=== PATIENT | female | born 1950 | race Caucasian/White ===

== ENCOUNTER 2023-05-22 23:22 | Emergency (ER) | payer MEDICARE, MEDICAID, SELFPAY ==
[2023-05-22 23:28] VITALS: BP 133/91; PULSE 76; RESP 16; TEMP 36.9; O2SAT 99
--- NOTE | 2023-05-22 23:36 | PC.NURSE ---
patient sent from [facility] per EMS for low blood sugar , no report received from [facility]. EMS staff states they were told by [facility] nurse that the patient had a blood sugar in the 60s around 10pm. at that time patient was given glucagon. EMS arrived at [facility] around approx 1115pm and obtained FSBS 113. patient has no complaints at this time aside from chronic back pain, states they discontinued her pain medications at the general acute hospital. states she does not know why the staff sent her to the ER, states she told the [facility] nurse that she did not want to go to the ER and also told EMS staff that she did not want to be taken to the ER.
--- NOTE | 2023-05-22 23:43 | ED.GENADUL1 ---
HPI - General Adult General Chief complaint: Recheck/Abnormal Lab/Rx Stated complaint: HYPOGLYCEMIA Time Seen by Provider: 05/22/23 23:43 Source: patient Mode of arrival: ambulance History of Present Illness HPI narrative: patient resides at half-way. Found to have BS in the 60s. She responded to glucagon. When Squad arrived her BS was 113. she now presents asymptomatic. does have chills. Denies cough. Dialysis patient and does not pass urine. No cough, abdominal pain. She is wearing a cam boot on the left foot due to recent ankle fracture managed by ortho. Onset (ago): hour(s) Related Data Home Medications Medication Instructions Recorded Confirmed acetaminophen 500 mg capsule 500 mg PO Q6H PRN pain 05/22/23 05/22/23 albuterol sulfate 90 mcg/actuation inhalation 05/22/23 aerosol inhaler allopurinol 100 mg tablet 100 mg PO DAILY 05/22/23 05/22/23 apixaban 5 mg tablet (Eliquis) 5 mg PO BID 05/22/23 05/22/23 biotin 5 mg capsule 5 mg PO DAILY 05/22/23 05/22/23 cholecalciferol (vitamin D3) 25 1,000 unit PO DAILY 05/22/23 05/22/23 mcg (1,000 unit) capsule docusate sodium 100 mg capsule 200 mg PO DAILY 05/22/23 05/22/23 (Colace) dulaglutide 0.75 mg/0.5 mL mg subcut 05/22/23 subcutaneous pen injector (Trulicity) fluticasone furoate 100 1 inh inhalation DAILY 05/22/23 05/22/23 mcg-vilanterol 25 mcg/dose inhalation powder (Breo Ellipta) folic acid 1 mg tablet 1 mg PO DAILY 05/22/23 05/22/23 hyoscyamine sulfate 0.125 mg 0.125 mg sublingual Q4H PRN 05/22/23 05/22/23 sublingual tablet dyspepsia insulin regular hum U-500 conc 500 20 unit subcut .COMPLEX 05/22/23 05/22/23 unit/mL(3 mL) subcut pen (Humulin R U-500 (Conc) Insulin Kwikpen) levothyroxine 125 mcg tablet 225 mcg PO DAILY 05/22/23 05/22/23 midodrine 10 mg tablet 10 mg PO .COMPLEX 05/22/23 05/22/23 nutrition tx glu ea PO 05/22/23 intol,lac-free,soy-fiber 0.06 gram-1.1 kcal/mL liquid (Boost Glucose Control) pregabalin 50 mg capsule 50 mg PO DAILY 05/22/23 05/22/23 famotidine 20 mg tablet (Pepcid) 20 mg PO DAILY 05/23/23 05/23/23 hydrocodone 5 mg-acetaminophen 325 2 tab PO Q12H PRN pain 05/23/23 05/23/23 mg tablet midodrine 10 mg tablet 10 mg PO TID 05/23/23 05/23/23 montelukast 10 mg tablet 10 mg PO DAILY 05/23/23 05/23/23 omeprazole 20 mg capsule,delayed 20 mg PO DAILY 05/23/23 05/23/23 release polyethylene glycol ea miscellaneous 05/23/23 sennosides 15 mg tablet (Laxative 8.6 mg PO DAILY 05/23/23 05/23/23 (sennosides)) sevelamer carbonate 800 mg tablet 2,400 mg PO DAILY 05/23/23 05/23/23 sevelamer carbonate 800 mg tablet 800 mg PO .COMPLEX 05/23/23 05/23/23 sodium polystyrene sulfonate 15 120 ml PO .COMPLEX 05/23/23 05/23/23 gram-sorbitol 20 gram/60 mL oral susp (SPS (with sorbitol)) Allergies Allergy/AdvReac Type Severity Reaction Status Date / Time aspirin Allergy Verified 05/22/23 23:34 gentamicin Allergy Verified 05/22/23 23:34 NSAIDS (Non-Steroidal Allergy Verified 05/22/23 23:34 Anti-Inflamma oxycodone Allergy Verified 05/22/23 23:34 Penicillins Allergy Verified 05/22/23 23:34 shrimp Allergy Verified 05/22/23 23:34 tetanus Allergy Uncoded 05/22/23 23:34 Review of Systems ROS Status of ROS 10 or more systems reviewed and unremarkable except as noted in history and below Constitutional Reports: chills Exam Constitutional Vital Signs - 24 hr 05/22/23 23:28 Temperature 98.5 F Pulse Rate [Monitor] 76 Respiratory Rate 16 Blood Pressure [Right Arm] 133/91 H Pulse Oximetry 99 Common normals: no apparent distress and oriented x3 HENMT Common normals: normocephalic and head/scalp atraumatic Eye Common normals: PERRL, EOMs intact bilaterally and conjunctivae normal Respiratory Common normals: normal respiratory effort, no use of accessory muscles and clear to auscultation bilaterally Cardio Common normals: regular rate, regular rhythm, S1 normal heart sound and S2 normal heart sound GI Common normals: non-tender Extremity Other: cam boot LLE Neuro Common normals: oriented x3 and moves all extremities Psych Appearance: grossly normal Course Vital Signs Vital signs: Vital Signs Temperature 98.5 F 05/22/23 23:28 Pulse Rate 76 05/22/23 23:28 Respiratory Rate 16 05/22/23 23:28 Blood Pressure 133/91 H 05/22/23 23:28 Pulse Oximetry 99 05/22/23 23:28 Temperature 98.5 F 05/22/23 23:28 Pulse Rate 76 05/22/23 23:28 Respiratory Rate 16 05/22/23 23:28 Blood Pressure 133/91 H 05/22/23 23:28 Pulse Oximetry 99 05/22/23 23:28 Medical Decision Making MDM Narrative Medical decision making narrative: patient presents from half-way with hypoglycemia. labs demonstrate her BS did decline while she was here. treated by feeding her and monitoring her BS. it improved and was increasing at the time of discharge. She remains stable and is discharged back to the half-way to monitor and treat her diabetes. lab did demonstrate elevated WBC which is not unexpected in someone who becomes hypoglycemic as a reactive leukocytosis Lab Data Labs: Lab Results 05/22/23 05/23/23 05/23/23 Range/Units 00:18 02:06 03:10 WBC 14.8 H (4.0-11.0) 10^3/uL RBC 3.34 L (4.20-5.40) 10^6/uL Hgb 11.3 L (12.0-16.0) g/dL Hct 36.5 (36.0-48.0) % MCV 109.3 H (81.0-99.0) fL MCH 33.8 (26.7-34.0) pg MCHC 31.0 (29.9-35.2) g/dL RDW 13.3 (11.0-15.0) % Plt Count 188 (150-450) 10^3/uL MPV 10.5 (9.5-13.5) fL Neut % (Auto) 80.9 H (43.0-75.0) % Lymph % (Auto) 12.9 L (20.5-60.0) % Latimer % (Auto) 3.9 (1.7-12.0) % Eos % (Auto) 1.1 (0.9-7.0) % Baso % (Auto) 0.5 (0.2-2.0) % Neut # (Auto) 11.9 H (1.4-6.5) 10^3/uL Lymph # (Auto) 1.9 (1.2-3.8) 10^3/uL Latimer # (Auto) 0.6 (0.3-0.8) 10^3/uL Eos # (Auto) 0.2 (0.0-0.7) 10^3/uL Baso # (Auto) 0.1 (0.0-0.1) 10^3/uL Abs Immat Gran (auto) 0.10 H (0.00-0.03) 10^3/uL Imm/Tot Granulo (auto) 0.7 H (0.0-0.5) % Sodium 139 (136-145) mmol/L Potassium 4.4 (3.5-5.1) mmol/L Chloride 99 (98-107) mmol/L Carbon Dioxide 29.5 (21.0-32.0) mmol/L Anion Gap 14.9 BUN 33.0 H (7.0-18.0) mg/dL Creatinine 5.06 H* (0.55-1.02) mg/dL Est GFR ( Amer) 10 L (>=60) Est GFR (Non-Af Amer) 8 L (>=60) BUN/Creatinine Ratio 6.5 Glucose 108 H (74-106) mg/dL Calcium 9.3 (8.5-10.1) mg/dL POC Glucose 86 124 H (74-106) mg/dL 05/23/23 Range/Units 04:04 WBC (4.0-11.0) 10^3/uL RBC (4.20-5.40) 10^6/uL Hgb (12.0-16.0) g/dL Hct (36.0-48.0) % MCV (81.0-99.0) fL MCH (26.7-34.0) pg MCHC (29.9-35.2) g/dL RDW (11.0-15.0) % Plt Count (150-450) 10^3/uL MPV (9.5-13.5) fL Neut % (Auto) (43.0-75.0) % Lymph % (Auto) (20.5-60.0) % Latimer % (Auto) (1.7-12.0) % Eos % (Auto) (0.9-7.0) % Baso % (Auto) (0.2-2.0) % Neut # (Auto) (1.4-6.5) 10^3/uL Lymph # (Auto) (1.2-3.8) 10^3/uL Latimer # (Auto) (0.3-0.8) 10^3/uL Eos # (Auto) (0.0-0.7) 10^3/uL Baso # (Auto) (0.0-0.1) 10^3/uL Abs Immat Gran (auto) (0.00-0.03) 10^3/uL Imm/Tot Granulo (auto) (0.0-0.5) % Sodium (136-145) mmol/L Potassium (3.5-5.1) mmol/L Chloride (98-107) mmol/L Carbon Dioxide (21.0-32.0) mmol/L Anion Gap BUN (7.0-18.0) mg/dL Creatinine (0.55-1.02) mg/dL Est GFR ( Amer) (>=60) Est GFR (Non-Af Amer) (>=60) BUN/Creatinine Ratio Glucose (74-106) mg/dL Calcium (8.5-10.1) mg/dL POC Glucose 173 H (74-106) mg/dL Discharge Plan Discharge Chief Complaint: Recheck/Abnormal Lab/Rx Clinical Impression: Hypoglycemia Patient Disposition: Home, Self-Care Prescriptions / Home Meds: No Action acetaminophen 500 mg capsule 500 mg PO Q6H PRN (Reason: pain) allopurinol 100 mg tablet 100 mg PO DAILY albuterol sulfate 90 mcg/actuation HFA aerosol inhaler INHALATION biotin 5 mg capsule 5 mg PO DAILY Boost Glucose Control 0.06-1.1 gram-kcal/mL liquid PO fluticasone furoate-vilanterol [Breo Ellipta] 100-25 mcg/dose blister with device 1 inh INHALATION DAILY cholecalciferol (vitamin D3) 25 mcg (1,000 unit) capsule 1,000 unit PO DAILY docusate sodium [Colace] 100 mg capsule 200 mg PO DAILY Eliquis 5 mg tablet 5 mg PO BID Trulicity 0.75 mg/0.5 mL pen injector SUBCUT folic acid 1 mg tablet 1 mg PO DAILY Humulin R U-500 (Conc) Kwikpen 500 unit/mL (3 mL) insulin pen 20 unit SUBCUT .COMPLEX Rx Instructions: 20 units subcutaneously at bedtime; hyoscyamine sulfate 0.125 mg tablet, sublingual 0.125 mg sublingual Q4H PRN (Reason: dyspepsia) levothyroxine 125 mcg tablet 225 mcg PO DAILY pregabalin 50 mg capsule 50 mg PO DAILY midodrine 10 mg tablet 10 mg PO .COMPLEX Rx Instructions: 10 mg orally Mon, Wed, Fri, for hypotension at dialysis; midodrine 10 mg tablet 10 mg PO TID Rx Instructions: do not give last dose of day after 6PM or within 4 hrs of bedtime montelukast 10 mg tablet 10 mg PO DAILY hydrocodone-acetaminophen 5-325 mg tablet 2 tab PO Q12H PRN (Reason: pain) omeprazole 20 mg capsule,delayed release(DR/EC) 20 mg PO DAILY famotidine [Pepcid] 20 mg tablet 20 mg PO DAILY polyethylene glycol Powder miscellaneous Laxative (sennosides) 15 mg tablet 8.6 mg PO DAILY sevelamer carbonate 800 mg tablet 800 mg PO .COMPLEX Rx Instructions: 800 mg orally bedtime; sevelamer carbonate 800 mg tablet 2,400 mg PO DAILY SPS (with sorbitol) 15-20 gram/60 mL suspension 120 ml PO .COMPLEX Rx Instructions: 120 mL orally every 24hrs as needed for missed dialysis; Instructions: Hypoglycemia in a Person with Diabetes (ED) Additional Instructions: continue to have blood sugar monitor at the half-way Stand Alone Forms: Portal Instructions Referrals: KELLI CARLSON [Primary Care Provider] - 1 week
[2023-05-23 00:31] LABS: Basophils Absolute Auto 0.1 10^3/uL (0.0-0.1); Basophils Percent Auto 0.5 % (0.2-2.0); Eosinophils Absolute Auto 0.2 10^3/uL (0.0-0.7); Eosinophils Percent Auto 1.1 % (0.9-7.0); Hematocrit 36.5 % (36.0-48.0); Hemoglobin 11.3 g/dL (12.0-16.0); Immature Granulocytes Pct Auto 0.7 % (0.0-0.5); Lymphocytes Absolute Auto 1.9 10^3/uL (1.2-3.8); Lymphocytes Percent Auto 12.9 % (20.5-60.0); Mean Corpuscular Hemoglobin 33.8 pg (26.7-34.0); Mean Corpuscular Volume 109.3 fL (81.0-99.0); Mean Platelet Volume 10.5 fL (9.5-13.5); Monocytes Absolute Auto 0.6 10^3/uL (0.3-0.8); Monocytes Percent Auto 3.9 % (1.7-12.0); Neutrophils Absolute Auto 11.9 10^3/uL (1.4-6.5); Neutrophils Percent Auto 80.9 % (43.0-75.0); Platelet Count 188 10^3/uL (150-450); Red Blood Count 3.34 10^6/uL (4.20-5.40); Red Cell Distribution Width 13.3 % (11.0-15.0); White Blood Count 14.8 10^3/uL (4.0-11.0)
[2023-05-23 00:46] LABS: Anion Gap 14.9; BUN Creatinine Ratio 6.5; Calcium 9.3 mg/dL (8.5-10.1); Carbon Dioxide 29.5 mmol/L (21.0-32.0); Chloride 99 mmol/L (98-107); Estimated GFR (African America 10 (>=60); Estimated GFR (Non-African Ame 8 (>=60); Glucose 108 mg/dL (74-106); Potassium 4.4 mmol/L (3.5-5.1); Sodium 139 mmol/L (136-145)
[2023-05-23 02:08] LABS: Glucometer 86 mg/dL (74-106)
[2023-05-23 03:12] LABS: Glucometer 124 mg/dL (74-106)
[2023-05-23 04:05] LABS: Glucometer 173 mg/dL (74-106)
[2023-05-23 05:30] VITALS: BP 122/53; PULSE 87; RESP 16; O2SAT 98
== END 2023-05-23 05:33 | disposition home or self-care (01) ==
PROVIDERS: Emergency Provider Internal Medicine; PCP Family Medicine
DX: E11.649 Type 2 diabetes mellitus with hypoglycemia without coma (principal); Z79.899 Other long term (current) drug therapy; Z79.01 Long term (current) use of anticoagulants; Z79.4 Long term (current) use of insulin
CPT/HCPCS: 36415; 80048; 82948; 85025; 99283

== ENCOUNTER 2023-05-26 13:42 | Outpatient (OUT) | payer MEDICARE, MEDICAID, SELFPAY ==
--- NOTE | 2023-05-26 14:29 | CT_ITS ---
[address] [address] Patient Name: ANNA DOHERTY MRN: [facility]:[id number] date: 1950 Sex: F Assigned Patient Location: CT Current Patient Location: CT Accession/Order Number: [id number] Exam Date: 05/26/2023 14:10 Report Date: 05/26/2023 15:38 At the request of: NON-STAFF PHYSICIAN Procedure: CT abdomen pelvis wo con EXAM: CT abdomen pelvis wo con HISTORY: Kidney Stone COMPARISON: 04/19/2019 TECHNIQUE: Axial CT images were obtained of the abdomen and pelvis without intravenous contrast. Multiplanar reconstructions were performed. ABDOMEN/PELVIS FINDINGS: Lower Chest: Atelectasis or scarring is present in the left lung base. There is a trace left pleural effusion. Liver: Normal nonenhanced appearance and contour. Biliary/Gallbladder: High density material present homogenously throughout the distended gallbladder lumen. A tiny gallstone is noted in the gallbladder neck. Pancreas: Unremarkable. Spleen: Unremarkable. Adrenal Glands: Unremarkable. Kidneys: The kidneys are atrophied bilaterally. Tiny hypodense lesions are present in the kidneys bilaterally which most likely represent cysts.. Multiple small nonobstructing renal calculi are present bilaterally. Gastrointestinal/Peritoneum: No acute abnormality. The appendix is unremarkable. No free air or free fluid. Vascular: Moderate scattered atherosclerotic calcifications are present. Lymph Nodes: No enlarged lymph nodes by CT size criteria. Pelvic Organs: Prior hysterectomy. Bladder: The urinary bladder is nondistended Bones: No acute osseous abnormality. The bones are osteopenic. Multiple chronic vertebral compression fractures are present throughout the visualized spine at T11, T12, L2, L3 Soft tissues: Unremarkable. IMPRESSION: 1. No acute abnormality of the abdomen and pelvis. 2. Nephrolithiasis. 3. Bilateral renal atrophy. 4. Excretion of high density material in the gallbladder lumen which is distended, correlate with possible recent contrast administration. 5. Tiny gallstone in the gallbladder neck region. 6. Osteopenia with multilevel chronic vertebral compression fractures. 7. Prior hysterectomy. Electronically authenticated by: DELIO WESLEY Date: 05/26/2023 15:38
== END 2023-05-26 13:43 | disposition home or self-care (01) ==
LOC: CT 13:43
PROVIDERS: PCP Family Medicine
DX: N20.0 Calculus of kidney (principal); K80.20 Calculus of gallbladder without cholecystitis without obstruction; N26.1 Atrophy of kidney (terminal); K82.9 Disease of gallbladder, unspecified; Z90.710 Acquired absence of both cervix and uterus
CPT/HCPCS: 74176

== ENCOUNTER 2023-06-30 08:15 | Outpatient (REF) | payer MEDICARE, MEDICAID, SELFPAY ==
[2023-06-30 08:33] LABS: Potassium 3.9 mmol/L (3.5-5.1)
== END 2023-06-30 08:16 | disposition home or self-care (01) ==
LOC: LAB 08:15
PROVIDERS: PCP Family Medicine; Visit Provider Internal Medicine
DX: E87.5 Hyperkalemia (principal)
CPT/HCPCS: 36415; 84132

== ENCOUNTER 2023-07-21 12:28 | Emergency (ER) | payer MEDICARE, MEDICAID, SELFPAY ==
[2023-07-21] VITALS (23 sets, daily range): BP systolic 97–153; BP diastolic 0–94; PULSE 71–87; RESP 5–24; TEMP 37; O2SAT 62–99; BMI 39.2
--- NOTE | 2023-07-21 12:40 | CT_ITS ---
The [address] [address] Patient Name: ANNA DOHERTY MRN: [facility]:[id number] date: 1950 Sex: F Assigned Patient Location: ER Current Patient Location: ED.MAIN Accession/Order Number: [id number] Exam Date: 07/21/2023 12:30 Report Date: 07/21/2023 12:58 At the request of: KENDELL JOHNSON Procedure: CT stroke head/brain wo con HEAD CT WITHOUT CONTRAST: 07/21/2023 12:30 PM EDT Clinical Data: Altered Mental Status while on dialysis Comparison: No previous Unenhanced axial data from base to vertex. INTRA-AXIAL: No acute hemorrhage. No acute infarction is evident. EXTRA-AXIAL: No acute hemorrhage. No focal fluid collection BRAIN VOLUME: Mild cerebral atrophy. VENTRICLES: No hydrocephalus PARANASAL SINUSES: No air-fluid levels in the included aspects. Confluent total opacification left maxillary antrum, left anterior ethmoids, and near total opacification left frontal sinus. The left OMC is completely occluded at the level of the middle meatus. MASTOIDS: Clear. CALVARIUM: No acute finding. EXTRACALVARIAL: No acute findings CT/CT stroke head/brain wo con IMPRESSION: 1. No evidence of acute intracranial process on this unenhanced study as described. 2. Significant opacification anterior group of paranasal sinus on the left. Occlusion of drainage pathways at the middle meatus. This may be on the basis of sinonasal inflammatory disease but underlying obstructing lesions with associated inspissated secretions not excluded. All CT scans at this facility use dose modulation, iterative reconstruction, and/or weight based dosing when appropriate to reduce radiation dose to as low as reasonably achievable. Electronically authenticated by: SAMMY GRAJEDA Date: 07/21/2023 12:58
--- NOTE | 2023-07-21 12:55 | ED_ITS ---
HPI - Altered Mental Status General Chief Complaint: Altered Mental Status Stated Complaint: ALTERED MENTAL STATUS Time Seen by Provider: 07/21/23 12:55 Source: patient and other Source comment: EMS PROVIDES HX Mode of arrival: ambulance Limitations: altered mental status History of Present Illness HPI narrative: Presents to emergency department via EMS with a complaint of mental status oswaldo smith. Patient is an end-stage renal disease on hemodialysis Wednesdays and Fridays. She went to her hemodialysis this morning was slightly confused they finish the entire dialysis treatment and she continued to have mentation changes so she was brought into the emergency department. Patient's glucose was 211. Patient complains of left Leg pain. She is awake, alert and oriented to self, place, and situation. She was not able to provide the date. Patient is a resident at the [facility]. She has not been sick with any fever, chills, or cough. She denies any nausea, vomiting, or diarrhea. She denies any abdominal pain. She states she does not make any urine. She states her ankle was injured [place]. She was given Tylenol this morning for the pain. Related Data Home Medications Medication Instructions Recorded Confirmed acetaminophen 500 mg capsule 500 mg PO Q6H PRN pain 05/22/23 05/22/23 albuterol sulfate 90 mcg/actuation 2 puff inhalation Q4H PRN 05/22/23 07/21/23 aerosol inhaler shortness of breath or wheezing allopurinol 100 mg tablet 100 mg PO DAILY 05/22/23 05/22/23 apixaban 5 mg tablet (Eliquis) 5 mg PO BID 05/22/23 05/22/23 biotin 5 mg capsule 5 mg PO DAILY 05/22/23 05/22/23 cholecalciferol (vitamin D3) 25 1,000 unit PO DAILY 05/22/23 05/22/23 mcg (1,000 unit) capsule docusate sodium 100 mg capsule 200 mg PO DAILY 05/22/23 05/22/23 (Colace) dulaglutide 0.75 mg/0.5 mL 0.75 mg subcut QWEEK 05/22/23 07/21/23 subcutaneous pen injector (Trulicity) fluticasone furoate 100 1 inh inhalation DAILY 05/22/23 05/22/23 mcg-vilanterol 25 mcg/dose inhalation powder (Breo Ellipta) folic acid 1 mg tablet 1 mg PO DAILY 05/22/23 05/22/23 hyoscyamine sulfate 0.125 mg 0.125 mg sublingual Q4H PRN 05/22/23 05/22/23 sublingual tablet dyspepsia insulin regular hum U-500 conc 500 20 unit subcut .COMPLEX 05/22/23 05/22/23 unit/mL(3 mL) subcut pen (Humulin R U-500 (Conc) Insulin Kwikpen) levothyroxine 125 mcg tablet 225 mcg PO DAILY 05/22/23 05/22/23 midodrine 10 mg tablet 10 mg PO .COMPLEX 05/22/23 05/22/23 nutrition tx glu See Rx Instructions PO .QHS 05/22/23 07/21/23 intol,lac-free,soy-fiber 0.06 gram-1.1 kcal/mL liquid (Boost Glucose Control) pregabalin 50 mg capsule 100 mg PO DAILY 05/22/23 07/21/23 famotidine 20 mg tablet (Pepcid) 20 mg PO DAILY 05/23/23 05/23/23 hydrocodone 5 mg-acetaminophen 325 2 tab PO Q12H PRN pain 05/23/23 05/23/23 mg tablet montelukast 10 mg tablet 10 mg PO DAILY 05/23/23 05/23/23 omeprazole 20 mg capsule,delayed 20 mg PO DAILY 05/23/23 05/23/23 release polyethylene glycol See Rx Instructions miscellaneous 05/23/23 07/21/23 .COMPLEX sennosides 15 mg tablet (Laxative 15 mg PO DAILY 05/23/23 07/21/23 (sennosides)) sevelamer carbonate 800 mg tablet 2,400 mg PO TID 05/23/23 07/21/23 sevelamer carbonate 800 mg tablet 800 mg PO .COMPLEX 05/23/23 05/23/23 sodium polystyrene sulfonate 15 120 ml PO .COMPLEX 05/23/23 05/23/23 gram-sorbitol 20 gram/60 mL oral susp (SPS (with sorbitol)) Allergies Allergy/AdvReac Type Severity Reaction Status Date / Time aspirin Allergy Verified 07/21/23 12:47 gentamicin Allergy Verified 07/21/23 12:47 NSAIDS (Non-Steroidal Allergy Verified 07/21/23 12:47 Anti-Inflamma oxycodone Allergy Verified 07/21/23 12:47 Penicillins Allergy Verified 07/21/23 12:47 shrimp Allergy Verified 07/21/23 12:47 tetanus Allergy Uncoded 07/21/23 12:47 Review of Systems ROS Status of ROS 10 or more systems reviewed and unremarkable except as noted in history and below [facility] Medical History (Updated 07/21/23 @ 14:31 by Rachael Reveles MD) Exam Narrative Exam Narrative: Nurses notes and vital signs reviewed and patient is not hypoxic. General:Elderly, frail, chronically ill, and in no apparent distress. Skin: Warm, dry, no pallor noted. No Rash Head: Normocephalic, atraumatic. Neck: Supple, non-tender. Eye: Pupils are equal, 1mm. round and EOMI. No scleral icterus. Ears, Nose, Mouth, and Throat: no hemotympany, no posterior oropharynx erythema or nasal mucosal hypertrophy, uvula is mid-line Oral mucosa is dry Cardiovascular: Regular Rate and Rhythm without murmur, gallop or rub. Respiratory: No accessory muscle use or respiratory distress. Lungs are clear to auscultation, no wheezing, rales or rhonchi Chest Wall: no tenderness Back: No midline thoracic or lumbar vertebral tenderness. No CVA tenderness Musculoskeletal: normal ROM, no calf or popliteal tenderness, no lower extremity edema/swelling GI: Obese,Abdomen is soft, non-distended. Normal bowel sounds. No tenderness to palpation. No rebound, guarding, or rigidity noted. Neurological: A&O x2. No cranial nerve dysfunction observed.moves all extremities. Psychiatric: Cooperative Constitutional Vital Signs, click to edit/add: Last Vital Signs Temp 98.6 F 07/21/23 12:41 Pulse 71 07/21/23 16:00 Resp 11 L 07/21/23 16:00 BP 129/55 07/21/23 16:00 Pulse Ox 90 L 07/21/23 16:00 O2 Del Method Room Air 07/21/23 12:41 Course Vital Signs Vital signs: Vital Signs Temperature 98.6 F 07/21/23 12:41 Pulse Rate 86 07/21/23 12:41 Respiratory Rate 20 07/21/23 12:41 Pulse Oximetry 97 07/21/23 12:41 Oxygen Delivery Method Room Air 07/21/23 12:41 Temperature 98.6 F 07/21/23 12:41 Pulse Rate 71 07/21/23 16:00 Respiratory Rate 11 L 07/21/23 16:00 Blood Pressure 129/55 07/21/23 16:00 Pulse Oximetry 90 L 07/21/23 16:00 Oxygen Delivery Method Room Air 07/21/23 12:41 MDM - Altered Mental Status MDM Narrative Medical decision making narrative: CT scan of the brain was done does not show anything acute. Patient complained of left foot pain. She was given [place] for the pain. Patient has a palpable dp+2, tp+2. With discussed the patient with the caregiver at the [facility] who advises the patient has this kind of episodes and has [facility] with the same typee of complaint. And they don't find anything focal. At this time the patient is without objective evidence of an acute process requiring hospitalization or inpatient management. The patient has remained hemodynamically stable. No additional indication for emergent studies at this time. I answered all questions. Discussed discharge instructions including standard anticipatory guidance and what should prompt a return to the emergency department, including if they get worse are not getting better or develops any new or concerning symptoms. I've given them specific time frame in which to follow-up, and who to follow-up with. The patient demonstrates understanding. Patient is nontoxic and stable for discharge with outpatient follow-up. This note was created with the assistance of a speech recognition program. Although the intention is to generate documents that actually reflects the content of the visit, no guarantees can be provided that every mistake has been identified and corrected by editing. Differential Diagnosis Differential diagnosis: Likely altered mental status Medical Records Attestation: I reviewed the patient's medical records. Lab Data Attestation: I reviewed the patient's lab results. Labs: Lab Results 07/21/23 Range/Units 13:07 WBC 10.1 (4.0-11.0) 10^3/uL RBC 3.29 L (4.20-5.40) 10^6/uL Hgb 11.2 L (12.0-16.0) g/dL Hct 34.9 L (36.0-48.0) % MCV 106.1 H (81.0-99.0) fL MCH 34.0 (26.7-34.0) pg MCHC 32.1 (29.9-35.2) g/dL RDW 13.4 (11.0-15.0) % Plt Count 168 (150-450) 10^3/uL MPV 10.8 (9.5-13.5) fL Neut % (Auto) 76.4 H (43.0-75.0) % Lymph % (Auto) 16.2 L (20.5-60.0) % [place] % (Auto) 6.0 (1.7-12.0) % Eos % (Auto) 0.5 L (0.9-7.0) % Baso % (Auto) 0.4 (0.2-2.0) % Neut # (Auto) 7.7 H (1.4-6.5) 10^3/uL Lymph # (Auto) 1.6 (1.2-3.8) 10^3/uL [place] # (Auto) 0.6 (0.3-0.8) 10^3/uL Eos # (Auto) 0.1 (0.0-0.7) 10^3/uL Baso # (Auto) 0.0 (0.0-0.1) 10^3/uL Abs Immat Gran (auto) 0.05 H (0.00-0.03) 10^3/uL Imm/Tot Granulo (auto) 0.5 (0.0-0.5) % PT 10.7 (9.0-11.6) sec INR 1.01 APTT 32.8 (22.3-36.2) sec Sodium 135 L (136-145) mmol/L Potassium 4.3 (3.5-5.1) mmol/L Chloride 93 L (98-107) mmol/L Carbon Dioxide 29.2 (21.0-32.0) mmol/L Anion Gap 17.1 BUN 29.0 H (7.0-18.0) mg/dL Creatinine 4.15 H (0.55-1.02) mg/dL Est GFR ( Amer) 13 L (>=60) Est GFR (Non-Af Amer) 11 L (>=60) BUN/Creatinine Ratio 7.0 Glucose 245 H (74-106) mg/dL Calcium 9.7 (8.5-10.1) mg/dL Total Bilirubin 0.8 (0.2-1.0) mg/dL AST 11 L (15-37) U/L ALT 22 (14-59) U/L Alkaline Phosphatase 259 H (46-116) U/L Troponin I High Sens 15.4 (4.0-51.3) pg/mL Total Protein 8.2 (6.4-8.2) g/dL Albumin 3.9 (3.4-5.0) g/dL Globulin 4.3 g/dL Albumin/Globulin Ratio 0.9 ECG Data Attestation: I personally reviewed and interpreted this ECG as follows: Discharge Plan Discharge Chief Complaint: Altered Mental Status Clinical Impression: ESRD (end stage renal disease) on dialysis, Altered mental status, Chronic pain in left foot Patient Disposition: Home, Self-Care Time of Disposition Decision: 14:30 Condition: Good Mode of Transportation: EMS Prescriptions / Home Meds: No Action acetaminophen 500 mg capsule 500 mg PO Q6H PRN (Reason: pain) allopurinol 100 mg tablet 100 mg PO DAILY albuterol sulfate 90 mcg/actuation HFA aerosol inhaler 2 puff INHALATION Q4H PRN (Reason: shortness of breath or wheezing) biotin 5 mg capsule 5 mg PO DAILY Boost Glucose Control 0.06-1.1 gram-kcal/mL liquid See Rx Instructions PO .QHS Rx Instructions: 237 ML orally QHS; fluticasone furoate-vilanterol [Breo Ellipta] 100-25 mcg/dose blister with device 1 inh INHALATION DAILY cholecalciferol (vitamin D3) 25 mcg (1,000 unit) capsule 1,000 unit PO DAILY docusate sodium [Colace] 100 mg capsule 200 mg PO DAILY Eliquis 5 mg tablet 5 mg PO BID Trulicity 0.75 mg/0.5 mL pen injector 0.75 mg SUBCUT QWEEK Rx Instructions: EVERY MONDAY folic acid 1 mg tablet 1 mg PO DAILY Humulin R U-500 (Conc) Kwikpen 500 unit/mL (3 mL) insulin pen 20 unit SUBCUT .COMPLEX Rx Instructions: 20 units subcutaneously at bedtime; hyoscyamine sulfate 0.125 mg tablet, sublingual 0.125 mg sublingual Q4H PRN (Reason: dyspepsia) levothyroxine 125 mcg tablet 225 mcg PO DAILY pregabalin 50 mg capsule 100 mg PO DAILY midodrine 10 mg tablet 10 mg PO .COMPLEX Rx Instructions: 10 mg orally Mon, Wed, Fri, for hypotension at dialysis; montelukast 10 mg tablet 10 mg PO DAILY hydrocodone-acetaminophen 5-325 mg tablet 2 tab PO Q12H PRN (Reason: pain) omeprazole 20 mg capsule,delayed release(DR/EC) 20 mg PO DAILY famotidine [Pepcid] 20 mg tablet 20 mg PO DAILY polyethylene glycol Powder See Rx Instructions miscellaneous .COMPLEX Rx Instructions: 17 GRAMS QD as directed; Laxative (sennosides) 15 mg tablet 15 mg PO DAILY sevelamer carbonate 800 mg tablet 800 mg PO .COMPLEX Rx Instructions: 800 mg orally bedtime; sevelamer carbonate 800 mg tablet 2,400 mg PO TID SPS (with sorbitol) 15-20 gram/60 mL suspension 120 ml PO .COMPLEX Rx Instructions: 120 mL orally every 24hrs as needed for missed dialysis; Instructions: Altered Mental Status (ED), End Stage Kidney Disease (ED) Stand Alone Forms: Portal Instructions Referrals: KELLI CARLSON [Primary Care Provider] - 1 week Discharge Date/Time: 07/21/23 16:00
--- NOTE | 2023-07-21 13:00 | XR_ITS ---
The [address] [address] Patient Name: ANNA DOHERTY MRN: [id number] date: 1950 Sex: F Assigned Patient Location: ER Current Patient Location: ER Accession/Order Number: [id number] Exam Date: 07/21/2023 13:20 Report Date: 07/21/2023 13:45 At the request of: KENDELL JOHNSON Procedure: XR chest 1V EXAM: XR chest 1V HISTORY: mentla status changes COMPARISON: None. TECHNIQUE: AP view of the chest. FINDINGS: The cardiomediastinal silhouette is normal. The lungs are clear. There is no pneumothorax. No pleural effusion is noted. The osseous structures are intact. XR/XR chest 1V IMPRESSION: No acute cardiopulmonary process. Electronically authenticated by: PALAK GUNN Date: 07/21/2023 13:45
--- NOTE | 2023-07-21 13:00 | ECG_ITS ---
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
[2023-07-21 13:19] LABS: Basophils Percent Auto 0.4 % (0.2-2.0); Eosinophils Absolute Auto 0.1 10^3/uL (0.0-0.7); Eosinophils Percent Auto 0.5 % (0.9-7.0); Hematocrit 34.9 % (36.0-48.0); Hemoglobin 11.2 g/dL (12.0-16.0); Immature Granulocytes Abs Auto 0.05 10^3/uL (0.00-0.03); Immature Granulocytes Pct Auto 0.5 % (0.0-0.5); Lymphocytes Absolute Auto 1.6 10^3/uL (1.2-3.8); Lymphocytes Percent Auto 16.2 % (20.5-60.0); Mean Corpuscular HGB Conc 32.1 g/dL (29.9-35.2); Mean Corpuscular Volume 106.1 fL (81.0-99.0); Mean Platelet Volume 10.8 fL (9.5-13.5); Monocytes Absolute Auto 0.6 10^3/uL (0.3-0.8); Neutrophils Absolute Auto 7.7 10^3/uL (1.4-6.5); Neutrophils Percent Auto 76.4 % (43.0-75.0); Platelet Count 168 10^3/uL (150-450); Red Blood Count 3.29 10^6/uL (4.20-5.40); Red Cell Distribution Width 13.4 % (11.0-15.0); White Blood Count 10.1 10^3/uL (4.0-11.0)
[2023-07-21 13:31] LABS: Alanine Aminotransferase 22 U/L (14-59); Albumin Globulin Ratio 0.9; Albumin Level 3.9 g/dL (3.4-5.0); Alkaline Phosphatase 259 U/L (46-116); Anion Gap 17.1; Aspartate Amino Transferase 11 U/L (15-37); Bilirubin Total 0.8 mg/dL (0.2-1.0); Calcium 9.7 mg/dL (8.5-10.1); Carbon Dioxide 29.2 mmol/L (21.0-32.0); Chloride 93 mmol/L (98-107); Estimated GFR (African America 13 (>=60); Estimated GFR (Non-African Ame 11 (>=60); Globulin 4.3 g/dL; Glucose 245 mg/dL (74-106); Potassium 4.3 mmol/L (3.5-5.1); Sodium 135 mmol/L (136-145); Total Protein 8.2 g/dL (6.4-8.2); Troponin I High Sensitivity 15.4 pg/mL (4.0-51.3)
[2023-07-21 13:33] LABS: INR 1.01; Partial Thromboplastin Time 32.8 sec (22.3-36.2); Prothrombin Time 10.7 sec (9.0-11.6)
== END 2023-07-21 16:00 | disposition home or self-care (01) ==
PROVIDERS: Emergency Provider Emergency Medicine; PCP Family Medicine
DX: R41.82 Altered mental status, unspecified (principal); N18.6 End stage renal disease; M79.672 Pain in left foot; G89.29 Other chronic pain; Z99.2 Dependence on renal dialysis; Z79.899 Other long term (current) drug therapy; Z79.01 Long term (current) use of anticoagulants; Z79.4 Long term (current) use of insulin; Z79.890 Hormone replacement therapy
CPT/HCPCS: 36415; 70450; 71045; 80053; 84484; 85610; 85730; 93005; 99285

== ENCOUNTER 2023-09-01 10:22 | Outpatient (REF) | payer MEDICARE, MEDICAID, SELFPAY ==
[2023-09-04 13:11] LABS: Occult Blood Positive
== END 2023-09-01 10:23 | disposition home or self-care (01) ==
LOC: LAB 10:22
PROVIDERS: PCP Family Medicine
DX: D64.9 Anemia, unspecified (principal)
CPT/HCPCS: G0328

== ENCOUNTER 2023-09-03 10:19 | Outpatient (REF) | payer MEDICARE, MEDICAID, SELFPAY ==
[2023-09-04 13:11] LABS: Occult Blood Positive
== END 2023-09-03 10:20 | disposition home or self-care (01) ==
LOC: LAB 10:19
PROVIDERS: PCP Family Medicine; Visit Provider Family Medicine
DX: D64.9 Anemia, unspecified (principal)
CPT/HCPCS: G0328

== ENCOUNTER 2023-09-05 00:32 | Outpatient (REF) | payer MEDICARE, MEDICAID, SELFPAY ==
[2023-09-06 16:04] LABS: Occult Blood Positive
== END 2023-09-05 00:33 | disposition home or self-care (01) ==
LOC: LAB 00:32
PROVIDERS: PCP Family Medicine; Visit Provider Family Medicine
DX: D64.9 Anemia, unspecified (principal)
CPT/HCPCS: G0328

== ENCOUNTER 2023-09-15 07:57 | Outpatient (REF) | payer MEDICARE, MEDICAID, SELFPAY ==
[2023-09-15 08:12] LABS: Potassium 5.3 mmol/L (3.5-5.1)
== END 2023-09-15 07:58 | disposition home or self-care (01) ==
LOC: LAB 07:57
PROVIDERS: PCP Family Medicine; Visit Provider Internal Medicine Nephrology
DX: E87.5 Hyperkalemia (principal)
CPT/HCPCS: 36415; 84132

== ENCOUNTER 2023-12-04 15:26 | Outpatient (OUT) | payer MEDICARE, MEDICAID, SELFPAY | END 2023-12-04 15:27 | disposition home or self-care (01) | LOC: SLEEP 15:26 | PROVIDERS: PCP Nurse Practitioner Adult Health; Visit Provider Nurse Practitioner Adult Health | DX: G47.33 Obstructive sleep apnea (adult) (pediatric) (principal) ==

== ENCOUNTER 2023-12-11 07:00 | Outpatient (OUT) | payer MEDICARE, MEDICAID, SELFPAY | END 2023-12-11 07:01 | disposition home or self-care (01) | LOC: SLEEP 12-12 15:27 | PROVIDERS: PCP Nurse Practitioner Adult Health; Visit Provider Nurse Practitioner Adult Health | DX: R40.4 Transient alteration of awareness (principal); G47.33 Obstructive sleep apnea (adult) (pediatric) | CPT/HCPCS: 95806 ==

== ENCOUNTER 2024-01-31 15:18 | Emergency (ER) | payer MEDICARE, MEDICAID, SELFPAY ==
[2024-01-31] VITALS (31 sets, daily range): BP systolic 118–129; BP diastolic 60–88; PULSE 75–93; RESP 12–24; TEMP 37.1; O2SAT 84–100; BMI 41.7
--- NOTE | 2024-01-31 15:00 | ECG_ITS ---
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
--- NOTE | 2024-01-31 15:30 | ED_ITS ---
HPI - General Adult General Chief complaint: Abdominal Pain Stated complaint: FLANK PAIN Time Seen by Provider: 01/31/24 15:26 Source: patient Mode of arrival: ambulance Limitations: no limitations History of Present Illness HPI narrative: Patient is a 73-year-old female who is presenting to the ER today with chief complaint of pain since 8:00 last night. Patient states that she has been having pain last night, throughout the morning until now. Patient states that the [facility]. Patient Has multiple comorbidities, patien is on dialysis Monday, Monday, Monday, she did finish her dialysis. Patient has a history of kidney stones, patient was told that she has multiple kidney stones in her kidney. Last time patient passed a kidney stone was over 10 years ago. Patient has had stents in the past by urologist. Patient states her pain feels like kidney stone. Patient states she has all her abdominal organs besides no uterus. Patient does not ambulate, she is wheelchair-bound only. Patient does have an electric wheelchair that she can use. Patient has a fistula to her left upper arm. Patient has a graft in her left forearm that they do not use anymore. Dr. Richar English. Patient states she been having right shoulder pain since 2014 when she broke her right shoulder. 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 Patient has history of major depression. Patient does not make urine. All systems are negative except as noted/marked. All systems reviewed and otherwise negative. Nurses note and vital signs reviewed and patient is not hypoxic. General: The patient appears mild to moderate distress secondary to pain. Patient is morbidly obese, patient is resting uncomfortably on cart. Patient is not toxic, lethargic, or listless Skin: Warm, dry, no pallor noted. There is no rash noted. No petechiae, purpura. Head: Normocephalic, atraumatic Eye: Normal conjunctiva, no drainage, EOMI. PERRL Ears, Nose, Mouth, and Throat: oral mucosa is moist. Nares patent. Mouth without vesicles. Cardiovascular: Regular Rate and Rhythm, no murmur, gallop, rub. Patient has no rash to her right lower anterior, lateral, posterior chest wall. Patient has no rash to the right lower abdominal, lateral, or posterior lower back. Patient has no right CVA tenderness, no right flank pain, patient does have right upper quadrant and right lower quadrant tenderness to palpation, no suprapubic tenderness palpation. Respiratory: Patient is in no distress, no accessory muscle use, lungs are clear to auscultation, no wheezing, rales or rhonchi Back: non-tender, no CVA tenderness bilaterally to percussion. No CT LS midline pain GI: no tenderness to palpation, no masses appreciated. No rebound, guarding, or rigidity noted. No distention Musculoskeletal: Patient has full range of motion of all of the extremities; patient has pain with range of motion of right shoulder secondary to previous fracture back in 2015. Patient has a fistula to her left upper arm, good thrills and bruits. Patient has a graft to her left forearm with no thrills or bruits. no motor, sensory, or focal neurological deficits Neurological: A&O x4, normal speech Psychiatric: Cooperative Related Data Home Medications Medication Instructions Recorded Confirmed acetaminophen 500 mg capsule 500 mg PO Q6H PRN pain 05/22/23 01/31/24 albuterol sulfate 90 mcg/actuation 2 puff inhalation Q4H PRN 05/22/23 01/31/24 aerosol inhaler shortness of breath or wheezing allopurinol 100 mg tablet 100 mg PO DAILY 05/22/23 01/31/24 apixaban 5 mg tablet (Eliquis) 5 mg PO BID 05/22/23 01/31/24 biotin 5 mg capsule 5 mg PO DAILY 05/22/23 01/31/24 cholecalciferol (vitamin D3) 25 1,000 unit PO DAILY 05/22/23 01/31/24 mcg (1,000 unit) capsule docusate sodium 100 mg capsule 200 mg PO DAILY 05/22/23 01/31/24 (Colace) dulaglutide 0.75 mg/0.5 mL 0.75 mg subcut QWEEK 05/22/23 07/21/23 subcutaneous pen injector (Trulicity) fluticasone furoate 100 1 inh inhalation DAILY 05/22/23 01/31/24 mcg-vilanterol 25 mcg/dose inhalation powder (Breo Ellipta) folic acid 1 mg tablet 1 mg PO DAILY 05/22/23 01/31/24 hyoscyamine sulfate 0.125 mg 0.125 mg sublingual Q4H PRN 05/22/23 01/31/24 sublingual tablet dyspepsia insulin regular hum U-500 conc 500 20 unit subcut .COMPLEX 05/22/23 01/31/24 unit/mL(3 mL) subcut pen (Humulin R U-500 (Conc) Insulin Kwikpen) levothyroxine 125 mcg tablet 225 mcg PO DAILY 05/22/23 01/31/24 midodrine 10 mg tablet 10 mg PO Q4H 05/22/23 01/31/24 nutrition tx glu See Rx Instructions PO .QHS 05/22/23 07/21/23 intol,lac-free,soy-fiber 0.06 gram-1.1 kcal/mL liquid (Boost Glucose Control) pregabalin 50 mg capsule 100 mg PO DAILY 05/22/23 01/31/24 famotidine 20 mg tablet (Pepcid) 20 mg PO DAILY 05/23/23 05/23/23 hydrocodone 5 mg-acetaminophen 325 2 tab PO Q12H PRN pain 05/23/23 01/31/24 mg tablet montelukast 10 mg tablet 10 mg PO DAILY 05/23/23 01/31/24 omeprazole 20 mg capsule,delayed 20 mg PO Q12H 05/23/23 01/31/24 release polyethylene glycol See Rx Instructions miscellaneous 05/23/23 01/31/24 .COMPLEX sennosides 15 mg tablet (Laxative 15 mg PO DAILY 05/23/23 07/21/23 (sennosides)) sevelamer carbonate 800 mg tablet 2,400 mg PO TID 05/23/23 01/31/24 sevelamer carbonate 800 mg tablet 800 mg PO .COMPLEX 05/23/23 01/31/24 sodium polystyrene sulfonate 15 120 ml PO .COMPLEX 05/23/23 05/23/23 gram-sorbitol 20 gram/60 mL oral susp (SPS (with sorbitol)) fluconazole 100 mg tablet mg 01/31/24 levothyroxine 100 mcg tablet 100 mcg PO DAILY 01/31/24 01/31/24 nortriptyline 10 mg capsule 25 mg PO DAILY 01/31/24 01/31/24 ondansetron HCl 4 mg tablet 4 mg PO Q6H 01/31/24 01/31/24 semaglutide 3 mg tablet (Rybelsus) mg PO DAILY 01/31/24 sennosides 8.6 mg capsule (senna) 8.6 mg PO DAILY 01/31/24 01/31/24 Allergies Allergy/AdvReac Type Severity Reaction Status Date / Time aspirin Allergy Verified 07/21/23 12:47 gentamicin Allergy Verified 07/21/23 12:47 NSAIDS (Non-Steroidal Allergy Verified 07/21/23 12:47 Anti-Inflamma oxycodone Allergy Verified 07/21/23 12:47 Penicillins Allergy Verified 07/21/23 12:47 shrimp Allergy Verified 07/21/23 12:47 tetanus Allergy Uncoded 07/21/23 12:47 [facility] Medical History (Updated 01/31/24 @ 19:51 by Richar Phan MD) 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 ?Z79.4 - 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 (ICD-10) Hyperlipidemia, unspecified ?E78.5 - Hyperlipidemia, unspecified (ICD-10) End stage renal disease ?N18.6 - End stage renal disease (ICD-10) Hypertensive chronic kidney disease with stage 5 chronic kidney disease or end stage renal disease ?I12.0 - Hypertensive chronic kidney disease with stage 5 chronic kidney disease or end stage renal disease (ICD-10) Hyperkalemia ?E87.5 - Hyperkalemia (ICD-10) Other specified complication of vascular prosthetic devices, implants and grafts, initial encounter ?T82.898A - Other specified complication of vascular prosthetic devices, implants and grafts, initial encounter (ICD-10) 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 ?N25.81 - Secondary hyperparathyroidism of renal origin (ICD-10) ?N18.6 - End stage renal disease (ICD-10) ?Z99.2 - Dependence on renal dialysis (ICD-10) Personal history of urinary calculi ?Z87.442 - Personal history of urinary calculi (ICD-10) Discitis, unspecified, site unspecified ?M46.40 - Discitis, unspecified, site unspecified (ICD-10) Osteomyelitis of vertebra, thoracic region ?M46.24 - Osteomyelitis of vertebra, thoracic region (ICD-10) Ankle fracture, left ?S82.892A - Other fracture of left lower leg, initial encounter for closed fracture (ICD-10) Dialysis patient ?Z99.2 - Dependence on renal dialysis (ICD-10) Social History Smoking status: Former smoker Exam Constitutional Vital Signs, click to edit/add: Last Vital Signs Temp 98.7 F 01/31/24 15:20 Pulse 85 01/31/24 19:20 Resp 16 01/31/24 19:20 BP 118/60 01/31/24 15:20 Pulse Ox 99 01/31/24 19:20 O2 Del Method Room Air 01/31/24 16:18 O2 Flow Rate 2 01/31/24 16:18 Course Vital Signs Vital signs: Vital Signs Blood Pressure 129/88 01/31/24 13:51 Temperature 98.7 F 01/31/24 15:20 Pulse Rate 85 01/31/24 19:20 Respiratory Rate 16 01/31/24 19:20 Blood Pressure 118/60 01/31/24 15:20 Pulse Oximetry 99 01/31/24 19:20 Oxygen Delivery Method Room Air 01/31/24 16:18 Oxygen Delivery Flow Rate 2 01/31/24 16:18 Medical Decision Making MDM Narrative Medical decision making narrative: Patient was given injection of Toradol for pain prior to arrival. Patient was given IV morphine and IV Zofran. Patient is not given fluids at this time, she has had no nausea or vomiting. Patient has been having intermittent right lower back, flank, abdominal pain since 8:00 last night. Patient believes she has another kidney stone. IV was established, labs, CT will be done as well. Patient had white blood cell count of 12, elevated alkaline phosphatase but no other elevation of AST, ALT, or bilirubin. CT scan shows cholelithiasis with sludge. Reassessment at discharge shows no pain to middepigastric area, right upper quadrant, no flank pain, no right lower quadrant tenderness to palpation. Patient has benign abdomen at transfer back to nursing facility. No pain, no nausea, no vomiting, patient's been sleeping the last several hours comfortably with no complaints. Patient will be sent back to [facility]. Patient will follow-up with surgeon if needed. No signs of kidney stones which patient was concerned with. A copy of patient's CAT scan report was given to her. No questions at discharge. Lab Data Lab results reviewed: Yes I reviewed the patient's lab results Labs: Lab Results 01/31/24 Range/Units 15:58 WBC 12.3 H (4.0-11.0) 10^3/uL RBC 3.44 L (4.20-5.40) 10^6/uL Hgb 11.1 L (12.0-16.0) g/dL Hct 36.8 (36.0-48.0) % MCV 107.0 H (81.0-99.0) fL MCH 32.3 (26.7-34.0) pg MCHC 30.2 (29.9-35.2) g/dL RDW 16.1 H (11.0-15.0) % Plt Count 178 (150-450) 10^3/uL MPV 11.9 (9.5-13.5) fL Neut % (Auto) 82.6 H (43.0-75.0) % Lymph % (Auto) 9.7 L (20.5-60.0) % Haakon % (Auto) 6.1 (1.7-12.0) % Eos % (Auto) 0.6 L (0.9-7.0) % Baso % (Auto) 0.5 (0.2-2.0) % Neut # (Auto) 10.1 H (1.4-6.5) 10^3/uL Lymph # (Auto) 1.2 (1.2-3.8) 10^3/uL Haakon # (Auto) 0.8 (0.3-0.8) 10^3/uL Eos # (Auto) 0.1 (0.0-0.7) 10^3/uL Baso # (Auto) 0.1 (0.0-0.1) 10^3/uL Abs Immat Gran (auto) 0.06 H (0.00-0.03) 10^3/uL Imm/Tot Granulo (auto) 0.5 (0.0-0.5) % Sodium 133 L (136-145) mmol/L Potassium 4.5 (3.5-5.1) mmol/L Chloride 95 L (98-107) mmol/L Carbon Dioxide 29.7 (21.0-32.0) mmol/L Anion Gap 12.8 BUN 28.0 H (7.0-18.0) mg/dL Creatinine 5.18 H* (0.55-1.02) mg/dL Est GFR ( Amer) 10 L (>=60) Est GFR (Non-Af Amer) 8 L (>=60) BUN/Creatinine Ratio 5.4 Glucose 298 H (74-106) mg/dL Calcium 9.2 (8.5-10.1) mg/dL Total Bilirubin 0.7 (0.2-1.0) mg/dL AST 10 L (15-37) U/L ALT 18 (14-59) U/L Alkaline Phosphatase 187 H (46-116) U/L Total Protein 8.1 (6.4-8.2) g/dL Albumin 3.2 L (3.4-5.0) g/dL Globulin 4.9 g/dL Albumin/Globulin Ratio 0.7 Lipase 16.0 (16.0-77.0) U/L No significant elevation in LFTs. White blood cell count 12. Imaging Data CT scan - abdomen: Radiologist's impression: ITS Impressions Abdomen/Pelvis CT 01/31/24 15:42 IMPRESSION: 1. Gallbladder distended with cholelithiasis and/or sludge. If clinical concern for acute cholecystitis consider further evaluation with ultrasound and/or nuclear medicine HIDA scan. 2. Otherwise, no other acute abnormalities in the abdomen or pelvis. 3. 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 4. Multilevel chronic compression fractures, severe height loss at the T12 compression fracture. Electronically authenticated by: TERESA TREJO Date: 01/31/2024 17:07 ECG Data Attestation: I personally reviewed and interpreted this ECG as follows: (EKG interpretation. Baseline normal sinus rhythm at 89 beats a minute. Normal axis deviation. Artifact noted. QTc of 415.) Discharge Plan Discharge Chief Complaint: Abdominal Pain Clinical Impression: Renal colic on right side, Cholelithiasis, Biliary colic Patient Disposition: Home, Self-Care Condition: Fair Prescriptions / Home Meds: No Action acetaminophen 500 mg capsule 500 mg PO Q6H PRN (Reason: pain) allopurinol 100 mg tablet 100 mg PO DAILY albuterol sulfate 90 mcg/actuation HFA aerosol inhaler 2 puff INHALATION Q4H PRN (Reason: shortness of breath or wheezing) biotin 5 mg capsule 5 mg PO DAILY Boost Glucose Control 0.06-1.1 gram-kcal/mL liquid See Rx Instructions PO .QHS Rx Instructions: 237 ML orally QHS; fluticasone furoate-vilanterol [Breo Ellipta] 100-25 mcg/dose blister with device 1 inh INHALATION DAILY cholecalciferol (vitamin D3) 25 mcg (1,000 unit) capsule 1,000 unit PO DAILY docusate sodium [Colace] 100 mg capsule 200 mg PO DAILY Eliquis 5 mg tablet 5 mg PO BID Trulicity 0.75 mg/0.5 mL pen injector 0.75 mg SUBCUT QWEEK Rx Instructions: EVERY MONDAY folic acid 1 mg tablet 1 mg PO DAILY Humulin R U-500 (Conc) Kwikpen 500 unit/mL (3 mL) insulin pen 20 unit SUBCUT .COMPLEX Rx Instructions: 20 units subcutaneously at bedtime; hyoscyamine sulfate 0.125 mg tablet, sublingual 0.125 mg sublingual Q4H PRN (Reason: dyspepsia) levothyroxine 125 mcg tablet 225 mcg PO DAILY pregabalin 50 mg capsule 100 mg PO DAILY midodrine 10 mg tablet 10 mg PO Q4H montelukast 10 mg tablet 10 mg PO DAILY hydrocodone-acetaminophen 5-325 mg tablet 2 tab PO Q12H PRN (Reason: pain) omeprazole 20 mg capsule,delayed release(DR/EC) 20 mg PO Q12H famotidine [Pepcid] 20 mg tablet 20 mg PO DAILY polyethylene glycol Powder See Rx Instructions miscellaneous .COMPLEX Rx Instructions: 17 GRAMS QD as directed; Laxative (sennosides) 15 mg tablet 15 mg PO DAILY sevelamer carbonate 800 mg tablet 800 mg PO .COMPLEX Rx Instructions: 800 mg orally bedtime; sevelamer carbonate 800 mg tablet 2,400 mg PO TID SPS (with sorbitol) 15-20 gram/60 mL suspension 120 ml PO .COMPLEX Rx Instructions: 120 mL orally every 24hrs as needed for missed dialysis; nortriptyline 10 mg capsule 25 mg PO DAILY ondansetron HCl 4 mg tablet 4 mg PO Q6H levothyroxine 100 mcg tablet 100 mcg PO DAILY Rybelsus 3 mg tablet PO DAILY senna 8.6 mg capsule 8.6 mg PO DAILY fluconazole 100 mg tablet Instructions: Biliary Colic (ED), Gallstones (ED), Renal Colic (ED) Additional Instructions: A copy of your CAT scan report was given to you. You have no signs of an acute gallbladder that would need surgery at this time. If you continue to have symptoms, follow-up with her PCP or surgeon. Referrals: CAREN ROBLES [Physician] - 1 week Clifton Araiza DO [Physician] - 1 week Stand Alone Forms: Portal Instructions
--- NOTE | 2024-01-31 15:42 | CT_ITS ---
The [address] [address] Patient Name: ANNA DOHERTY MRN: [id number] date: 1950 Sex: F Assigned Patient Location: ER Current Patient Location: Accession/Order Number: [id number] Exam Date: 01/31/2024 16:20 Report Date: 01/31/2024 17:07 At the request of: SHERYL MORRISON Procedure: CT abdomen pelvis wo con EXAM: CT scan of the abdomen and pelvis without contrast. Dose reduction technique used: Automated exposure control and/or adjustment of the mA and/or kV according to patient size and/or use of iterative reconstruction technique. REASON FOR EXAM: right sided pain COMPARISON: CT scan dated 05/26/2023 FINDINGS: Hypodensity material in the gallbladder could be from cholelithiasis and/or sludge. Distended gallbladder. Small left renal cyst. Small fat-containing ventral hernia. T11, T12, L2, L3 and L5 compression fractures are chronic. There is severe height loss at the T12 compression fracture level. Small pancreatic cystic lesions, largest measuring up to 12 mm, this is not significantly changed. Bilateral calyceal tip renal stones. Hysterectomy. Small amount of atelectasis in the lower lungs bilaterally. Trace bilateral pleural effusions. No ureteral or bladder calculi. No hydronephrosis. Normal appendix. No free fluid in the abdomen or pelvis. No free intraperitoneal air. No dilated or thickened loops of small bowel or colon. Liver, pancreas, spleen, bilateral kidneys, and bilateral adrenal glands are otherwise unremarkable within the limitations of noncontrast CT. No lymphadenopathy in the abdomen or pelvis. Remainder unremarkable. CT/CT abdomen pelvis wo con IMPRESSION: 1. Gallbladder distended with cholelithiasis and/or sludge. If clinical concern for acute cholecystitis consider further evaluation with ultrasound and/or nuclear medicine HIDA scan. 2. Otherwise, no other acute abnormalities in the abdomen or pelvis. 3. 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 4. Multilevel chronic compression fractures, severe height loss at the T12 compression fracture. Electronically authenticated by: TERESA TREJO Date: 01/31/2024 17:07
[2024-01-31] MEDS: ONDANSETRON PF 4 MG/2 ML VIAL IV (16:00)
[2024-01-31] MEDS: MORPHINE SULFATE 2 MG/ML SYRINGE 4 MG IV (16:00)
[2024-01-31 16:04] LABS: Basophils Absolute Auto 0.1 10^3/uL (0.0-0.1); Basophils Percent Auto 0.5 % (0.2-2.0); Eosinophils Absolute Auto 0.1 10^3/uL (0.0-0.7); Eosinophils Percent Auto 0.6 % (0.9-7.0); Hematocrit 36.8 % (36.0-48.0); Hemoglobin 11.1 g/dL (12.0-16.0); Immature Granulocytes Abs Auto 0.06 10^3/uL (0.00-0.03); Immature Granulocytes Pct Auto 0.5 % (0.0-0.5); Lymphocytes Absolute Auto 1.2 10^3/uL (1.2-3.8); Lymphocytes Percent Auto 9.7 % (20.5-60.0); Mean Corpuscular HGB Conc 30.2 g/dL (29.9-35.2); Mean Corpuscular Hemoglobin 32.3 pg (26.7-34.0); Mean Platelet Volume 11.9 fL (9.5-13.5); Monocytes Absolute Auto 0.8 10^3/uL (0.3-0.8); Monocytes Percent Auto 6.1 % (1.7-12.0); Neutrophils Absolute Auto 10.1 10^3/uL (1.4-6.5); Neutrophils Percent Auto 82.6 % (43.0-75.0); Platelet Count 178 10^3/uL (150-450); Red Cell Distribution Width 16.1 % (11.0-15.0); White Blood Count 12.3 10^3/uL (4.0-11.0)
[2024-01-31 16:18] LABS: Alanine Aminotransferase 18 U/L (14-59); Albumin Globulin Ratio 0.7; Albumin Level 3.2 g/dL (3.4-5.0); Alkaline Phosphatase 187 U/L (46-116); Anion Gap 12.8; Aspartate Amino Transferase 10 U/L (15-37); BUN Creatinine Ratio 5.4; Bilirubin Total 0.7 mg/dL (0.2-1.0); Calcium 9.2 mg/dL (8.5-10.1); Carbon Dioxide 29.7 mmol/L (21.0-32.0); Chloride 95 mmol/L (98-107); Estimated GFR (African America 10 (>=60); Estimated GFR (Non-African Ame 8 (>=60); Globulin 4.9 g/dL; Glucose 298 mg/dL (74-106); Potassium 4.5 mmol/L (3.5-5.1); Sodium 133 mmol/L (136-145); Total Protein 8.1 g/dL (6.4-8.2)
[2024-01-31 16:45] LABS: Red Blood Count 3.44 10^6/uL (4.20-5.40)
[2024-01-31] MEDS: HYDROCODONE/ACET 5-325 MG TABLET 2 TAB PO (22:29)
--- NOTE | 2024-01-31 23:21 | PC.NURSE ---
[facility] rosa isela to update her on poc for pt and discharge
== END 2024-02-01 00:07 | disposition home or self-care (01) ==
PROVIDERS: Emergency Provider Emergency Medicine; PCP Family Medicine
DX: K80.70 Calculus of gallbladder and bile duct without cholecystitis without obstruction (principal); N23 Unspecified renal colic; Z99.2 Dependence on renal dialysis; Z87.442 Personal history of urinary calculi; Z99.3 Dependence on wheelchair; Z90.710 Acquired absence of both cervix and uterus; Z86.718 Personal history of other venous thrombosis and embolism; Z79.01 Long term (current) use of anticoagulants; E66.01 Morbid (severe) obesity due to excess calories; Z68.41 Body mass index [BMI] 40.0-44.9, adult; Z79.4 Long term (current) use of insulin; Z79.899 Other long term (current) drug therapy; E78.5 Hyperlipidemia, unspecified; I12.0 Hypertensive chronic kidney disease with stage 5 chronic kidney disease or end stage renal disease; N25.81 Secondary hyperparathyroidism of renal origin; Z87.891 Personal history of nicotine dependence; M48.54XA Collapsed vertebra, not elsewhere classified, thoracic region, initial encounter for fracture; Z79.85 Long-term (current) use of injectable non-insulin antidiabetic drugs; N18.6 End stage renal disease
CPT/HCPCS: 36415; 74176; 80053; 83690; 85025; 93005; 96374; 96375; 99285

== ENCOUNTER 2024-04-02 12:10 | Outpatient (OUT) | payer MEDICARE, SELFPAY ==
[2024-04-02 13:14] LABS: Basophils Absolute Auto 0.1 10^3/uL (0.0-0.1); Basophils Percent Auto 0.6 % (0.2-2.0); Eosinophils Absolute Auto 0.2 10^3/uL (0.0-0.7); Eosinophils Percent Auto 1.1 % (0.9-7.0); Hematocrit 34.6 % (36.0-48.0); Immature Granulocytes Abs Auto 0.08 10^3/uL (0.00-0.03); Immature Granulocytes Pct Auto 0.6 % (0.0-0.5); Lymphocytes Absolute Auto 2.1 10^3/uL (1.2-3.8); Lymphocytes Percent Auto 14.9 % (20.5-60.0); Mean Corpuscular HGB Conc 28.9 g/dL (29.9-35.2); Mean Corpuscular Hemoglobin 31.3 pg (26.7-34.0); Mean Corpuscular Volume 108.1 fL (81.0-99.0); Mean Platelet Volume 11.3 fL (9.5-13.5); Monocytes Absolute Auto 0.6 10^3/uL (0.3-0.8); Monocytes Percent Auto 4.5 % (1.7-12.0); Neutrophils Percent Auto 78.3 % (43.0-75.0); Platelet Count 190 10^3/uL (150-450); Reticulocyte Pct Auto 4.38 % (0.60-3.10)
[2024-04-02 13:36] LABS: Lactate Dehydrogenase 127 U/L (81-234)
[2024-04-03 05:08] LABS: Haptoglobin 135 mg/dL (42-346)
== END 2024-04-02 12:11 | disposition home or self-care (01) ==
PROVIDERS: PCP Family Medicine; Visit Provider Family Medicine
DX: D50.9 Iron deficiency anemia, unspecified (principal)
CPT/HCPCS: 36415; 82607; 82728; 82746; 83010; 83540; 83550; 83615; 85025; 85045

== ENCOUNTER 2024-04-15 13:03 | Outpatient (OUT) | payer MEDICARE, MEDICAID, SELFPAY ==
--- NOTE | 2024-04-15 14:20 | PM.CN ---
Consult Note: HPI Data of Consult Patient: new to practice Consult date: 04/15/24 Requesting Physician: Derek Dennis MD Primary Care Provider: KELLI CARLSON Consult Narrative Reason for consult: left arm pain Narrative: 74yof who presents for evaluation. worsening left arm pain, worsened after surgery in january. pain radiates from left shoulder to left fingers. on norco and lyrica, but does not help. no advanced imaging for review. continues in >6 weeks of provider directed home exercise, without benefit. denies adverse med side effects. 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 ?Z79.4 - [facility] (current) use of insulin (ICD-10) Hyperlipidemia, unspecified ?E78.5 - Hyperlipidemia, unspecified (ICD-10) End stage renal disease ?N18.6 - End stage renal disease (ICD-10) Hypertensive chronic kidney disease with stage 5 chronic kidney disease or end stage renal disease ?I12.0 - Hypertensive chronic kidney disease with stage 5 chronic kidney disease or end stage renal disease (ICD-10) Hyperkalemia ?E87.5 - Hyperkalemia (ICD-10) Other specified complication of vascular prosthetic devices, implants and grafts, initial encounter ?T82.898A - Other specified complication of vascular prosthetic devices, implants and grafts, initial encounter (ICD-10) 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 ?N25.81 - Secondary hyperparathyroidism of renal origin (ICD-10) ?N18.6 - End stage renal disease (ICD-10) ?Z99.2 - Dependence on renal dialysis (ICD-10) Personal history of urinary calculi ?Z87.442 - Personal history of urinary calculi (ICD-10) Discitis, unspecified, site unspecified ?M46.40 - Discitis, unspecified, site unspecified (ICD-10) Osteomyelitis of vertebra, thoracic region ?M46.24 - Osteomyelitis of vertebra, thoracic region (ICD-10) Ankle fracture, left ?S82.892A - Other fracture of left lower leg, initial encounter for closed fracture (ICD-10) Dialysis patient ?Z99.2 - Dependence on renal dialysis (ICD-10) Social History Smoking status: Former smoker Meds Home Medications and Allergies Home Medications ?Medication ?Instructions ?Recorded ?Confirmed ?Type acetaminophen 500 mg capsule 500 mg PO Q6H PRN pain 05/22/23 01/31/24 History albuterol sulfate 90 mcg/actuation 2 puff inhalation Q4H PRN 05/22/23 01/31/24 History aerosol inhaler shortness of breath or wheezing allopurinol 100 mg tablet 100 mg PO DAILY 05/22/23 01/31/24 History apixaban 5 mg tablet (Eliquis) 5 mg PO BID 05/22/23 01/31/24 History biotin 5 mg capsule 5 mg PO DAILY 05/22/23 01/31/24 History cholecalciferol (vitamin D3) 25 1,000 unit PO DAILY 05/22/23 01/31/24 History mcg (1,000 unit) capsule docusate sodium 100 mg capsule 200 mg PO DAILY 05/22/23 01/31/24 History (Colace) dulaglutide 0.75 mg/0.5 mL 0.75 mg subcut QWEEK 05/22/23 07/21/23 History subcutaneous pen injector (Trulicity) fluticasone furoate 100 1 inh inhalation DAILY 05/22/23 01/31/24 History mcg-vilanterol 25 mcg/dose inhalation powder (Breo Ellipta) folic acid 1 mg tablet 1 mg PO DAILY 05/22/23 01/31/24 History hyoscyamine sulfate 0.125 mg 0.125 mg sublingual Q4H PRN 05/22/23 01/31/24 History sublingual tablet dyspepsia insulin regular hum U-500 conc 500 20 unit subcut .COMPLEX 05/22/23 01/31/24 History unit/mL(3 mL) subcut pen (Humulin R U-500 (Conc) Insulin Kwikpen) levothyroxine 125 mcg tablet 225 mcg PO DAILY 05/22/23 01/31/24 History midodrine 10 mg tablet 10 mg PO Q4H 05/22/23 01/31/24 History nutrition tx glu See Rx Instructions PO .QHS 05/22/23 07/21/23 History intol,lac-free,soy-fiber 0.06 gram-1.1 kcal/mL liquid (Boost Glucose Control) pregabalin 50 mg capsule 100 mg PO DAILY 05/22/23 01/31/24 History famotidine 20 mg tablet (Pepcid) 20 mg PO DAILY 05/23/23 05/23/23 History hydrocodone 5 mg-acetaminophen 325 2 tab PO Q12H PRN pain 05/23/23 01/31/24 History mg tablet montelukast 10 mg tablet 10 mg PO DAILY 05/23/23 01/31/24 History omeprazole 20 mg capsule,delayed 20 mg PO Q12H 05/23/23 01/31/24 History release polyethylene glycol See Rx Instructions miscellaneous 05/23/23 01/31/24 History .COMPLEX sennosides 15 mg tablet (Laxative 15 mg PO DAILY 05/23/23 07/21/23 History (sennosides)) sevelamer carbonate 800 mg tablet 2,400 mg PO TID 05/23/23 01/31/24 History sevelamer carbonate 800 mg tablet 800 mg PO .COMPLEX 05/23/23 01/31/24 History sodium polystyrene sulfonate 15 120 ml PO .COMPLEX 05/23/23 05/23/23 History gram-sorbitol 20 gram/60 mL oral susp (SPS (with sorbitol)) fluconazole 100 mg tablet mg 01/31/24 History levothyroxine 100 mcg tablet 100 mcg PO DAILY 01/31/24 01/31/24 History nortriptyline 10 mg capsule 25 mg PO DAILY 01/31/24 01/31/24 History ondansetron HCl 4 mg tablet 4 mg PO Q6H 01/31/24 01/31/24 History semaglutide 3 mg tablet (Rybelsus) mg PO DAILY 01/31/24 History sennosides 8.6 mg capsule (senna) 8.6 mg PO DAILY 01/31/24 01/31/24 History Allergies Allergy/AdvReac Type Severity Reaction Status Date / Time aspirin Allergy Verified 07/21/23 12:47 gentamicin Allergy Verified 07/21/23 12:47 NSAIDS (Non-Steroidal Allergy Verified 07/21/23 12:47 Anti-Inflamma oxycodone Allergy Verified 07/21/23 12:47 Penicillins Allergy Verified 07/21/23 12:47 shrimp Allergy Verified 07/21/23 12:47 tetanus Allergy Uncoded 07/21/23 12:47 Exam Narrative Exam Narrative: Psych-alert and oriented x 3.? Attentive and appropriate, constitutionally normal, displays normal mood and affect per situation.? There are no obvious deficits in memory, reasoning, or intellect.? Skin-no obvious rashes, bruising, or erythema noted to the patient's area of pain.? Extremities-upper extremities are warm with minimal edema and palpable pulses. Cervical- tenderness to palpation noted in the cervical spine and paraspinal musculature.? Pain is elicited with flexion, extension, and lateral rotation of the cervical spine.? Range of motion is diminished due to pain. Facet loading maneuvers are negative.? Strength-unremarkable and within normal limits with the exception to the left biceps, triceps. Sensory-no notable sensory deficits in the bilateral upper extremities to touch or pinprick with the exception to decreased sensation to the left C6, 7 dermatomal distribution.? Coordination remains intact.? Gait remains non-antalgic. Assessment and Plan Assessment and Plan (1) Cervical stenosis of spinal canal: Plan 74yof who presents for evaluation. failed conservative measures, as noted. given worsening symptoms, will obtain cervical mri without contrast. she is in agreement. meds reviewed. will trial cymbalta 30mg qhs. follow up after imaging.
== END 2024-04-15 13:04 | disposition home or self-care (01) ==
LOC: PM 13:04
PROVIDERS: PCP Family Medicine; Visit Provider Anesthesiology
DX: M48.02 Spinal stenosis, cervical region (principal)
CPT/HCPCS: G0463

== ENCOUNTER 2024-05-07 09:26 | Outpatient (OUT) | payer MEDICARE, MEDICAID, SELFPAY ==
--- NOTE | 2024-05-07 09:29 | MR_ITS ---
The [address] [address] Patient Name: ANNA DOHERTY MRN: [facility]:[id number] date: 1950 Sex: F Assigned Patient Location: MRI Current Patient Location: Accession/Order Number: [id number] Exam Date: 05/07/2024 11:03 Report Date: 05/08/2024 07:41 At the request of: AMRY WOOTEN Procedure: MR cervical spine wo con EXAMINATION: MR cervical spine wo con HISTORY: Cervical Stenosis COMPARISON: No relevant comparison available. TECHNIQUE: A variety of imaging planes and parameters were utilized for visualization of suspected pathology. FINDINGS: Limited evaluation with poor nyurzr-en-fxazu ratio axial images are CRANIOCERVICAL AREA: Normal foramen magnum with no Chiari malformation. PARASPINAL AREA: Normal with no visible mass. BONES: Normal alignment with no acute fracture, dislocation or bone edema. Mild to moderate degenerative spondylosis most significant C6-C7 CORD: Normal caliber, contour, and signal intensity. CERVICAL DISC LEVELS: C2-C3: Early degenerative disc disease is present without focal protrusion or neural impingement. C3-C4: Early degenerative disc disease is present without focal protrusion or neural impingement. C4-C5: Moderate disc space narrowing and disc desiccation. Mild diffuse disc/osteophyte complex with a left paracentral preforaminal disc herniation of the protrusion type extending posteriorly up to 3.2 mm best seen on sagittal image 5 , axial image 14. Facet osteoarthropathy likely resulting in left foraminal stenosis C5-C6: Early degenerative disc disease is present without focal protrusion or neural impingement. C6-C7: Space narrowing and desiccation. Mild diffuse disc/osteophyte complex. No central or foraminal stenosis C7-T1:. Early degenerative disc disease is present without focal protrusion or neural impingement. MR/MR cervical spine wo con IMPRESSION: Wmbc-cm-[id number] degenerative changes with suspected left C4-C5 foraminal stenosis Posterior C4-C5 disc herniation detailed above Electronically authenticated by: EMILY QUINTANILLA Date: 05/08/2024 07:41
== END 2024-05-07 09:27 | disposition home or self-care (01) ==
LOC: MRI 09:26
PROVIDERS: PCP Family Medicine; Visit Provider Anesthesiology
DX: M48.02 Spinal stenosis, cervical region (principal); M50.30 Other cervical disc degeneration, unspecified cervical region
CPT/HCPCS: 72141

== ENCOUNTER 2024-05-23 14:09 | Outpatient (OUT) | payer MEDICARE, MEDICAID, SELFPAY ==
--- NOTE | 2024-05-23 14:40 | PM.CN ---
Consult Note: HPI Data of Consult Patient: known to practice within the last 3 years Consult date: 04/15/24 Requesting Physician: Vikki Ferreira NP Primary Care Provider: KELLI CARLSON Consult Narrative Reason for consult: left arm pain Narrative: 74yof who presents for evaluation. worsening left arm pain, worsened after surgery in january. pain radiates from left shoulder to left fingers. on norco and lyrica, but does not help. continues in >6 weeks of provider directed home exercise, without benefit. denies adverse med side effects. Recent cervical MRI reveals aiyh-fy-lzuefljw degenerative changes with suspected left C4-C5 foraminal stenosis and posterior C4-C5 disc herniation as well as disc space narrowing and desiccation. 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-10) Hyperlipidemia, unspecified ?E78.5 - Hyperlipidemia, unspecified (ICD-10) End stage renal disease ?N18.6 - End stage renal disease (ICD-10) Hypertensive chronic kidney disease with stage 5 chronic kidney disease or end stage renal disease ?I12.0 - Hypertensive chronic kidney disease with stage 5 chronic kidney disease or end stage renal disease (ICD-10) Hyperkalemia ?E87.5 - Hyperkalemia (ICD-10) Other specified complication of vascular prosthetic devices, implants and grafts, initial encounter ?T82.898A - Other specified complication of vascular prosthetic devices, implants and grafts, initial encounter (ICD-10) 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 ?N25.81 - Secondary hyperparathyroidism of renal origin (ICD-10) ?N18.6 - End stage renal disease (ICD-10) ?Z99.2 - Dependence on renal dialysis (ICD-10) Personal history of urinary calculi ?Z87.442 - Personal history of urinary calculi (ICD-10) Discitis, unspecified, site unspecified ?M46.40 - Discitis, unspecified, site unspecified (ICD-10) Osteomyelitis of vertebra, thoracic region ?M46.24 - Osteomyelitis of vertebra, thoracic region (ICD-10) Ankle fracture, left ?S82.892A - Other fracture of left lower leg, initial encounter for closed fracture (ICD-10) Dialysis patient ?Z99.2 - Dependence on renal dialysis (ICD-10) Social History Smoking status: Former smoker Meds Home Medications and Allergies Home Medications ?Medication ?Instructions ?Recorded ?Confirmed ?Type acetaminophen 500 mg capsule 500 mg PO Q6H PRN pain 05/22/23 01/31/24 History albuterol sulfate 90 mcg/actuation 2 puff inhalation Q4H PRN 05/22/23 01/31/24 History aerosol inhaler shortness of breath or wheezing allopurinol 100 mg tablet 100 mg PO DAILY 05/22/23 01/31/24 History apixaban 5 mg tablet (Eliquis) 5 mg PO BID 05/22/23 01/31/24 History biotin 5 mg capsule 5 mg PO DAILY 05/22/23 01/31/24 History cholecalciferol (vitamin D3) 25 1,000 unit PO DAILY 05/22/23 01/31/24 History mcg (1,000 unit) capsule docusate sodium 100 mg capsule 200 mg PO DAILY 05/22/23 01/31/24 History (Colace) folic acid 1 mg tablet 1 mg PO DAILY 05/22/23 01/31/24 History hyoscyamine sulfate 0.125 mg 0.125 mg sublingual Q4H PRN 05/22/23 01/31/24 History sublingual tablet dyspepsia insulin regular hum U-500 conc 500 20 unit subcut .COMPLEX 05/22/23 01/31/24 History unit/mL(3 mL) subcut pen (Humulin R U-500 (Conc) Insulin Kwikpen) levothyroxine 125 mcg tablet 225 mcg PO DAILY 05/22/23 01/31/24 History midodrine 10 mg tablet 10 mg PO .QD 05/22/23 04/15/24 History nutrition tx glu See Rx Instructions PO .QHS 05/22/23 07/21/23 History intol,lac-free,soy-fiber 0.06 gram-1.1 kcal/mL liquid (Boost Glucose Control) pregabalin 50 mg capsule 100 mg PO DAILY 05/22/23 01/31/24 History hydrocodone 5 mg-acetaminophen 325 2 tab PO Q12H PRN pain 05/23/23 01/31/24 History mg tablet montelukast 10 mg tablet 10 mg PO DAILY 05/23/23 01/31/24 History omeprazole 20 mg capsule,delayed 20 mg PO Q12H 05/23/23 01/31/24 History release polyethylene glycol See Rx Instructions miscellaneous 05/23/23 01/31/24 History .COMPLEX sennosides 15 mg tablet (Laxative 15 mg PO DAILY 05/23/23 07/21/23 History (sennosides)) sevelamer carbonate 800 mg tablet 2,400 mg PO .HS 05/23/23 04/15/24 History sevelamer carbonate 800 mg tablet 800 mg PO .COMPLEX 05/23/23 01/31/24 History sodium polystyrene sulfonate 15 120 ml PO .COMPLEX 05/23/23 05/23/23 History gram-sorbitol 20 gram/60 mL oral susp (SPS (with sorbitol)) levothyroxine 100 mcg tablet 100 mcg PO DAILY 01/31/24 01/31/24 History nortriptyline 10 mg capsule 25 mg PO DAILY 01/31/24 01/31/24 History ondansetron HCl 4 mg tablet 4 mg PO Q6H 01/31/24 01/31/24 History semaglutide 3 mg tablet (Rybelsus) mg PO DAILY 01/31/24 History sennosides 8.6 mg capsule (senna) 8.6 mg PO DAILY 01/31/24 01/31/24 History Lactobacillus rhamnosus GG 10 cap PO 04/15/24 History billion cell-inulin 200 mg capsule ([facility]) ammonium lactate 12 %-12 % topical ea topical .QD 04/15/24 History kit carboxymethylcellulose sodium 1 % 2 drp ophthalmic (eye) DAILY PRN 04/15/24 04/15/24 History eye liquid gel drops (Refresh dry eye(s) Liquigel) dextromethorphan-guaifenesin 10 10 ml PO Q4H PRN cough 04/15/24 04/15/24 History mg-100 mg/5 mL oral syrup (Antitussive DM) diclofenac sodium 1 % topical gel topical 04/15/24 History diphenhydramine HCl 25 mg capsule 25 mg PO Q8H PRN itching 04/15/24 04/15/24 History (Banophen) duloxetine 30 mg capsule,delayed 30 mg PO .HS 04/15/24 04/15/24 History release (Cymbalta) fluticasone furoate 100 1 inh inhalation DAILY 04/15/24 04/15/24 History mcg-vilanterol 25 mcg/dose inhalation powder (Breo Ellipta) fluticasone propionate 50 intranasal 04/15/24 History mcg/actuation nasal spray,suspension glucagon HCl 1 mg solution for 1 mg IM Q20M PRN hypoglycemia 04/15/24 04/15/24 History injection (Glucagon (HCl) Emergency Kit) guaifenesin 600 mg tablet, 600 mg PO BID PRN congestion 04/15/24 04/15/24 History extended release 12 hr (Mucinex) hydrocortisone 2.5 % topical cream 1 applic CO Q6H PRN hemorrhoids 04/15/24 04/15/24 History with perineal applicator (Anusol-HC) insulin regular hum U-500 conc 500 25 unit subcut TID 04/15/24 04/15/24 History unit/mL(3 mL) subcut pen (Humulin R U-500 (Conc) Insulin Kwikpen) insulin regular hum U-500 conc 500 35 unit subcut QPM 04/15/24 04/15/24 History unit/mL(3 mL) subcut pen (Humulin R U-500 (Conc) Insulin Kwikpen) insulin regular hum U-500 conc 500 40 unit subcut QAM 04/15/24 04/15/24 History unit/mL(3 mL) subcut pen (Humulin R U-500 (Conc) Insulin Kwikpen) lidocaine HCl 4 % topical cream 1 applic topical Q8H PRN pain 04/15/24 04/15/24 History (Aspercreme (lidocaine HCl)) Allergies Allergy/AdvReac Type Severity Reaction Status Date / Time aspirin Allergy Verified 07/21/23 12:47 gentamicin Allergy Verified 07/21/23 12:47 NSAIDS (Non-Steroidal Allergy Verified 07/21/23 12:47 Anti-Inflamma oxycodone Allergy Verified 07/21/23 12:47 Penicillins Allergy Verified 07/21/23 12:47 shrimp Allergy Verified 07/21/23 12:47 tetanus Allergy Uncoded 07/21/23 12:47 Exam Narrative Exam Narrative: Psych-alert and oriented x 3.? Attentive and appropriate, constitutionally normal, displays normal mood and affect per situation.? There are no obvious deficits in memory, reasoning, or intellect.? Skin-no obvious rashes, bruising, or erythema noted to the patient's area of pain.? Extremities-upper extremities are warm with minimal edema and palpable pulses. Cervical- tenderness to palpation noted in the cervical spine and paraspinal musculature.? Pain is elicited with flexion, extension, and lateral rotation of the cervical spine.? Range of motion is diminished due to pain. Facet loading maneuvers are negative.? Strength-unremarkable and within normal limits with the exception to the left biceps, triceps. Sensory-no notable sensory deficits in the bilateral upper extremities to touch or pinprick with the exception to decreased sensation to the left C6, 7 dermatomal distribution.? Coordination remains intact.? Gait remains non-antalgic. Results Additional Findings Additional findings: If on a controlled substance or opioids, I have checked an [place] report on this patient and there are no aberrancies noted in the prescribing history.??If on a controlled substance or opioid a drug screen was completed and reviewed within the last year, and if there has not been a drug screen completed we ordered one today to monitor higher risk, state monitored pain medication use. As part of providing excellent, safe, comprehensive care, the following was completed at our patient's visit: 1. A medication reconciliation and review to ensure accurate knowledge of current/active medications, including asking our patients to inform us about any tfzv-whu-tmdfnna medications or herbal remedies/nutritional supplements/alternative remedies. 2. A review to specifically ensure our patients have had annual screening for screening for depression, screening for tobacco use, and screening for unhealthy alcohol use. For concerning screenings had a discussion with the patient, provided patient education, and recommended follow-up with primary care provider when appropriate. If patient noted with a risk of falling, they received education on strength, gait, and balance training to prevent future risk of falling. Assessment and Plan Assessment and Plan (1) Cervical stenosis of spinal canal: (2) Cervical radiculopathy: Plan Left C4-5 C6-7 TFESI under fluoroscopy, risks vs benefits reviewed continue HEP as tolerated continue current medications, tolerating well without side effects f/u 2 weeks after GOSIA
== END 2024-05-23 14:10 | disposition home or self-care (01) ==
LOC: PM 14:09
PROVIDERS: PCP Family Medicine; Visit Provider Nurse Practitioner
DX: M48.02 Spinal stenosis, cervical region (principal); M54.12 Radiculopathy, cervical region
CPT/HCPCS: G0463

== ENCOUNTER 2024-06-01 00:59 | Emergency (ER) | payer MEDICARE, MEDICAID, SELFPAY ==
[2024-06-01] VITALS (36 sets, daily range): BP systolic 86–160; BP diastolic 48–110; PULSE 73–135; TEMP 36.6–37.1; O2SAT 86–99; BMI 41.6
--- NOTE | 2024-06-01 01:13 | ECG_ITS ---
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
--- NOTE | 2024-06-01 01:14 | ED_ITS ---
HPI - Abdominal Pain General Chief Complaint: Abdominal Pain Stated Complaint: Abdominal Pain Time Seen by Provider: 06/01/24 01:11 Source: patient and EMR Mode of arrival: ambulance Limitations: no limitations History of Present Illness HPI narrative: 74-year-old female presents to the emergency department for abdominal pain. She states it has been like that for about the last 12 hours and its everywhere. She had dialysis earlier today. She has been having normal bowel movements and does not make urine. No trauma or fever. The pain is moderate and continuous. Related Data Home Medications ?Medication ?Instructions ?Recorded ?Confirmed acetaminophen 500 mg capsule 500 mg PO Q6H PRN pain 05/22/23 06/01/24 albuterol sulfate 90 mcg/actuation 2 puff inhalation Q4H PRN 05/22/23 06/01/24 aerosol inhaler shortness of breath or wheezing allopurinol 100 mg tablet 100 mg PO DAILY 05/22/23 06/01/24 apixaban 5 mg tablet (Eliquis) 5 mg PO BID 05/22/23 06/01/24 biotin 5 mg capsule 5 mg PO DAILY 05/22/23 06/01/24 cholecalciferol (vitamin D3) 25 1,000 unit PO DAILY 05/22/23 06/01/24 mcg (1,000 unit) capsule docusate sodium 100 mg capsule 200 mg PO DAILY 05/22/23 06/01/24 (Colace) folic acid 1 mg tablet 1 mg PO DAILY 05/22/23 06/01/24 hyoscyamine sulfate 0.125 mg 0.125 mg sublingual Q4H PRN 05/22/23 06/01/24 sublingual tablet dyspepsia insulin regular hum U-500 conc 500 20 unit subcut .COMPLEX 05/22/23 06/01/24 unit/mL(3 mL) subcut pen (Humulin R U-500 (Conc) Insulin Kwikpen) levothyroxine 125 mcg tablet 225 mcg PO DAILY 05/22/23 06/01/24 midodrine 10 mg tablet 10 mg PO .QD 05/22/23 06/01/24 nutrition tx glu See Rx Instructions PO .QHS 05/22/23 07/21/23 intol,lac-free,soy-fiber 0.06 gram-1.1 kcal/mL liquid (Boost Glucose Control) pregabalin 50 mg capsule 100 mg PO DAILY 05/22/23 01/31/24 hydrocodone 5 mg-acetaminophen 325 2 tab PO Q12H PRN pain 05/23/23 06/01/24 mg tablet montelukast 10 mg tablet 10 mg PO DAILY 05/23/23 06/01/24 omeprazole 20 mg capsule,delayed 20 mg PO Q12H 05/23/23 06/01/24 release polyethylene glycol See Rx Instructions miscellaneous 05/23/23 01/31/24 .COMPLEX sennosides 15 mg tablet (Laxative 15 mg PO DAILY 05/23/23 07/21/23 (sennosides)) sevelamer carbonate 800 mg tablet 2,400 mg PO .HS 05/23/23 04/15/24 sevelamer carbonate 800 mg tablet 800 mg PO .COMPLEX 05/23/23 01/31/24 sodium polystyrene sulfonate 15 120 ml PO .COMPLEX 05/23/23 05/23/23 gram-sorbitol 20 gram/60 mL oral susp (SPS (with sorbitol)) levothyroxine 100 mcg tablet 100 mcg PO DAILY 01/31/24 06/01/24 nortriptyline 10 mg capsule 25 mg PO DAILY 01/31/24 06/01/24 ondansetron HCl 4 mg tablet 4 mg PO Q6H 01/31/24 01/31/24 semaglutide 3 mg tablet (Rybelsus) mg PO DAILY 01/31/24 sennosides 8.6 mg capsule (senna) 8.6 mg PO DAILY 01/31/24 01/31/24 Lactobacillus rhamnosus GG 10 1 cap PO DAILY 04/15/24 06/01/24 billion cell-inulin 200 mg capsule ([facility] [employer] [facility]) ammonium lactate 12 %-12 % topical ea topical .QD 04/15/24 kit carboxymethylcellulose sodium 1 % 2 drp ophthalmic (eye) DAILY PRN 04/15/24 04/15/24 eye liquid gel drops (Refresh dry eye(s) Liquigel) dextromethorphan-guaifenesin 10 10 ml PO Q4H PRN cough 04/15/24 04/15/24 mg-100 mg/5 mL oral syrup (Antitussive DM) diclofenac sodium 1 % topical gel 4 g topical Q8H PRN pain 04/15/24 06/01/24 diphenhydramine HCl 25 mg capsule 25 mg PO Q8H PRN itching 04/15/24 06/01/24 (Banophen) duloxetine 30 mg capsule,delayed 30 mg PO .HS 04/15/24 04/15/24 release (Cymbalta) fluticasone furoate 100 1 inh inhalation DAILY 04/15/24 06/01/24 mcg-vilanterol 25 mcg/dose inhalation powder (Breo Ellipta) fluticasone propionate 50 2 spray intranasal .hs 04/15/24 06/01/24 mcg/actuation nasal spray,suspension glucagon HCl 1 mg solution for 1 mg IM Q20M PRN hypoglycemia 04/15/24 06/01/24 injection (Glucagon (HCl) Emergency Kit) guaifenesin 600 mg tablet, 600 mg PO BID PRN congestion 04/15/24 04/15/24 extended release 12 hr (Mucinex) hydrocortisone 2.5 % topical cream 1 applic [place] Q6H PRN hemorrhoids 04/15/24 06/01/24 with perineal applicator (Anusol-HC) insulin regular hum U-500 conc 500 25 unit subcut TID 04/15/24 06/01/24 unit/mL(3 mL) subcut pen (Humulin R U-500 (Conc) Insulin Kwikpen) insulin regular hum U-500 conc 500 35 unit subcut QPM 04/15/24 06/01/24 unit/mL(3 mL) subcut pen (Humulin R U-500 (Conc) Insulin Kwikpen) insulin regular hum U-500 conc 500 40 unit subcut QAM 04/15/24 06/01/24 unit/mL(3 mL) subcut pen (Humulin R U-500 (Conc) Insulin Kwikpen) lidocaine HCl 4 % topical cream 1 applic topical Q8H PRN pain 04/15/24 06/01/24 (Aspercreme (lidocaine HCl)) Allergies Allergy/AdvReac Type Severity Reaction Status Date / Time aspirin Allergy Unknown Verified 06/01/24 01:09 gentamicin Allergy cutaneous Verified 06/01/24 01:09 hypersensativity NSAIDS (Non-Steroidal Allergy Unknown Verified 06/01/24 01:09 Anti-Inflamma oxycodone Allergy Unknown Verified 06/01/24 01:09 Penicillins Allergy Unknown Verified 06/01/24 01:09 shrimp Allergy Anaphylaxis Verified 06/01/24 01:09 tetanus Allergy Unknown Uncoded 06/01/24 01:09 [facility] Medical History (Updated 06/01/24 @ 05:57 by Cornell Browning MD) prison (current) use of insulin ?Z79.4 - prison (current) use of insulin (ICD-10) Hyperlipidemia, unspecified ?E78.5 - Hyperlipidemia, unspecified (ICD-10) End stage renal disease ?N18.6 - End stage renal disease (ICD-10) Hypertensive chronic kidney disease with stage 5 chronic kidney disease or end stage renal disease ?I12.0 - Hypertensive chronic kidney disease with stage 5 chronic kidney disease or end stage renal disease (ICD-10) Hyperkalemia ?E87.5 - Hyperkalemia (ICD-10) Other specified complication of vascular prosthetic devices, implants and grafts, initial encounter ?T82.898A - Other specified complication of vascular prosthetic devices, implants and grafts, initial encounter (ICD-10) 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 ?N25.81 - Secondary hyperparathyroidism of renal origin (ICD-10) ?N18.6 - End stage renal disease (ICD-10) ?Z99.2 - Dependence on renal dialysis (ICD-10) Personal history of urinary calculi ?Z87.442 - Personal history of urinary calculi (ICD-10) Discitis, unspecified, site unspecified ?M46.40 - Discitis, unspecified, site unspecified (ICD-10) Osteomyelitis of vertebra, thoracic region ?M46.24 - Osteomyelitis of vertebra, thoracic region (ICD-10) Ankle fracture, left ?S82.892A - Other fracture of left lower leg, initial encounter for closed fracture (ICD-10) Dialysis patient ?Z99.2 - Dependence on renal dialysis (ICD-10) Social History Smoking status: Former smoker Exam Narrative Exam Narrative: Nurses note and vital signs reviewed and patient is not hypoxic. General: The patient appears in no apparent distress. Patient is resting comfortably on cart. Skin: Warm, dry, no pallor noted. There is no rash noted. Head: Normocephalic, atraumatic Eye: Normal conjunctiva, no drainage Ears, Nose, Mouth, and Throat: oral mucosa is moist. Nares patent. Cardiovascular: Regular Rate and Rhythm Respiratory: Patient is in no distress, no accessory muscle use, lungs are clear to auscultation, no wheezing, rales or rhonchi GI: Obese soft and mildly diffusely tender Musculoskeletal: The patient has no evidence of calf tenderness, symmetrical pulses noted bilaterally Neurological: A&O, normal speech Psychiatric: Cooperative Constitutional Vital Signs, click to edit/add: Last Vital Signs Temp 98.7 F 06/01/24 01:01 Pulse 92 H 06/01/24 05:15 Resp 17 06/01/24 05:15 BP 136/90 06/01/24 05:00 Pulse Ox 99 06/01/24 05:15 O2 Del Method Room Air 06/01/24 01:53 Course Vital Signs Vital signs: Vital Signs Temperature 98.7 F 06/01/24 01:01 Pulse Rate 91 H 06/01/24 01:01 Respiratory Rate 22 H 06/01/24 01:01 Blood Pressure 112/54 06/01/24 01:01 Pulse Oximetry 93 L 06/01/24 01:01 Oxygen Delivery Method Room Air 06/01/24 01:01 Temperature 98.7 F 06/01/24 01:01 Pulse Rate 92 H 06/01/24 05:15 Respiratory Rate 17 06/01/24 05:15 Blood Pressure 136/90 06/01/24 05:00 Pulse Oximetry 99 06/01/24 05:15 Oxygen Delivery Method Room Air 06/01/24 01:53 MDM - Abdominal Pain MDM Narrative Medical decision making narrative: Potassium was found to be 7.0 and 7.2 on the repeat. She was given D50 and insulin and Lokelma. WBC 20,000 and CAT scan suggest an enlarged gallbladder with a stone in the neck with possible obstruction but no stranding or other markers of inflammation noted on the CAT scan. She was given IV Levaquin because of her allergies and I have spoken to hospitalist at [facility] and he accepts her for transfer. She is agreeable and stable for transfer. Differential Diagnosis Differential diagnosis: Likely abdominal pain, acute appendicitis, constipation, diverticulitis, gastroenteritis, pancreatitis and small bowel obstruction Lab Data Attestation: I reviewed the patient's lab results. Labs: Lab Results 06/01/24 06/01/24 06/01/24 Range/Units 01:40 01:45 03:08 WBC 20.6 H (4.0-11.0) 10^3/uL RBC 3.90 L (4.20-5.40) 10^6/uL Hgb 12.1 (12.0-16.0) g/dL Hct 40.5 (36.0-48.0) % MCV 103.8 H (81.0-99.0) fL MCH 31.0 (26.7-34.0) pg MCHC 29.9 (29.9-35.2) g/dL RDW 16.1 H (11.0-15.0) % Plt Count 205 (150-450) 10^3/uL MPV 11.1 (9.5-13.5) fL Neut % (Auto) 87.6 H (43.0-75.0) % Lymph % (Auto) 6.7 L (20.5-60.0) % [place] % (Auto) 4.4 (1.7-12.0) % Eos % (Auto) 0.1 L (0.9-7.0) % Baso % (Auto) 0.4 (0.2-2.0) % Neut # (Auto) 18.0 H (1.4-6.5) 10^3/uL Lymph # (Auto) 1.4 (1.2-3.8) 10^3/uL [place] # (Auto) 0.9 H (0.3-0.8) 10^3/uL Eos # (Auto) 0.0 (0.0-0.7) 10^3/uL Baso # (Auto) 0.1 (0.0-0.1) 10^3/uL Abs Immat Gran (auto) 0.17 H (0.00-0.03) 10^3/uL Imm/Tot Granulo (auto) 0.8 H (0.0-0.5) % Sodium 131 L 130 L (136-145) mmol/L Potassium 7.0 H* 7.2 H* (3.5-5.1) mmol/L Chloride 92 L 94 L (98-107) mmol/L Carbon Dioxide 29.1 29.0 (21.0-32.0) mmol/L Anion Gap 16.9 14.2 BUN 27.0 H 29.0 H (7.0-18.0) mg/dL Creatinine 4.72 H 4.70 H (0.55-1.02) mg/dL Est GFR ( Amer) 11 L 11 L (>=60) Est GFR (Non-Af Amer) 9 L 9 L (>=60) BUN/Creatinine Ratio 5.7 6.2 Glucose 249 H 271 H (74-106) mg/dL Calcium 9.3 9.5 (8.5-10.1) mg/dL Total Bilirubin 0.7 (0.2-1.0) mg/dL Direct Bilirubin 0.1 (0.0-0.2) mg/dL AST 34 (15-37) U/L ALT 13 L (14-59) U/L Alkaline Phosphatase 145 H (46-116) U/L Total Protein 7.5 (6.4-8.2) g/dL Albumin 2.6 L (3.4-5.0) g/dL Globulin 4.9 g/dL Albumin/Globulin Ratio 0.5 Amylase 12 L (25-115) U/L Lipase 13.0 L (16.0-77.0) U/L Imaging Data CT scan - abdomen: Radiologist's impression: ITS Impressions Abdomen/Pelvis CT 06/01/24 03:53 IMPRESSION: 1. Well distended gallbladder with 7 mm stone within gallbladder neck which may be obstructing. No appreciable acute inflammatory changes. 2. New 1.3 cm rounded opacity within medial right lung base since 01/31/2024; focal infiltrates versus mass. Consider follow-up CT chest in 1 month to document clearing versus stability. The appearance is more suggestive of a mass than infiltrates. 3. Stable splenomegaly. 4. Stable bilateral renal atrophy. Nonobstructing nephrolithiasis. 5. Fat filled small umbilical hernia without strangulation. 6. Stable multilevel compression fractures. No acute bone abnormality. Electronically authenticated by: WILFRID PROTILLO Date: 06/01/2024 04:53 ECG Data Attestation: I personally reviewed and interpreted this ECG as follows: (EKG on my interpretation shows sinus rhythm without peaked T waves) Critical Care Time Critical Care Time Critical Care Time: Yes Total Critical Care Time: 35 Attestation: Due to the high probability of sudden and clinically significant deterioration in the patient's condition he/she required the highest level of my preparedness to intervene urgently I provided critical care time including documentation time, medication orders and management, reevaluation, vital sign assessment, ordering and reviewing of lab tests, ordering and reviewing of x-ray studies, and admission orders. Aggregate critical care time is 35 minutes including only time during which I was engaged in work directly related to his/her care and did not include time spent treating other patients simultaneously. Discharge Plan Discharge Chief Complaint: Abdominal Pain Clinical Impression: Hyperkalemia, Abdominal pain, Leukocytosis Patient Disposition: [facility] Time of Disposition Decision: 05:56 Discharge Location: [facility] Condition: Fair Mode of Transportation: EMS
[2024-06-01 01:46] LABS: Basophils Absolute Auto 0.1 10^3/uL (0.0-0.1); Basophils Percent Auto 0.4 % (0.2-2.0); Eosinophils Percent Auto 0.1 % (0.9-7.0); Hematocrit 40.5 % (36.0-48.0); Hemoglobin 12.1 g/dL (12.0-16.0); Immature Granulocytes Abs Auto 0.17 10^3/uL (0.00-0.03); Immature Granulocytes Pct Auto 0.8 % (0.0-0.5); Lymphocytes Absolute Auto 1.4 10^3/uL (1.2-3.8); Lymphocytes Percent Auto 6.7 % (20.5-60.0); Mean Corpuscular HGB Conc 29.9 g/dL (29.9-35.2); Mean Corpuscular Volume 103.8 fL (81.0-99.0); Mean Platelet Volume 11.1 fL (9.5-13.5); Monocytes Absolute Auto 0.9 10^3/uL (0.3-0.8); Monocytes Percent Auto 4.4 % (1.7-12.0); Neutrophils Percent Auto 87.6 % (43.0-75.0); Platelet Count 205 10^3/uL (150-450); Red Cell Distribution Width 16.1 % (11.0-15.0); White Blood Count 20.6 10^3/uL (4.0-11.0)
[2024-06-01] MEDS: ONDANSETRON PF 4 MG/2 ML VIAL IV (01:51)
[2024-06-01] MEDS: MORPHINE SULFATE 4 MG/ML VIAL IV ×2 (01:54→07:47)
--- NOTE | 2024-06-01 02:07 | PC.NURSE ---
Pulse ox. 86-88% on room air, oxygen applied at 2 LPM/NC and pulse Ox. up to 96%.
[2024-06-01 02:16] LABS: Alanine Aminotransferase 13 U/L (14-59); Albumin Globulin Ratio 0.5; Albumin Level 2.6 g/dL (3.4-5.0); Alkaline Phosphatase 145 U/L (46-116); Amylase 12 U/L (25-115); Aspartate Amino Transferase 34 U/L (15-37); Bilirubin Direct 0.1 mg/dL (0.0-0.2); Bilirubin Total 0.7 mg/dL (0.2-1.0); Globulin 4.9 g/dL; Total Protein 7.5 g/dL (6.4-8.2)
[2024-06-01 02:55] LABS: Anion Gap 16.9; BUN Creatinine Ratio 5.7; Calcium 9.3 mg/dL (8.5-10.1); Carbon Dioxide 29.1 mmol/L (21.0-32.0); Chloride 92 mmol/L (98-107); Estimated GFR (African America 11 (>=60); Estimated GFR (Non-African Ame 9 (>=60); Glucose 249 mg/dL (74-106); Sodium 131 mmol/L (136-145)
[2024-06-01 03:30] LABS: Anion Gap 14.2; BUN Creatinine Ratio 6.2; Calcium 9.5 mg/dL (8.5-10.1); Chloride 94 mmol/L (98-107); Estimated GFR (African America 11 (>=60); Estimated GFR (Non-African Ame 9 (>=60); Glucose 271 mg/dL (74-106); Sodium 130 mmol/L (136-145)
[2024-06-01 03:31] LABS: Potassium 7.2 mmol/L (3.5-5.1)
[2024-06-01] MEDS: DEXTROSE 50 %-WATER 25 GM/50 ML SYRINGE IV (03:45)
[2024-06-01] MEDS: INSULIN REGULAR 300 UNITS/3 ML 10 UNIT IV (03:50)
--- NOTE | 2024-06-01 03:53 | CT_ITS ---
[address] [address] Patient Name: ANNA DOHERTY MRN: [facility]:[id number] date: 1950 Sex: F Assigned Patient Location: ER Current Patient Location: Accession/Order Number: [id number] Exam Date: 06/01/2024 04:12 Report Date: 06/01/2024 04:53 At the request of: CHELO VERMA Procedure: CT abdomen pelvis wo con EXAMINATION: CT abdomen pelvis wo con HISTORY: pain, WBC 20K abdominal pain COMPARISON: CT abdomen pelvis 01/31/2024 TECHNIQUE: Axial, Coronal, and Sagittal images were obtained without and/or with IV contrast as indicated by examination type. Dose reduction techniques were achieved by using automated exposure control and/or adjustment of mA and/or kV according to patient size and/or use of iterative reconstruction technique. FINDINGS: LUNG BASES: New 1.3 cm rounded opacity within medial right lung base adjacent the diaphragm. Mild atelectasis and stranding within posterior lung bases. Mild bronchiectasis. LIVER: No enlargement, atrophy, suspicious density, or significant focal lesion. BILIARY: 7 mm stone within gallbladder neck junction with cystic duct. Well distended gallbladder without appreciable inflammatory changes. PANCREAS: Marked atrophy. No lesion, fluid collection, or abnormal duct dilatation. SPLEEN: Enlarged. ADRENALS: No mass or enlargement. KIDNEYS: Moderate-marked atrophy bilaterally, left greater than right. Scattered tiny cysts and a few nonobstructing stones, largest stone is on left, 7 mm. BOWEL/MESENTERY: No visible mass, obstruction, or bowel wall thickening. AORTA/VASCULAR: No aneurysm or dissection. RETROPERITONEUM: No mass or adenopathy. LYMPH NODES: No adenopathy. URINARY BLADDER: No visible focal wall thickening, lesion, or calculus. PELVIC ORGANS: Hysterectomy. ABDOMINAL WALL: 3.5 cm fat filled umbilical hernia without strangulation. Numerous calcified and noncalcified granulomas. BONES: Stable marked compression fracture of T11 and T12. Stable mild compression fractures of T10 L2, L3. Multilevel degenerative facet arthropathy. OTHER: Negative. CT/CT abdomen pelvis wo con IMPRESSION: 1. Well distended gallbladder with 7 mm stone within gallbladder neck which may be obstructing. No appreciable acute inflammatory changes. 2. New 1.3 cm rounded opacity within medial right lung base since 01/31/2024; focal infiltrates versus mass. Consider follow-up CT chest in 1 month to document clearing versus stability. The appearance is more suggestive of a mass than infiltrates. 3. Stable splenomegaly. 4. Stable bilateral renal atrophy. Nonobstructing nephrolithiasis. 5. Fat filled small umbilical hernia without strangulation. 6. Stable multilevel compression fractures. No acute bone abnormality. Electronically authenticated by: WILFRID PORTILLO Date: 06/01/2024 04:53
--- NOTE | 2024-06-01 05:18 | PC.NURSE ---
Call placed to [facility] to initiate transfer, awaiting return call.
[2024-06-01] MEDS: LEVOFLOXACIN IN DEXTROSE 5 % 750 MG/150 ML IV.SOLN 100 MG IV (05:42)
--- NOTE | 2024-06-01 06:06 | PC.NURSE ---
Dr. Browning speaks with Dr. Bashir at [facility], awaiting bed assignment.
[2024-06-01] MEDS: SODIUM ZIRCONIUM CYCLOSILICATE 10 GM POWD.PACK PO (06:30)
--- NOTE | 2024-06-01 06:37 | PC.NURSE ---
[facility] contacted for transport, no trucks available until after 1100. ON LICENSE OF [facility] gives ETA of [phone], patient notified of bed assignment and ETA for transport.
[2024-06-01 07:07] LABS: Glucometer 335 mg/dL (74-106)
[2024-06-01 07:33] LABS: Anion Gap 16.5; BUN Creatinine Ratio 6.3; Calcium 9.1 mg/dL (8.5-10.1); Chloride 91 mmol/L (98-107); Estimated GFR (African America 10 (>=60); Estimated GFR (Non-African Ame 8 (>=60); Glucose 368 mg/dL (74-106); Sodium 129 mmol/L (136-145)
[2024-06-01 07:36] LABS: Potassium 6.5 mmol/L (3.5-5.1)
[2024-06-01] MEDS: VANCOMYCIN HCL 1,500 MG in 0.9 % SODIUM CHLORIDE 500 ML 250 MG IV (07:43)
[2024-06-01] MEDS: MIDODRINE HCL 5 MG TABLET 10 MG PO (07:47)
[2024-06-01] MEDS: 0.9 % SODIUM CHLORIDE 1,000 ML 500 ML IV (07:53)
--- NOTE | 2024-06-01 08:26 | PC.NURSE ---
06/01/24 0826 called [facility] to give report to pt nursing facility too answer and unable to leave message. Ismael Treviño RN
== END 2024-06-01 08:25 | disposition short-term general hospital (02) ==
PROVIDERS: Emergency Provider Emergency Medicine; PCP Family Medicine
DX: R10.9 Unspecified abdominal pain (principal); E87.5 Hyperkalemia; D72.829 Elevated white blood cell count, unspecified; Z99.2 Dependence on renal dialysis; E66.9 Obesity, unspecified; Z68.41 Body mass index [BMI] 40.0-44.9, adult
CPT/HCPCS: 36415; 74176; 80048; 80076; 82150; 82948; 83690; 85025; 87040; 93005; 96365; 96366; 96367; 96375; 96376; 99285; J2270; J2405; J3370

== ENCOUNTER 2024-06-17 06:35 | Day surgery (SDC) | payer MEDICARE, MEDICAID, SELFPAY ==
[2024-06-17 06:47] VITALS: BP 128/70; PULSE 86; TEMP 36.3; O2SAT 95
[2024-06-17 07:01] LABS: Glucometer 143 mg/dL (74-106)
[2024-06-17 07:51] VITALS: BP 104/66; PULSE 92; O2SAT 91
[2024-06-17] MEDS: DEXAMETHASONE SOD PHOS 10 MG/ML VIAL INJ (07:52)
[2024-06-17] MEDS: BUPIVACAINE HCL 0.25% PF 25 MG/10 ML VIAL INJ (07:52)
[2024-06-17] MEDS: LIDOCAINE HCL 2% 400 MG/20 ML MDV 5 ML INJ (07:53)
[2024-06-17] MEDS: IOHEXOL 240 MG/ML - 10 ML VIAL INJ (07:54)
--- NOTE | 2024-06-17 07:55 | P.ON_ITS ---
Date of procedure: 06/17/24 Pre-op diagnosis: Pain due to cervical radiculopathy Post-op diagnosis: same as pre-op Procedure: Procedure: Left C4-5, 6-7 transforaminal epidural steroid injection Medications: Bupivacaine 0.25% 2cc, dexamethasone 10mg The patient was seen and examined in the preoperative holding area.? Informed consent was obtained and placed on the chart.? Patient was brought to the medical procedure unit and placed in the prone position where a timeout was com pleted verifying the correct patient, procedure site, position, and planned special equipment using sterile aseptic technique.? Under direct fluoroscopic visualization a 25-gauge Quincke tipped spinal needle was advanced to the designated neural foramen where contrast dye was injected to show adequate spread.? The needle was inserted at level left C4-5. There was no evidence of vascular or adverse uptake.? Epidural spread was appreciated.? The above- mentioned injectate was then placed in a 1.5 mL aliquot preceded by negative aspiration.? The needle was removed. The needle was inserted and the procedure repeated at level left C6-7.? The surgery site was covered.? Patient was taken to the postprocedural recovery area and monitored for an appropriate length of time before found suitable for discharge in the accompaniment of a responsible adult. Anesthesia: Local Surgeon: Derek Dennis Pathology: none sent Condition: stable Disposition: no change
[2024-06-17 07:56] VITALS: BP 113/55; PULSE 95; O2SAT 92
== END 2024-06-17 08:11 | disposition home or self-care (01) ==
LOC: SURGOUT 06:35
PROVIDERS: PCP Family Medicine; Visit Provider Anesthesiology
DX: M54.12 Radiculopathy, cervical region (principal); Z79.4 Long term (current) use of insulin
CPT/HCPCS: 36415; 64479; 64480; 82948; J0665; J1100; Q9966

== ENCOUNTER 2024-06-27 14:23 | Outpatient (OUT) | payer MEDICARE, MEDICAID, SELFPAY ==
--- NOTE | 2024-06-27 14:54 | P.CN_ITS ---
Consult Note: HPI Data of Consult Patient: known to practice within the last 3 years Consult date: 04/15/24 Requesting Physician: Vikki Ferreira NP Primary Care Provider: KELLI CARLSON Consult Narrative Reason for consult: left arm pain Narrative: 74yof who presents for evaluation. worsening left arm pain, worsened after surgery in january. pain radiates from left shoulder to left fingers. on norco and lyrica, but does not help. continues in >6 weeks of provider directed home exercise, without benefit. denies adverse med side effects. Recent cervical MRI reveals [id number] degenerative changes with suspected left C4-C5 foraminal stenosis and posterior C4-C5 disc herniation as well as disc space narrowing and desiccation. 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 (ICD-10) Hyperlipidemia, unspecified ?E78.5 - Hyperlipidemia, unspecified (ICD-10) End stage renal disease ?N18.6 - End stage renal disease (ICD-10) Hypertensive chronic kidney disease with stage 5 chronic kidney disease or end stage renal disease ?I12.0 - Hypertensive chronic kidney disease with stage 5 chronic kidney disease or end stage renal disease (ICD-10) Hyperkalemia ?E87.5 - Hyperkalemia (ICD-10) Other specified complication of vascular prosthetic devices, implants and grafts, initial encounter ?T82.898A - Other specified complication of vascular prosthetic devices, implants and grafts, initial encounter (ICD-10) 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 ?N25.81 - Secondary hyperparathyroidism of renal origin (ICD-10) ?N18.6 - End stage renal disease (ICD-10) ?Z99.2 - Dependence on renal dialysis (ICD-10) Personal history of urinary calculi ?Z87.442 - Personal history of urinary calculi (ICD-10) Discitis, unspecified, site unspecified ?M46.40 - Discitis, unspecified, site unspecified (ICD-10) Osteomyelitis of vertebra, thoracic region ?M46.24 - Osteomyelitis of vertebra, thoracic region (ICD-10) Ankle fracture, left ?S82.892A - Other fracture of left lower leg, initial encounter for closed fracture (ICD-10) Dialysis patient ?Z99.2 - Dependence on renal dialysis (ICD-10) Social History Smoking status: Former smoker Meds Home Medications and Allergies Home Medications ?Medication ?Instructions ?Recorded ?Confirmed ?Type acetaminophen 500 mg capsule 500 mg PO Q6H PRN pain 05/22/23 06/17/24 History albuterol sulfate 90 mcg/actuation 2 puff inhalation Q4H PRN 05/22/23 06/17/24 History aerosol inhaler shortness of breath or wheezing allopurinol 100 mg tablet 100 mg PO DAILY 05/22/23 06/17/24 History apixaban 5 mg tablet (Eliquis) 5 mg PO BID 05/22/23 06/17/24 History biotin 5 mg capsule 5 mg PO DAILY 05/22/23 06/17/24 History cholecalciferol (vitamin D3) 25 1,000 unit PO DAILY 05/22/23 06/17/24 History mcg (1,000 unit) capsule docusate sodium 100 mg capsule 200 mg PO DAILY 05/22/23 06/17/24 History (Colace) folic acid 1 mg tablet 1 mg PO DAILY 05/22/23 06/17/24 History hyoscyamine sulfate 0.125 mg 0.125 mg sublingual Q4H PRN 05/22/23 06/01/24 History sublingual tablet dyspepsia insulin regular hum U-500 conc 500 20 unit subcut .COMPLEX 05/22/23 06/17/24 History unit/mL(3 mL) subcut pen (Humulin R U-500 (Conc) Insulin Kwikpen) levothyroxine 125 mcg tablet 225 mcg PO DAILY 05/22/23 06/17/24 History midodrine 10 mg tablet 10 mg PO .QD 05/22/23 06/17/24 History nutrition tx glu See Rx Instructions PO .QHS 05/22/23 06/17/24 History intol,lac-free,soy-fiber 0.06 gram-1.1 kcal/mL liquid (Boost Glucose Control) pregabalin 50 mg capsule 100 mg PO DAILY 05/22/23 01/31/24 History hydrocodone 5 mg-acetaminophen 325 2 tab PO Q12H PRN pain 05/23/23 06/17/24 History mg tablet montelukast 10 mg tablet 10 mg PO DAILY 05/23/23 06/01/24 History omeprazole 20 mg capsule,delayed 20 mg PO Q12H 05/23/23 06/17/24 History release polyethylene glycol See Rx Instructions miscellaneous 05/23/23 01/31/24 History .COMPLEX sennosides 15 mg tablet (Laxative 15 mg PO DAILY 05/23/23 07/21/23 History (sennosides)) sevelamer carbonate 800 mg tablet 2,400 mg PO .HS 05/23/23 06/17/24 History sevelamer carbonate 800 mg tablet 800 mg PO .COMPLEX 05/23/23 06/17/24 History sodium polystyrene sulfonate 15 120 ml PO .COMPLEX 05/23/23 06/17/24 History gram-sorbitol 20 gram/60 mL oral susp (SPS (with sorbitol)) levothyroxine 100 mcg tablet 100 mcg PO DAILY 01/31/24 06/17/24 History nortriptyline 10 mg capsule 25 mg PO DAILY 01/31/24 06/01/24 History ondansetron HCl 4 mg tablet 4 mg PO Q6H 01/31/24 06/17/24 History semaglutide 3 mg tablet (Rybelsus) mg PO DAILY 01/31/24 History sennosides 8.6 mg capsule (senna) 8.6 mg PO DAILY 01/31/24 01/31/24 History Lactobacillus rhamnosus GG 10 1 cap PO DAILY 04/15/24 06/17/24 History billion cell-inulin 200 mg capsule ([facility]) diphenhydramine HCl 25 mg capsule 25 mg PO Q8H PRN itching 04/15/24 06/17/24 History (Banophen) duloxetine 30 mg capsule,delayed 30 mg PO .HS 04/15/24 04/15/24 History release (Cymbalta) fluticasone furoate 100 1 inh inhalation DAILY 04/15/24 06/01/24 History mcg-vilanterol 25 mcg/dose inhalation powder (Breo Ellipta) fluticasone propionate 50 2 spray intranasal .hs 04/15/24 06/01/24 History mcg/actuation nasal spray,suspension glucagon HCl 1 mg solution for 1 mg IM Q20M PRN hypoglycemia 04/15/24 06/17/24 History injection (Glucagon (HCl) Emergency Kit) guaifenesin 600 mg tablet, 600 mg PO BID PRN congestion 04/15/24 04/15/24 History extended release 12 hr (Mucinex) hydrocortisone 2.5 % topical cream 1 applic AR Q6H PRN hemorrhoids 04/15/24 06/01/24 History with perineal applicator (Anusol-HC) insulin regular hum U-500 conc 500 25 unit subcut TID 04/15/24 06/17/24 History unit/mL(3 mL) subcut pen (Humulin R U-500 (Conc) Insulin Kwikpen) insulin regular hum U-500 conc 500 35 unit subcut QPM 04/15/24 06/17/24 History unit/mL(3 mL) subcut pen (Humulin R U-500 (Conc) Insulin Kwikpen) insulin regular hum U-500 conc 500 40 unit subcut QAM 04/15/24 06/17/24 History unit/mL(3 mL) subcut pen (Humulin R U-500 (Conc) Insulin Kwikpen) lidocaine HCl 4 % topical cream 1 applic topical Q8H PRN pain 04/15/24 06/17/24 History (Aspercreme (lidocaine HCl)) Allergies Allergy/AdvReac Type Severity Reaction Status Date / Time aspirin Allergy Unknown Verified 06/17/24 06:57 gentamicin Allergy cutaneous Verified 06/17/24 06:57 hypersensativity NSAIDS (Non-Steroidal Allergy Unknown Verified 06/17/24 06:57 Anti-Inflamma oxycodone Allergy Unknown Verified 06/17/24 06:57 Penicillins Allergy Unknown Verified 06/17/24 06:57 shrimp Allergy Anaphylaxis Verified 06/01/24 01:09 tetanus Allergy Unknown Uncoded 06/01/24 01:09 Exam Narrative Exam Narrative: Psych-alert and oriented x 3.? Attentive and appropriate, constitutionally normal, displays normal mood and affect per situation.? There are no obvious deficits in memory, reasoning, or intellect.? Skin-no obvious rashes, bruising, or erythema noted to the patient's area of pain.? Extremities-upper extremities are warm with minimal edema and palpable pulses. Cervical- tenderness to palpation noted in the cervical spine and paraspinal musculature.? Pain is elicited with flexion, extension, and lateral rotation of the cervical spine.? Range of motion is diminished due to pain. Facet loading maneuvers are negative.? Strength-unremarkable and within normal limits with the exception to the left biceps, triceps. Sensory-no notable sensory deficits in the bilateral upper extremities to touch or pinprick with the exception to decreased sensation to the left C6, 7 dermatomal distribution.? Coordination remains intact.? Gait remains non-antalgic. Assessment and Plan Assessment and Plan (1) Numbness and tingling of left upper extremity: (2) Left hand pain: (3) Cervical radiculopathy: (4) Cervical stenosis of spinal canal: Plan EMG NCV of BRITTNEE Lai referral for evaluation consider left C6/7 TFESI although minimal MRI findings, based on symptom presentation f/u after evaluation by Dr Lai and EMG NCV
== END 2024-06-27 14:24 | disposition home or self-care (01) ==
LOC: PM 14:23
PROVIDERS: PCP Family Medicine; Visit Provider Nurse Practitioner
DX: R20.2 Paresthesia of skin (principal); M79.642 Pain in left hand; M54.12 Radiculopathy, cervical region; M48.02 Spinal stenosis, cervical region
CPT/HCPCS: G0463

== ENCOUNTER 2024-07-18 13:04 | Outpatient (OUT) | payer MEDICARE, MEDICAID, SELFPAY ==
--- NOTE | 2024-07-18 13:29 | CT_ITS ---
[address] [address] Patient Name: ANNA DOHERTY MRN: [facility]:[id number] date: 1950 Sex: F Assigned Patient Location: CT Current Patient Location: Accession/Order Number: [id number] Exam Date: 07/18/2024 13:25 Report Date: 07/19/2024 06:26 At the request of: MATEO NUÑEZ Procedure: CT chest wo con EXAMINATION: CT chest wo con HISTORY: Lung Mass COMPARISON: CT abdomen pelvis 06/01/2024 TECHNIQUE: Axial, Coronal, and Sagittal images were created without the administration of IV contrast material. Dose reduction techniques were achieved by using automated exposure control and/or adjustment of mA and/or kV according to patient size and/or use of iterative reconstruction technique. FINDINGS: LUNGS: Clearing of previously seen 1.3 cm opacity within posterior medial right lung base. Mild bronchiectasis within posterior lung bases. Mild stranding within the left lung base favoring atelectasis or possibly infiltrates. PLEURA: No mass, effusion, or pneumothorax. VASCULATURE: No abnormality. NARESH: No mass or pathologic adenopathy. MEDIASTINUM: No mass or pathologic adenopathy. CARDIAC: No enlargement, pericardial thickening, or pericardial effusion. Coronary Artery calcifications: Coronary calcifications are moderate. AORTA: No aneurysm or dissection. CHEST WALL: No mass or axillary adenopathy BONES: T10 minimal compression fracture. T11 moderate compression fracture. T12 marked compression fracture. LIMITED ABDOMEN: No suspicious findings. Limited images of the upper abdomen. OTHER: Negative. CT/CT chest wo con IMPRESSION: 1. Clearing of previously seen rounded opacity within posterior medial right lung base suggesting this represented focal infectious infiltrates. 2. Trace amount of residual infiltrates versus atelectasis within posterior left lung base; improved. 3. Stable multilevel compression fractures of lower thoracic spine. T11 and T12 are suspected to have an acute to subacute component. Electronically authenticated by: WILFRID PORTILLO Date: 07/19/2024 06:26
== END 2024-07-18 13:05 | disposition home or self-care (01) ==
LOC: CT 13:05
PROVIDERS: PCP Family Medicine; Visit Provider Nurse Practitioner
DX: R91.8 Other nonspecific abnormal finding of lung field (principal)
CPT/HCPCS: 71250

== ENCOUNTER 2024-07-22 16:12 | Outpatient (OUT) | payer MEDICARE, MEDICAID, SELFPAY ==
--- NOTE | 2024-07-22 | XR_ITS ---
The [address] [address] Patient Name: ANNA DOHERTY MRN: [id number] date: 1950 Sex: F Assigned Patient Location: Current Patient Location: Accession/Order Number: [id number] Exam Date: 07/22/2024 16:14 Report Date: 07/24/2024 14:50 At the request of: NON-STAFF PHYSICIAN Procedure: XR wrist LT min 3V EXAM: XR wrist LT min 3V HISTORY: LEFT WRIST PAIN COMPARISON: None. TECHNIQUE: Routine views of the left wrist were obtained. FINDINGS/IMPRESSION: Background of osteopenia limits study for a subtle nondisplaced fracture. 1. There is narrowing of the ulnar lunate space with cystic changes at the articular surface of ulna as well as lunate. This finding can be correlated for possible ulnar impaction syndrome. 2. No radiographic evidence of acute fracture. 3. 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 4. There is widened scapholunate interval suggestive of possible ligamentous strain. Electronically authenticated by: JESSICA PALUMBO Date: 07/24/2024 14:50
== END 2024-07-22 16:13 | disposition home or self-care (01) ==
LOC: EC 16:13
PROVIDERS: PCP Family Medicine
DX: M25.532 Pain in left wrist (principal); M19.032 Primary osteoarthritis, left wrist
CPT/HCPCS: 73110

== ENCOUNTER 2025-01-20 05:48 | Emergency (ER) | payer MEDICARE, MEDICAID, SELFPAY ==
[2025-01-20] VITALS (205 sets, daily range): BP systolic 43–133; BP diastolic 30–95; PULSE 78–208; TEMP 36.8; O2SAT 80–100; BMI 53.3
--- NOTE | 2025-01-20 05:53 | ECG_ITS ---
The [facility] Test Date: 2025-01-20 Pat Name: ANNA DOHERTY Department: Room: - Gender: Female Care Connector: : 1950 Requested By: KELLI CARLSON Order Number: [id number] Reading MD: SANTOS JAMES Measurements Intervals Mccall Rate: 104 P: 90 VT: 174 QRS: 63 QRSD: 80 T: 59 QT: 298 QTc: 359 Interpretive Statements 1120 Sinus tachycardia 1970 with occasional ectopic premature complexes Low voltage across the precordium 8305 Short QTc interval 9150 abnormal ECG Compared to ECG 06/01/2024 01:20:59 Electronically Signed On 01-20-2025 6:52:39 EST by SANTOS JAMES
--- NOTE | 2025-01-20 05:56 | ED_ITS ---
HPI HPI - General Adult General Chief complaint: Altered Mental Status Stated complaint: AMS Time Seen by Provider: 01/20/25 05:53 Limitations: altered mental status History of Present Illness HPI narrative: This 74-year-old female with a history of end-stage renal disease on dialysis who resides in a local residential and gets her dialysis on Monday and Monday and was scheduled for today is brought to the emergency department by EMS from the extended care facility for evaluation of altered mental status and low blood pressure. According to the residential the redness, swelling and large blister on her right foot and redness to her right ankle and right lower leg is new. It is unclear exactly when this started. According to EMS she was responsive only to pain. Upon arrival she did yell out in pain when she was moved from the EMS stretcher to the bed in room 6. She is otherwise non verbal at this time. Accucheck was 116 per EMS Related Data Home Medications ?Medication ?Instructions ?Recorded ?Confirmed acetaminophen 500 mg capsule 500 mg PO Q6H PRN pain 05/22/23 06/17/24 albuterol sulfate 90 mcg/actuation 2 puff inhalation Q4H PRN 05/22/23 06/17/24 aerosol inhaler shortness of breath or wheezing allopurinol 100 mg tablet 100 mg PO DAILY 05/22/23 06/17/24 apixaban 5 mg tablet (Eliquis) 5 mg PO BID 05/22/23 06/17/24 biotin 5 mg capsule 5 mg PO DAILY 05/22/23 06/17/24 cholecalciferol (vitamin D3) 25 1,000 unit PO DAILY 05/22/23 06/17/24 mcg (1,000 unit) capsule docusate sodium 100 mg capsule 200 mg PO DAILY 05/22/23 06/17/24 (Colace) folic acid 1 mg tablet 1 mg PO DAILY 05/22/23 06/17/24 hyoscyamine sulfate 0.125 mg 0.125 mg sublingual Q4H PRN 05/22/23 06/01/24 sublingual tablet dyspepsia insulin regular hum U-500 conc 500 20 unit subcut .COMPLEX 05/22/23 06/17/24 unit/mL(3 mL) subcut pen (Humulin R U-500 (Conc) Insulin Kwikpen) levothyroxine 125 mcg tablet 225 mcg PO DAILY 05/22/23 06/17/24 midodrine 10 mg tablet 10 mg PO .QD 05/22/23 06/17/24 nutrition tx glu See Rx Instructions PO .QHS 05/22/23 06/17/24 intol,lac-free,soy-fiber 0.06 gram-1.1 kcal/mL liquid (Boost Glucose Control) pregabalin 50 mg capsule 100 mg PO DAILY 05/22/23 01/31/24 hydrocodone 5 mg-acetaminophen 325 2 tab PO Q12H PRN pain 05/23/23 06/17/24 mg tablet montelukast 10 mg tablet 10 mg PO DAILY 05/23/23 06/01/24 omeprazole 20 mg capsule,delayed 20 mg PO Q12H 05/23/23 06/17/24 release polyethylene glycol See Rx Instructions miscellaneous 05/23/23 01/31/24 .COMPLEX sennosides 15 mg tablet (Laxative 15 mg PO DAILY 05/23/23 07/21/23 (sennosides)) sevelamer carbonate 800 mg tablet 2,400 mg PO .HS 05/23/23 06/17/24 sevelamer carbonate 800 mg tablet 800 mg PO .COMPLEX 05/23/23 06/17/24 sodium polystyrene sulfonate 15 120 ml PO .COMPLEX 05/23/23 06/17/24 gram-sorbitol 20 gram/60 mL oral susp (SPS (with sorbitol)) levothyroxine 100 mcg tablet 100 mcg PO DAILY 01/31/24 06/17/24 nortriptyline 10 mg capsule 25 mg PO DAILY 01/31/24 06/01/24 ondansetron HCl 4 mg tablet 4 mg PO Q6H 01/31/24 06/17/24 semaglutide 3 mg tablet (Rybelsus) mg PO DAILY 01/31/24 sennosides 8.6 mg capsule (senna) 8.6 mg PO DAILY 01/31/24 01/31/24 Lactobacillus rhamnosus GG 10 1 cap PO DAILY 04/15/24 06/17/24 billion cell-inulin 200 mg capsule ([facility]) diphenhydramine HCl 25 mg capsule 25 mg PO Q8H PRN itching 04/15/24 06/17/24 (Banophen) duloxetine 30 mg capsule,delayed 30 mg PO .HS 04/15/24 04/15/24 release (Cymbalta) fluticasone furoate 100 1 inh inhalation DAILY 04/15/24 06/01/24 mcg-vilanterol 25 mcg/dose inhalation powder (Breo Ellipta) fluticasone propionate 50 2 spray intranasal .hs 04/15/24 06/01/24 mcg/actuation nasal spray,suspension glucagon HCl 1 mg solution for 1 mg IM Q20M PRN hypoglycemia 04/15/24 06/17/24 injection (Glucagon (HCl) Emergency Kit) guaifenesin 600 mg tablet, 600 mg PO BID PRN congestion 04/15/24 04/15/24 extended release 12 hr (Mucinex) hydrocortisone 2.5 % topical cream 1 applic [place] Q6H PRN hemorrhoids 04/15/24 06/01/24 with perineal applicator (Anusol-HC) insulin regular hum U-500 conc 500 25 unit subcut TID 04/15/24 06/17/24 unit/mL(3 mL) subcut pen (Humulin R U-500 (Conc) Insulin Kwikpen) insulin regular hum U-500 conc 500 35 unit subcut QPM 04/15/24 06/17/24 unit/mL(3 mL) subcut pen (Humulin R U-500 (Conc) Insulin Kwikpen) insulin regular hum U-500 conc 500 40 unit subcut QAM 04/15/24 06/17/24 unit/mL(3 mL) subcut pen (Humulin R U-500 (Conc) Insulin Kwikpen) lidocaine HCl 4 % topical cream 1 applic topical Q8H PRN pain 04/15/24 06/17/24 (Aspercreme (lidocaine HCl)) Allergies Allergy/AdvReac Type Severity Reaction Status Date / Time aspirin Allergy Unknown Verified 06/17/24 06:57 gentamicin Allergy cutaneous Verified 06/17/24 06:57 hypersensativity NSAIDS (Non-Steroidal Allergy Unknown Verified 06/17/24 06:57 Anti-Inflamma oxycodone Allergy Unknown Verified 06/17/24 06:57 Penicillins Allergy Unknown Verified 06/17/24 06:57 shrimp Allergy Anaphylaxis Verified 06/01/24 01:09 tetanus Allergy Unknown Uncoded 06/01/24 01:09 Opioid HPI Opioid Management Most Recent Opioid Data: Last Pain Scale 7 06/17/24 06:47 06/17/24 Review of Systems ROS Status of ROS 10 or more systems reviewed and unremark able except as noted in history and below [facility] Medical History (Updated 01/20/25 @ 06:36 by Zayra Buckner MD) 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 ?Z79.4 - 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 (ICD-10) Hyperlipidemia, unspecified ?E78.5 - Hyperlipidemia, unspecified (ICD-10) End stage renal disease ?N18.6 - End stage renal disease (ICD-10) Hypertensive chronic kidney disease with stage 5 chronic kidney disease or end stage renal disease ?I12.0 - Hypertensive chronic kidney disease with stage 5 chronic kidney disease or end stage renal disease (ICD-10) Hyperkalemia ?E87.5 - Hyperkalemia (ICD-10) Other specified complication of vascular prosthetic devices, implants and grafts, initial encounter ?T82.898A - Other specified complication of vascular prosthetic devices, implants and grafts, initial encounter (ICD-10) 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 ?N25.81 - Secondary hyperparathyroidism of renal origin (ICD-10) ?N18.6 - End stage renal disease (ICD-10) ?Z99.2 - Dependence on renal dialysis (ICD-10) Personal history of urinary calculi ?Z87.442 - Personal history of urinary calculi (ICD-10) Discitis, unspecified, site unspecified ?M46.40 - Discitis, unspecified, site unspecified (ICD-10) Osteomyelitis of vertebra, thoracic region ?M46.24 - Osteomyelitis of vertebra, thoracic region (ICD-10) Ankle fracture, left ?S82.892A - Other fracture of left lower leg, initial encounter for closed fracture (ICD-10) Dialysis patient ?Z99.2 - Dependence on renal dialysis (ICD-10) Social History Smoking status: Former smoker Exam Narrative Exam Narrative: Vital signs and Nursing Notes reviewed: Patient is afebrile, tachycardic, hypotensive with blood pressure of 62/37 and hypoxic with pulse ox of 80% upon arrival. General: Poorly responsive but awake obese female, she cries out to painful stimuli HEENT: Normocephalic atraumatic, mucous membranes are slightly dry, pupils are equal and reactive Neck: Supple Chest: Coarse breath sounds, no accessory muscle use CVS: Regular rate and rhythm S1-S2 tachycardic in the 100s, pulses are barely palpable ABD: Softly distended, Extremities: There is a large bullae on the dorsum of the right foot with local erythema of the foot and some dried blood around the great toe nailbed. The erythema extends circumferentially around the foot and ankle and a third away of the right lower leg Skin: Pale, dry Neuro: Poorly responsive, yells out to pain-specifically if anybody touches her right lower extremity Constitutional Vital Signs, click to edit/add: Last Vital Signs Pulse 113 H 01/20/25 05:57 Resp 24 H 01/20/25 05:57 BP 62/37 L 01/20/25 05:57 Pulse Ox 80 L 01/20/25 05:57 O2 Del Method Nasal Cannula 01/20/25 05:57 O2 Flow Rate 2 01/20/25 05:57 Course Vital Signs Vital signs: Vital Signs Pulse Rate 113 H 01/20/25 05:57 Respiratory Rate 24 H 01/20/25 05:57 Blood Pressure 62/37 L 01/20/25 05:57 Pulse Oximetry 80 L 01/20/25 05:57 Oxygen Delivery Method Nasal Cannula 01/20/25 05:57 Oxygen Delivery Flow Rate 2 01/20/25 05:57 Pulse Rate 113 H 01/20/25 05:57 Respiratory Rate 24 H 01/20/25 05:57 Blood Pressure 62/37 L 01/20/25 05:57 Pulse Oximetry 80 L 01/20/25 05:57 Oxygen Delivery Method Nasal Cannula 01/20/25 05:57 Oxygen Delivery Flow Rate 2 01/20/25 05:57 Medical Decision Making [facility] Narrative Medical decision making narrative: This 74-year-old female who is a dialysis patient is brought to emergency department from the [facility] care facility where she resides for evaluation of altered mental status and low blood pressure. She was scheduled to have dialys is today. EMS was called due to her low blood pressure and confusion. Upon arrival the patient was poorly responsive and hypotensive. EKG done upon arrival sinus tachycardia at 104 bpm. There were no acute findings on her EKG. Several IVs were placed and a septic workup was ordered including CBC with differential, comprehensive metabolic profile, 2 sets of blood cultures, lactic acid, COVID-19 and influenza testing, chest x-ray and x-ray of the right lower extremity where the patient appears to have cellulitis with large bullae over the dorsal aspect of her midfoot. After her initial resuscitation she was clinically improved enough to answer short questions appropriately. She states she knows she has an infection in her foot but does not know exactly how long she has had it. She was empirically treated for the cellulitis/soft tissue infection in her foot with IV Invanz and vancomycin. She was placed on a nonrebreather due to her hypoxia with clinical improvement into the 90s. Lab Data Lab results reviewed: Yes I reviewed the patient's lab results ECG Data Attestation: I personally reviewed and interpreted this ECG as follows: (Sinus tachycardia at 104 bpm, low voltage, normal axis, no acute ST segment elevation or T wave inversion) Discharge Plan Discharge Chief Complaint: Altered Mental Status Clinical Impression: Altered mental status, Septic shock, Cellulitis of right lower extremity Patient Disposition: Still a Patient Prescriptions / Home Meds: No Action acetaminophen 500 mg capsule 500 mg PO Q6H PRN (Reason: pain) allopurinol 100 mg tablet 100 mg PO DAILY albuterol sulfate 90 mcg/actuation HFA aerosol inhaler 2 puff INHALATION Q4H PRN (Reason: shortness of breath or wheezing) biotin 5 mg capsule 5 mg PO DAILY Boost Glucose Control 0.06-1.1 gram-kcal/mL liquid See Rx Instructions PO .QHS Rx Instructions: 237 ML orally QHS; cholecalciferol (vitamin D3) 25 mcg (1,000 unit) capsule 1,000 unit PO DAILY docusate sodium [Colace] 100 mg capsule 200 mg PO DAILY Eliquis 5 mg tablet 5 mg PO BID folic acid 1 mg tablet 1 mg PO DAILY Humulin R U-500 (Conc) Kwikpen 500 unit/mL (3 mL) insulin pen 20 unit SUBCUT .COMPLEX Rx Instructions: 20 units subcutaneously at bedtime; hyoscyamine sulfate 0.125 mg tablet, sublingual 0.125 mg sublingual Q4H PRN (Reason: dyspepsia) levothyroxine 125 mcg tablet 225 mcg PO DAILY pregabalin 50 mg capsule 100 mg PO DAILY midodrine 10 mg tablet 10 mg PO .QD Rx Instructions: 1 TAB M-W-F DIALYSIS montelukast 10 mg tablet 10 mg PO DAILY hydrocodone-acetaminophen 5-325 mg tablet 2 tab PO Q12H PRN (Reason: pain) omeprazole 20 mg capsule,delayed release(DR/EC) 20 mg PO Q12H polyethylene glycol Powder See Rx Instructions miscellaneous .COMPLEX Rx Instructions: 17 GRAMS QD as directed; Laxative (sennosides) 15 mg tablet 15 mg PO DAILY sevelamer carbonate 800 mg tablet 800 mg PO .COMPLEX Rx Instructions: 800 mg orally bedtime; sevelamer carbonate 800 mg tablet 2,400 mg PO .HS SPS (with sorbitol) 15-20 gram/60 mL suspension 120 ml PO .COMPLEX Rx Instructions: 120 mL orally every 24hrs as needed for missed dialysis; nortriptyline 10 mg capsule 25 mg PO DAILY ondansetron HCl 4 mg tablet 4 mg PO Q6H levothyroxine 100 mcg tablet 100 mcg PO DAILY Rybelsus 3 mg tablet PO DAILY senna 8.6 mg capsule 8.6 mg PO DAILY fluticasone propionate 50 mcg/actuation spray,suspension 2 spray INTRANASAL .hs lidocaine HCl [Aspercreme (lidocaine HCl)] 4 % cream 1 applic topical Q8H PRN (Reason: pain) diphenhydramine HCl [Banophen] 25 mg capsule 25 mg PO Q8H PRN (Reason: itching) fluticasone furoate-vilanterol [Breo Ellipta] 100-25 mcg/dose blister with device 1 inh inhalation DAILY [facility] 10 billion cell -200 mg capsule 1 cap PO DAILY glucagon HCl [Glucagon (HCl) Emergency Kit] 1 mg recon soln 1 mg IM Q20M PRN (Reason: hypoglycemia) Rx Instructions: until target blood sugar attained hydrocortisone [Anusol-HC] 2.5 % cream with perineal applicator 1 applic NH Q6H PRN (Reason: hemorrhoids) guaifenesin [Mucinex] 600 mg tablet extended release 12hr 600 mg PO BID PRN (Reason: congestion) Humulin R U-500 (Conc) Kwikpen 500 unit/mL (3 mL) insulin pen 35 unit subcut QPM Rx Instructions: SUPPER Humulin R U-500 (Conc) Kwikpen 500 unit/mL (3 mL) insulin pen 40 unit subcut QAM Humulin R U-500 (Conc) Kwikpen 500 unit/mL (3 mL) insulin pen 25 unit subcut TID Rx Instructions: SLIDING SCALE duloxetine [Cymbalta] 30 mg capsule,delayed release(DR/EC) 30 mg PO . Print Language: Setswana Referrals: KELLI CARLSON [Primary Care Provider] - 1 week
[2025-01-20] MEDS: 0.9 % SODIUM CHLORIDE 1,000 ML 1000 ML IV (06:30)
[2025-01-20] MEDS: ERTAPENEM SODIUM 1 GM in 0.9 % SODIUM CHLORIDE 50 ML IV (06:30)
[2025-01-20] MEDS: VANCOMYCIN HCL 1,500 MG in 0.9 % SODIUM CHLORIDE 500 ML 250 MG IV (06:38)
[2025-01-20 06:50] LABS: Hemoglobin 9.7 g/dL (12.0-16.0); Mean Corpuscular HGB Conc 30.3 g/dL (29.9-35.2); Mean Corpuscular Hemoglobin 33.4 pg (26.7-34.0); Mean Corpuscular Volume 110.3 fL (81.0-99.0); Mean Platelet Volume 11.8 fL (9.5-13.5); Platelet Count 204 10^3/uL (150-450); Red Cell Distribution Width 14.4 % (11.0-15.0)
--- NOTE | 2025-01-20 06:51 | PC.NURSE ---
IVs x 2 to the R arm. Unable to draw labs from the starts even though the cannula is clearly in the vein. Lab to draw. Pt is limited in venous access to to obesity and to a L FA AVF.
[2025-01-20 07:00] LABS: White Blood Count 33.4 10^3/uL (4.0-11.0)
[2025-01-20 07:03] LABS: Influenza Virus A Antigen Negative; Influenza Virus B Antigen Negative; Internal Control Within Normal Limits; SARS-CoV-2 Ag NEGATIVE (NEGATIVE)
[2025-01-20 07:04] LABS: INR 1.21; Prothrombin Time 12.6 sec (9.0-11.6)
[2025-01-20 07:04] LABS: Internal Control Within Normal Limits
[2025-01-20 07:10] LABS: Alanine Aminotransferase 11 U/L (14-59); Albumin Globulin Ratio 0.4; Albumin Level 1.8 g/dL (3.4-5.0); Alkaline Phosphatase 163 U/L (46-116); Anion Gap 16.9; Aspartate Amino Transferase 17 U/L (15-37); BUN Creatinine Ratio 6.4; Bilirubin Total 0.6 mg/dL (0.2-1.0); Calcium 9.6 mg/dL (8.5-10.1); Carbon Dioxide 28.4 mmol/L (21.0-32.0); Chloride 97 mmol/L (98-107); Estimated GFR (African America 5 (>=60 mL/min/1.73m^2); Estimated GFR (Non-African Ame 4 (>=60 mL/min/1.73m^2); Globulin 4.8 g/dL; Glucose 107 mg/dL (74-106); Potassium 5.3 mmol/L (3.5-5.1); Sodium 137 mmol/L (136-145); Total Protein 6.6 g/dL (6.4-8.2); Troponin I High Sensitivity 18.2 pg/mL (4.0-51.3)
[2025-01-20 07:13] LABS: Lactate/Lactic Acid 1.9 mmol/L (0.4-2.0)
[2025-01-20] MEDS: NOREPINEPHRINE BITARTRATE/D5W 4 MG/250 ML PREMIX 30 MG IV ×2 (07:16→15:35)
[2025-01-20 07:22] LABS: Anisocytosis 1+; Lymphocytes Absolute Manual 1.67 10^3/uL (1.20-3.80); Macrocytosis 1+; Segmented Neut Absolute Manual 29.72 10^3/uL (1.4-6.5)
[2025-01-20] MEDS: MIDODRINE HCL 5 MG TABLET 10 MG PO ×2 (07:27→14:26)
--- NOTE | 2025-01-20 09:42 | SWNOTE1 ---
Pt is from [facility]. Myra at [facility] reached out and SW advised she is still down in ED awaiting transfer to higher level of care.
--- NOTE | 2025-01-20 10:53 | ECG_ITS ---
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
[2025-01-20 10:59] LABS: Glucometer 217 mg/dL (74-106)
[2025-01-20] MEDS: 0.9 % SODIUM CHLORIDE 1,000 ML 500 ML IV (12:30)
[2025-01-20 16:49] LABS: Lactate/Lactic Acid 1.3 mmol/L (0.4-2.0)
[2025-01-20 18:55] LABS: Glucometer 327 mg/dL (74-106)
--- NOTE | 2025-01-20 19:46 | PC.NURSE ---
Large intact blister dorsum of right foot. area around rd a flavia. Bilateral pulses doppled. Necrosis noted to area around nail bed right great toe
[2025-01-20 21:00] LABS: Hematocrit 35.5 % (36.0-48.0); Hemoglobin 10.6 g/dL (12.0-16.0); Mean Corpuscular HGB Conc 29.9 g/dL (29.9-35.2); Mean Corpuscular Hemoglobin 33.7 pg (26.7-34.0); Mean Corpuscular Volume 112.7 fL (81.0-99.0); Mean Platelet Volume 11.6 fL (9.5-13.5); Platelet Count 251 10^3/uL (150-450); Red Blood Count 3.15 10^6/uL (4.20-5.40); Red Cell Distribution Width 14.5 % (11.0-15.0)
--- NOTE | 2025-01-20 21:13 | ED_ITS ---
HPI HPI - General Adult General Chief complaint: Altered Mental Status Stated complaint: AMS Time Seen by Provider: 01/20/25 05:53 Source: caregiver, EMR and other Source information: EMS crew and ECF Nurse Mode of arrival: ambulance Limitations: altered mental status Limitations comment: responsive to pain History of Present Illness HPI narrative: This 74-year-old female was signed out to me at shift change. I had seen her initially upon her arrival for altered mental status. She was found to be septic with a right lower extremity cellulitis and large bullae over her right foot. She received IV fluids, Invanz and vancomycin. She has chronic renal insufficiency and was scheduled for her dialysis earlier today but she did not receive dialysis due to her acute illness. She was placed on Levophed and received several doses of midodrine during the day. Labs are reviewed. Her white count is markedly elevated at 33. Creatinine is elevated greater than 9. Potassium is elevated at 5.4. Her initial lactic acid was 1.9 and it came down to 1.3 after fluids and resuscitation efforts. Troponin is normal. We were awaiting transfer arrangements at the start of my 7 PM shift. The patient was seen and evaluated. She is now much more alert. She is able to answer questions appropriately and states that her right foot has been becoming red and swollen over the course of the past several days. She does not recall any injury. Related Data Home Medications ?Medication ?Instructions ?Recorded ?Confirmed acetaminophen 500 mg capsule 500 mg PO Q6H PRN pain 05/22/23 06/17/24 albuterol sulfate 90 mcg/actuation 2 puff inhalation Q4H PRN 05/22/23 06/17/24 aerosol inhaler shortness of breath or wheezing allopurinol 100 mg tablet 100 mg PO DAILY 05/22/23 06/17/24 apixaban 5 mg tablet (Eliquis) 5 mg PO BID 05/22/23 06/17/24 biotin 5 mg capsule 5 mg PO DAILY 05/22/23 06/17/24 cholecalciferol (vitamin D3) 25 1,000 unit PO DAILY 05/22/23 06/17/24 mcg (1,000 unit) capsule docusate sodium 100 mg capsule 200 mg PO DAILY 05/22/23 06/17/24 (Colace) folic acid 1 mg tablet 1 mg PO DAILY 05/22/23 06/17/24 hyoscyamine sulfate 0.125 mg 0.125 mg sublingual Q4H PRN 05/22/23 06/01/24 sublingual tablet dyspepsia insulin regular hum U-500 conc 500 20 unit subcut .COMPLEX 05/22/23 06/17/24 unit/mL(3 mL) subcut pen (Humulin R U-500 (Conc) Insulin Kwikpen) levothyroxine 125 mcg tablet 225 mcg PO DAILY 05/22/23 06/17/24 midodrine 10 mg tablet 10 mg PO .QD 05/22/23 06/17/24 nutrition tx glu See Rx Instructions PO .QHS 05/22/23 06/17/24 intol,lac-free,soy-fiber 0.06 gram-1.1 kcal/mL liquid (Boost Glucose Control) pregabalin 50 mg capsule 100 mg PO DAILY 05/22/23 01/31/24 hydrocodone 5 mg-acetaminophen 325 2 tab PO Q12H PRN pain 05/23/23 06/17/24 mg tablet montelukast 10 mg tablet 10 mg PO DAILY 05/23/23 06/01/24 omeprazole 20 mg capsule,delayed 20 mg PO Q12H 05/23/23 06/17/24 release polyethylene glycol See Rx Instructions miscellaneous 05/23/23 01/31/24 .COMPLEX sennosides 15 mg tablet (Laxative 15 mg PO DAILY 05/23/23 07/21/23 (sennosides)) sevelamer carbonate 800 mg tablet 2,400 mg PO .HS 05/23/23 06/17/24 sevelamer carbonate 800 mg tablet 800 mg PO .COMPLEX 05/23/23 06/17/24 sodium polystyrene sulfonate 15 120 ml PO .COMPLEX 05/23/23 06/17/24 gram-sorbitol 20 gram/60 mL oral susp (SPS (with sorbitol)) levothyroxine 100 mcg tablet 100 mcg PO DAILY 01/31/24 06/17/24 nortriptyline 10 mg capsule 25 mg PO DAILY 01/31/24 06/01/24 ondansetron HCl 4 mg tablet 4 mg PO Q6H 01/31/24 06/17/24 semaglutide 3 mg tablet (Rybelsus) mg PO DAILY 01/31/24 sennosides 8.6 mg capsule (senna) 8.6 mg PO DAILY 01/31/24 01/31/24 Lactobacillus rhamnosus GG 10 1 cap PO DAILY 04/15/24 06/17/24 billion cell-inulin 200 mg capsule ([facility] [employer] [facility]) diphenhydramine HCl 25 mg capsule 25 mg PO Q8H PRN itching 04/15/24 06/17/24 (Banophen) duloxetine 30 mg capsule,delayed 30 mg PO .HS 04/15/24 04/15/24 release (Cymbalta) fluticasone furoate 100 1 inh inhalation DAILY 04/15/24 06/01/24 mcg-vilanterol 25 mcg/dose inhalation powder (Breo Ellipta) fluticasone propionate 50 2 spray intranasal .hs 04/15/24 06/01/24 mcg/actuation nasal spray,suspension glucagon HCl 1 mg solution for 1 mg IM Q20M PRN hypoglycemia 04/15/24 06/17/24 injection (Glucagon (HCl) Emergency Kit) guaifenesin 600 mg tablet, 600 mg PO BID PRN congestion 04/15/24 04/15/24 extended release 12 hr (Mucinex) hydrocortisone 2.5 % topical cream 1 applic VA Q6H PRN hemorrhoids 04/15/24 06/01/24 with perineal applicator (Anusol-HC) insulin regular hum U-500 conc 500 25 unit subcut TID 04/15/24 06/17/24 unit/mL(3 mL) subcut pen (Humulin R U-500 (Conc) Insulin Kwikpen) insulin regular hum U-500 conc 500 35 unit subcut QPM 04/15/24 06/17/24 unit/mL(3 mL) subcut pen (Humulin R U-500 (Conc) Insulin Kwikpen) insulin regular hum U-500 conc 500 40 unit subcut QAM 04/15/24 06/17/24 unit/mL(3 mL) subcut pen (Humulin R U-500 (Conc) Insulin Kwikpen) lidocaine HCl 4 % topical cream 1 applic topical Q8H PRN pain 04/15/24 06/17/24 (Aspercreme (lidocaine HCl)) ammonium lactate 12 % lotion 1 applic topical DAILY 01/20/25 01/20/25 (AmLactin) fluticasone furoate 100 1 inh inhalation DAILY 01/20/25 01/20/25 mcg-vilanterol 25 mcg/dose inhalation powder (Breo Ellipta) Allergies Allergy/AdvReac Type Severity Reaction Status Date / Time aspirin Allergy Unknown Verified 06/17/24 06:57 gentamicin Allergy cutaneous Verified 06/17/24 06:57 hypersensativity NSAIDS (Non-Steroidal Allergy Unknown Verified 06/17/24 06:57 Anti-Inflamma oxycodone Allergy Unknown Verified 06/17/24 06:57 Penicillins Allergy Unknown Verified 06/17/24 06:57 shrimp Allergy Anaphylaxis Verified 06/01/24 01:09 tetanus Allergy Unknown Uncoded 06/01/24 01:09 Opioid HPI Opioid Management Most Recent Opioid Data: Last Pain Scale 7 06/17/24 06:47 06/17/24 [facility] Medical History (Updated 01/20/25 @ 20:34 by Zayra Buckner MD) longterm (current) use of insulin ?Z79.4 - longterm (current) use of insulin (ICD-10) Hyperlipidemia, unspecified ?E78.5 - Hyperlipidemia, unspecified (ICD-10) End stage renal disease ?N18.6 - End stage renal disease (ICD-10) Hypertensive chronic kidney disease with stage 5 chronic kidney disease or end stage renal disease ?I12.0 - Hypertensive chronic kidney disease with stage 5 chronic kidney disease or end stage renal disease (ICD-10) Hyperkalemia ?E87.5 - Hyperkalemia (ICD-10) Other specified complication of vascular prosthetic devices, implants and grafts, initial encounter ?T82.898A - Other specified complication of vascular prosthetic devices, implants and grafts, initial encounter (ICD-10) 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 ?N25.81 - Secondary hyperparathyroidism of renal origin (ICD-10) ?N18.6 - End stage renal disease (ICD-10) ?Z99.2 - Dependence on renal dialysis (ICD-10) Personal history of urinary calculi ?Z87.442 - Personal history of urinary calculi (ICD-10) Discitis, unspecified, site unspecified ?M46.40 - Discitis, unspecified, site unspecified (ICD-10) Osteomyelitis of vertebra, thoracic region ?M46.24 - Osteomyelitis of vertebra, thoracic region (ICD-10) Ankle fracture, left ?S82.892A - Other fracture of left lower leg, initial encounter for closed fracture (ICD-10) Dialysis patient ?Z99.2 - Dependence on renal dialysis (ICD-10) Social History Smoking status: Former smoker Exam Constitutional Vital Signs, click to edit/add: Last Vital Signs Temp 98.2 F 01/20/25 10:56 Pulse 91 H 01/20/25 19:40 Resp 18 01/20/25 19:40 BP 124/48 L 01/20/25 19:30 Pulse Ox 90 L 01/20/25 19:40 O2 Del Method Nasal Cannula 01/20/25 10:56 O2 Flow Rate 2 01/20/25 10:56 Course Vital Signs Vital signs: Vital Signs Pulse Rate 113 H 01/20/25 05:57 Respiratory Rate 24 H 01/20/25 05:57 Blood Pressure 62/37 L 01/20/25 05:57 Pulse Oximetry 80 L 01/20/25 05:57 Oxygen Delivery Method Nasal Cannula 01/20/25 05:57 Oxygen Delivery Flow Rate 2 01/20/25 05:57 Temperature 98.2 F 01/20/25 10:56 Pulse Rate 91 H 01/20/25 19:40 Respiratory Rate 18 01/20/25 19:40 Blood Pressure 124/48 L 01/20/25 19:30 Pulse Oximetry 90 L 01/20/25 19:40 Oxygen Delivery Method Nasal Cannula 01/20/25 10:56 Oxygen Delivery Flow Rate 2 01/20/25 10:56 Medical Decision Making MDM Narrative Medical decision making narrative: Patient was accepted for transfer to [facility] ICU by Dr. Hoff. She is agreeable to this transfer. Medical Records Medical records reviewed: Yes I reviewed the patient's medical records Lab Data Labs: Lab Results 01/20/25 01/20/25 01/20/25 Range/Units 06:25 06:45 10:57 WBC 33.4 H* (4.0-11.0) 10^3/uL RBC 2.90 L (4.20-5.40) 10^6/uL Hgb 9.7 L (12.0-16.0) g/dL Hct 32.0 L (36.0-48.0) % MCV 110.3 H (81.0-99.0) fL MCH 33.4 (26.7-34.0) pg MCHC 30.3 (29.9-35.2) g/dL RDW 14.4 (11.0-15.0) % Plt Count 204 (150-450) 10^3/uL MPV 11.8 (9.5-13.5) fL Seg Neuts % (Manual) 89.0 H (43.0-75.0) Lymphocytes % (Manual) 5.0 L (20.5-60.0) % Monocytes % (Manual) 6.0 (1.7-12.0) % Eosinophils % (Manual) 0.0 L (0.9-7.0) % Basophils % (Manual) 0.0 L (0.2-2.0) % Neutrophils # (Manual) 29.72 H (1.4-6.5) 10^3/uL Lymphocytes # (Manual) 1.67 (1.20-3.80) 10^3/uL Monocytes # (Manual) 2.00 H (0.30-0.80) 10^3/uL Eosinophils # (Manual) 0.00 (0.00-0.70) 10^3/uL Basophils # (Manual) 0.00 (0.00-0.10) 10^3/uL Anisocytosis 1+ Macrocytosis 1+ PT 12.6 H (9.0-11.6) sec INR 1.21 Sodium 137 (136-145) mmol/L Potassium 5.3 H (3.5-5.1) mmol/L Chloride 97 L (98-107) mmol/L Carbon Dioxide 28.4 (21.0-32.0) mmol/L Anion Gap 16.9 BUN 59.0 H (7.0-18.0) mg/dL Creatinine 9.15 H* (0.55-1.02) mg/dL Est GFR ( Amer) 5 L (>=60 mL/min/1.73m^2) Est GFR (Non-Af Amer) 4 L (>=60 mL/min/1.73m^2) BUN/Creatinine Ratio 6.4 Glucose 107 H (74-106) mg/dL Lactate 1.9 (0.4-2.0) mmol/L Calcium 9.6 (8.5-10.1) mg/dL Total Bilirubin 0.6 (0.2-1.0) mg/dL AST 17 (15-37) U/L ALT 11 L (14-59) U/L Alkaline Phosphatase 163 H (46-116) U/L Troponin I High Sens 18.2 (4.0-51.3) pg/mL Total Protein 6.6 (6.4-8.2) g/dL Albumin 1.8 L (3.4-5.0) g/dL Globulin 4.8 g/dL Albumin/Globulin Ratio 0.4 Influenza Type A Ag Negative Influenza Type B Ag Negative SARS-CoV-2 Ag (CV2AG) Negative (NEGATIVE) POC Glucose 217 H (74-106) mg/dL 01/20/25 01/20/25 Range/Units 16:25 18:52 WBC (4.0-11.0) 10^3/uL RBC (4.20-5.40) 10^6/uL Hgb (12.0-16.0) g/dL Hct (36.0-48.0) % MCV (81.0-99.0) fL MCH (26.7-34.0) pg MCHC (29.9-35.2) g/dL RDW (11.0-15.0) % Plt Count (150-450) 10^3/uL MPV (9.5-13.5) fL Seg Neuts % (Manual) (43.0-75.0) Lymphocytes % (Manual) (20.5-60.0) % Monocytes % (Manual) (1.7-12.0) % Eosinophils % (Manual) (0.9-7.0) % Basophils % (Manual) (0.2-2.0) % Neutrophils # (Manual) (1.4-6.5) 10^3/uL Lymphocytes # (Manual) (1.20-3.80) 10^3/uL Monocytes # (Manual) (0.30-0.80) 10^3/uL Eosinophils # (Manual) (0.00-0.70) 10^3/uL Basophils # (Manual) (0.00-0.10) 10^3/uL Anisocytosis Macrocytosis PT (9.0-11.6) sec INR Sodium (136-145) mmol/L Potassium (3.5-5.1) mmol/L Chloride (98-107) mmol/L Carbon Dioxide (21.0-32.0) mmol/L Anion Gap BUN (7.0-18.0) mg/dL Creatinine (0.55-1.02) mg/dL Est GFR ( Amer) (>=60 mL/min/1.73m^2) Est GFR (Non-Af Amer) (>=60 mL/min/1.73m^2) BUN/Creatinine Ratio Glucose (74-106) mg/dL Lactate 1.3 (0.4-2.0) mmol/L Calcium (8.5-10.1) mg/dL Total Bilirubin (0.2-1.0) mg/dL AST (15-37) U/L ALT (14-59) U/L Alkaline Phosphatase (46-116) U/L Troponin I High Sens (4.0-51.3) pg/mL Total Protein (6.4-8.2) g/dL Albumin (3.4-5.0) g/dL Globulin g/dL Albumin/Globulin Ratio Influenza Type A Ag Influenza Type B Ag SARS-CoV-2 Ag (CV2AG) (NEGATIVE) POC Glucose 327 H (74-106) mg/dL Discharge Plan Discharge Chief Complaint: Altered Mental Status Clinical Impression: Altered mental status, Septic shock, Cellulitis of right lower extremity, Chronic renal disease Patient Disposition: General Acute Hospital Time of Disposition Decision: 20:34 Discharge Location: [facility]
[2025-01-20 21:19] LABS: Anion Gap 19.5; BUN Creatinine Ratio 6.8; Calcium 9.4 mg/dL (8.5-10.1); Carbon Dioxide 24.8 mmol/L (21.0-32.0); Chloride 95 mmol/L (98-107); Estimated GFR (African America 5 (>=60 mL/min/1.73m^2); Estimated GFR (Non-African Ame 4 (>=60 mL/min/1.73m^2); Glucose 411 mg/dL (74-106); Sodium 133 mmol/L (136-145)
[2025-01-20 21:21] LABS: Lactate/Lactic Acid 2.3 mmol/L (0.4-2.0); Potassium 6.3 mmol/L (3.5-5.1)
[2025-01-20 21:22] LABS: White Blood Count 37.8 10^3/uL (4.0-11.0)
[2025-01-20 21:23] LABS: Lymphocytes Absolute Manual 2.64 10^3/uL (1.20-3.80); Monocytes Absolute Manual 0.75 10^3/uL (0.30-0.80); Segmented Neut Absolute Manual 34.77 10^3/uL (1.4-6.5)
[2025-01-20] MEDS: SODIUM BICARBONATE 8.4 % 50 MEQ/50 ML SYRINGE IV (21:40)
[2025-01-20] MEDS: INSULIN REGULAR, HUMAN (100 UNIT/ML) 10 ML MDV 10 UNIT IV (21:40)
[2025-01-20] MEDS: DEXTROSE 50 %-WATER 25 GM/50 ML SYRINGE IV (21:40)
[2025-01-20 22:00] LABS: A. calcoaceticus-baumannii Cpx NOT DETECTED (NOT DETECTE); Bacteroides fragilis NOT DETECTED (NOT DETECTE); Candida albicans NOT DETECTED (NOT DETECTE); Candida auris NOT DETECTED (NOT DETECTE); Candida glabrata NOT DETECTED (NOT DETECTE); Candida krusei NOT DETECTED (NOT DETECTE); Candida parapsilosis NOT DETECTED (NOT DETECTE); Candida tropicalis NOT DETECTED (NOT DETECTE); Cryptococcus neoformans/gattii NOT DETECTED (NOT DETECTE); Enterobacter cloacae complex NOT DETECTED (NOT DETECTE); Enterobacterales NOT DETECTED (NOT DETECTE); Enterococcus faecalis NOT DETECTED (NOT DETECTE); Enterococcus faecium NOT DETECTED (NOT DETECTE); Haemophilus influenzae NOT DETECTED (NOT DETECTE); Klebsiella aerogenes NOT DETECTED (NOT DETECTE); Klebsiella pneumoniae group NOT DETECTED (NOT DETECTE); Listeria monocytogenes NOT DETECTED (NOT DETECTE); Neisseria meningitidis NOT DETECTED (NOT DETECTE); Proteus spp. NOT DETECTED (NOT DETECTE); Pseudomonas aeruginosa NOT DETECTED (NOT DETECTE); Salmonella spp. NOT DETECTED (NOT DETECTE); Serratia marcescens NOT DETECTED (NOT DETECTE); Staphylococcus epidermidis NOT DETECTED (NOT DETECTE); Staphylococcus lugdunensis NOT DETECTED (NOT DETECTE); Stenotrophomonas maltophilia NOT DETECTED (NOT DETECTE); Streptococcus agalactiae NOT DETECTED (NOT DETECTE); Streptococcus pneumoniae NOT DETECTED (NOT DETECTE); Streptococcus pyogenes NOT DETECTED (NOT DETECTE); Streptococcus spp. NOT DETECTED (NOT DETECTE)
[2025-01-20] MEDS: FENTANYL CITRATE/PF 100 MCG/2 ML VIAL 25 MCG IV (22:36)
[2025-01-20 23:38] LABS: mecA/C and MREJ (MRSA) NOT DETECTED (NOT DETECTE)
[2025-01-20 23:39] LABS: Source BLOOD
[2025-01-20 23:41] LABS: Staphylococcus spp. DETECTED (NOT DETECTE)
--- NOTE | 2025-01-21 09:28 | SWNOTE1 ---
Myra at [facility] reached out to see where pt was transferred to. DANGELO advised [facility] for continuity of care as pt was from [facility].
== END 2025-01-20 22:42 | disposition short-term general hospital (02) ==
PROVIDERS: Emergency Medicine; Emergency Provider Emergency Medicine; PCP Family Medicine
DX: A41.9 Sepsis, unspecified organism (principal); L03.115 Cellulitis of right lower limb; E87.5 Hyperkalemia; Z99.2 Dependence on renal dialysis; Z87.891 Personal history of nicotine dependence; R65.21 Severe sepsis with septic shock; N18.6 End stage renal disease; I95.9 Hypotension, unspecified; R09.02 Hypoxemia
CPT/HCPCS: 36415; 71045; 73630; 80048; 80053; 83605; 84484; 85007; 85027; 85610; 87040; 87150; 87804; 87811; 93005; 96365; 96366; 96368; 96375; 99285; J1335; J1817; J3010; J3370

== ENCOUNTER 2025-02-13 13:04 | Outpatient (OUT) | payer MEDICARE, MEDICAID, SELFPAY | END 2025-02-13 13:05 | disposition home or self-care (01) | LOC: WC 13:04 | PROVIDERS: PCP Family Medicine; Visit Provider Physician Assistant | DX: E11.621 Type 2 diabetes mellitus with foot ulcer (principal); L97.413 Non-pressure chronic ulcer of right heel and midfoot with necrosis of muscle; L89.616 Pressure-induced deep tissue damage of right heel | CPT/HCPCS: G0463 ==

== ENCOUNTER 2025-02-13 14:56 | Emergency (ER) | payer MEDICARE, MEDICAID, SELFPAY ==
[2025-02-13] VITALS (16 sets, daily range): BP systolic 86–118; BP diastolic 38–60; PULSE 8–96; TEMP 36.9; O2SAT 90–99; BMI 40.9
--- NOTE | 2025-02-13 15:11 | ED.GENADUL1 ---
HPI HPI - General Adult General Chief complaint: Wound/Laceration Stated complaint: WOUND - FOOT Time Seen by Provider: 02/13/25 15:03 Source: patient Mode of arrival: ambulance Limitations: no limitations History of Present Illness HPI narrative: Patient is a 74-year-old female with a history of chronic kidney disease, on dialysis who presents to the emergency department from wound care to be transferred back to [facility] for wet gangrene of the right foot. Patient had surgery last week on her right femur for fracture. Patient was transferred from this facility for cellulitis on 01/20/2025. She was septic and on Levophed and antibiotics. She had cellulitis of the right lower extremity and documentation at that time shows that she had a blister to the dorsum of the right foot. Patient has no idea when the wound may have started to her right foot as she cannot see her foot. She was released from the hospital 8 days ago and has been receiving Ancef at dialysis. She receives dialysis Monday/Monday/Monday. The area of surgical incision to the right distal femur is fairly well-healing with no drainage or dehiscence. She has chronic paresthesia to the feet. She went to her first wound care appointment today and the wound care provider noticed wet gangrene of the right foot. Patient has not had any fevers or vomiting. They attempted to send her back to [facility] where she had her femur surgery, but they were unable to transport her directly to [place] so she was sent to this emergency department. Related Data Home Medications ?Medication ?Instructions ?Recorded ?Confirmed acetaminophen 500 mg capsule 500 mg PO Q6H PRN pain 05/22/23 06/17/24 albuterol sulfate 90 mcg/actuation 2 puff inhalation Q4H PRN 05/22/23 06/17/24 aerosol inhaler shortness of breath or wheezing allopurinol 100 mg tablet 100 mg PO DAILY 05/22/23 06/17/24 apixaban 5 mg tablet (Eliquis) 5 mg PO BID 05/22/23 06/17/24 biotin 5 mg capsule 5 mg PO DAILY 05/22/23 06/17/24 cholecalciferol (vitamin D3) 25 1,000 unit PO DAILY 05/22/23 06/17/24 mcg (1,000 unit) capsule docusate sodium 100 mg capsule 200 mg PO DAILY 05/22/23 06/17/24 (Colace) folic acid 1 mg tablet 1 mg PO DAILY 05/22/23 06/17/24 hyoscyamine sulfate 0.125 mg 0.125 mg sublingual Q4H PRN 05/22/23 06/01/24 sublingual tablet dyspepsia insulin regular hum U-500 conc 500 20 unit subcut .COMPLEX 05/22/23 06/17/24 unit/mL(3 mL) subcut pen (Humulin R U-500 (Conc) Insulin Kwikpen) levothyroxine 125 mcg tablet 225 mcg PO DAILY 05/22/23 06/17/24 midodrine 10 mg tablet 10 mg PO .QD 05/22/23 06/17/24 nutrition tx glu See Rx Instructions PO .QHS 05/22/23 06/17/24 intol,lac-free,soy-fiber 0.06 gram-1.1 kcal/mL liquid (Boost Glucose Control) pregabalin 50 mg capsule 100 mg PO DAILY 05/22/23 01/31/24 hydrocodone 5 mg-acetaminophen 325 2 tab PO Q12H PRN pain 05/23/23 06/17/24 mg tablet montelukast 10 mg tablet 10 mg PO DAILY 05/23/23 06/01/24 omeprazole 20 mg capsule,delayed 20 mg PO Q12H 05/23/23 06/17/24 release polyethylene glycol See Rx Instructions miscellaneous 05/23/23 01/31/24 .COMPLEX sennosides 15 mg tablet (Laxative 15 mg PO DAILY 05/23/23 07/21/23 (sennosides)) sevelamer carbonate 800 mg tablet 2,400 mg PO .HS 05/23/23 06/17/24 sevelamer carbonate 800 mg tablet 800 mg PO .COMPLEX 05/23/23 06/17/24 sodium polystyrene sulfonate 15 120 ml PO .COMPLEX 05/23/23 06/17/24 gram-sorbitol 20 gram/60 mL oral susp (SPS (with sorbitol)) levothyroxine 100 mcg tablet 100 mcg PO DAILY 01/31/24 06/17/24 nortriptyline 10 mg capsule 25 mg PO DAILY 01/31/24 06/01/24 ondansetron HCl 4 mg tablet 4 mg PO Q6H 01/31/24 06/17/24 semaglutide 3 mg tablet (Rybelsus) mg PO DAILY 01/31/24 sennosides 8.6 mg capsule (senna) 8.6 mg PO DAILY 01/31/24 01/31/24 Lactobacillus rhamnosus GG 10 1 cap PO DAILY 04/15/24 06/17/24 billion cell-inulin 200 mg capsule ([facility] [employer] [facility]) diphenhydramine HCl 25 mg capsule 25 mg PO Q8H PRN itching 04/15/24 06/17/24 (Banophen) duloxetine 30 mg capsule,delayed 30 mg PO .HS 04/15/24 04/15/24 release (Cymbalta) fluticasone furoate 100 1 inh inhalation DAILY 04/15/24 06/01/24 mcg-vilanterol 25 mcg/dose inhalation powder (Breo Ellipta) fluticasone propionate 50 2 spray intranasal .hs 04/15/24 06/01/24 mcg/actuation nasal spray,suspension glucagon HCl 1 mg solution for 1 mg IM Q20M PRN hypoglycemia 04/15/24 06/17/24 injection (Glucagon (HCl) Emergency Kit) guaifenesin 600 mg tablet, 600 mg PO BID PRN congestion 04/15/24 04/15/24 extended release 12 hr (Mucinex) hydrocortisone 2.5 % topical cream 1 applic OH Q6H PRN hemorrhoids 04/15/24 06/01/24 with perineal applicator (Anusol-HC) insulin regular hum U-500 conc 500 25 unit subcut TID 04/15/24 06/17/24 unit/mL(3 mL) subcut pen (Humulin R U-500 (Conc) Insulin Kwikpen) insulin regular hum U-500 conc 500 35 unit subcut QPM 04/15/24 06/17/24 unit/mL(3 mL) subcut pen (Humulin R U-500 (Conc) Insulin Kwikpen) insulin regular hum U-500 conc 500 40 unit subcut QAM 04/15/24 06/17/24 unit/mL(3 mL) subcut pen (Humulin R U-500 (Conc) Insulin Kwikpen) lidocaine HCl 4 % topical cream 1 applic topical Q8H PRN pain 04/15/24 06/17/24 (Aspercreme (lidocaine HCl)) ammonium lactate 12 % lotion 1 applic topical DAILY 01/20/25 01/20/25 (AmLactin) fluticasone furoate 100 1 inh inhalation DAILY 01/20/25 01/20/25 mcg-vilanterol 25 mcg/dose inhalation powder (Breo Ellipta) Allergies Allergy/AdvReac Type Severity Reaction Status Date / Time aspirin Allergy Unknown Verified 06/17/24 06:57 gentamicin Allergy cutaneous Verified 06/17/24 06:57 hypersensativity NSAIDS (Non-Steroidal Allergy Unknown Verified 06/17/24 06:57 Anti-Inflamma oxycodone Allergy Unknown Verified 06/17/24 06:57 Penicillins Allergy Unknown Verified 06/17/24 06:57 shrimp Allergy Anaphylaxis Verified 06/01/24 01:09 tetanus Allergy Unknown Uncoded 06/01/24 01:09 Opioid HPI Opioid Management Most Recent Opioid Data: Last Pain Scale 7 02/13/25 15:43 02/13/25 Last MAR Pain Assessment 02/13/25 15:43 Review of Systems ROS Constitutional Denies: fever or chills Ears, nose, mouth, and throat Denies: throat pain or nasal congestion Cardiovascular Denies: chest pain Respiratory Denies: shortness of breath or cough Gastrointestinal Denies: nausea or vomiting Musculoskeletal Denies: back pain or neck pain Integumentary/Breast Reports: redness, skin pain and skin tenderness; Denies: rash Neurological Denies: headache, numbness in extremities or weakness in extremities Hematologic/Lymphatic Denies: easy bruising or easy bleeding PFSH PFSH Medical History (Updated 02/13/25 @ 16:59 by ALLY Nguyen) 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 ?Z79.4 - 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 (ICD-10) Hyperlipidemia, unspecified ?E78.5 - Hyperlipidemia, unspecified (ICD-10) End stage renal disease ?N18.6 - End stage renal disease (ICD-10) Hypertensive chronic kidney disease with stage 5 chronic kidney disease or end stage renal disease ?I12.0 - Hypertensive chronic kidney disease with stage 5 chronic kidney disease or end stage renal disease (ICD-10) Hyperkalemia ?E87.5 - Hyperkalemia (ICD-10) Other specified complication of vascular prosthetic devices, implants and grafts, initial encounter ?T82.898A - Other specified complication of vascular prosthetic devices, implants and grafts, initial encounter (ICD-10) 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 ?N25.81 - Secondary hyperparathyroidism of renal origin (ICD-10) ?N18.6 - End stage renal disease (ICD-10) ?Z99.2 - Dependence on renal dialysis (ICD-10) Personal history of urinary calculi ?Z87.442 - Personal history of urinary calculi (ICD-10) Discitis, unspecified, site unspecified ?M46.40 - Discitis, unspecified, site unspecified (ICD-10) Osteomyelitis of vertebra, thoracic region ?M46.24 - Osteomyelitis of vertebra, thoracic region (ICD-10) Ankle fracture, left ?S82.892A - Other fracture of left lower leg, initial encounter for closed fracture (ICD-10) Dialysis patient ?Z99.2 - Dependence on renal dialysis (ICD-10) Social History Smoking status: Former smoker Little interest or pleasure in doing things: not at all Feeling down, depressed, or hopeless: not at all Exam Narrative Exam Narrative: Gen.: Awake, alert, in no distress Head: Normocephalic, atraumatic ENT: Moist mucous membranes Respiratory: No respiratory distress Gastrointestinal: Abdomen is soft, nondistended and nontender to palpation Extremities: Healing surgical incision to the right anterior knee. Sutures in place. No dehiscence or drainage. Pulses by Doppler to the right foot where there is a large eschar area over the dorsum of the foot right great toe with discoloration, unable to flex or extend the toes. No sensation to light touch. Patient has sensation to light touch to the distal third of the calf. There is purulence and bloody drainage noted over the dorsal medial aspect of the right foot. No blistered areas or evidence of abscess. Psych: Normal mood and affect Neuro: No focal neuro deficit Skin: Warm, dry Constitutional Vital Signs, click to edit/add: Last Vital Signs Temp 98.4 F 02/13/25 15:02 Pulse 89 02/13/25 15:20 Resp 20 02/13/25 15:02 BP 93/53 02/13/25 15:02 Pulse Ox 97 02/13/25 15:02 O2 Del Method Room Air 02/13/25 15:02 Course Vital Signs Vital signs: Vital Signs Temperature 98.4 F 02/13/25 15:02 Pulse Rate 93 H 02/13/25 15:02 Respiratory Rate 20 02/13/25 15:02 Blood Pressure 93/53 02/13/25 15:02 Pulse Oximetry 97 02/13/25 15:02 Oxygen Delivery Method Room Air 02/13/25 15:02 Temperature 98.4 F 02/13/25 15:02 Pulse Rate 89 02/13/25 15:20 Respiratory Rate 20 02/13/25 15:02 Blood Pressure 93/53 02/13/25 15:02 Pulse Oximetry 97 02/13/25 15:02 Oxygen Delivery Method Room Air 02/13/25 15:02 Medical Decision Making MDM Narrative Medical decision making narrative: On arrival patient is noted to have an acutely infected right foot with evidence of decreased sensation, she does have pulses obtained by Doppler to the right foot and ankle. She is hemodynamically stable and awake and alert. Sepsis workup was initiated including blood cultures. Initial lactic acid is mildly elevated, labs are otherwise stable, patient is anemic. She was treated for pain and given Invanz and vancomycin in the ER. X-rays show no evidence of osteomyelitis with osteopenia noted. [facility] was contacted, discussed with Norma nurse practitioner for the hospitalist service ([id number]) who accepted the patient for transfer. Dr. Vazquez will be the accepting attending physician. Patient is stable at this time. Critical care time 35 minutes SHARED APC VISIT, PHYSICIAN ATTESTATION: [id number] I performed a substantive part of the MDM during the patient?s E/M visit. I personally evaluated and examined the patient. I personally made or approved the documented management plan and acknowledge its risk of complications. Medical Records Medical records reviewed: Yes I reviewed the patient's medical records Lab Data Lab results reviewed: Yes I reviewed the patient's lab results Labs: Lab Results 02/13/25 Range/Units 15:25 WBC 8.1 (4.0-11.0) 10^3/uL RBC 2.44 L (4.20-5.40) 10^6/uL Hgb 7.9 L (12.0-16.0) g/dL Hct 27.2 L (36.0-48.0) % MCV 111.5 H (81.0-99.0) fL MCH 32.4 (26.7-34.0) pg MCHC 29.0 L (29.9-35.2) g/dL RDW 15.9 H (11.0-15.0) % Plt Count 214 (150-450) 10^3/uL MPV 11.5 (9.5-13.5) fL Neut % (Auto) 71.2 (43.0-75.0) % Lymph % (Auto) 18.8 L (20.5-60.0) % [place] % (Auto) 5.6 (1.7-12.0) % Eos % (Auto) 2.5 (0.9-7.0) % Baso % (Auto) 0.9 (0.2-2.0) % Neut # (Auto) 5.8 (1.4-6.5) 10^3/uL Lymph # (Auto) 1.5 (1.2-3.8) 10^3/uL [place] # (Auto) 0.5 (0.3-0.8) 10^3/uL Eos # (Auto) 0.2 (0.0-0.7) 10^3/uL Baso # (Auto) 0.1 (0.0-0.1) 10^3/uL Abs Immat Gran (auto) 0.08 H (0.00-0.03) 10^3/uL Imm/Tot Granulo (auto) 1.0 H (0.0-0.5) % ESR >130 H (<=30) mm/hr PT 12.5 H (9.0-11.6) sec INR 1.20 APTT 38.5 H (22.3-36.2) sec VBG pH 7.430 (7.330-7.430) VBG pCO2 43.1 (40.0-52.0) mmHg Sodium 136 (136-145) mmol/L Potassium 4.2 (3.5-5.1) mmol/L Chloride 97 L (98-107) mmol/L Carbon Dioxide 29.3 (21.0-32.0) mmol/L Anion Gap 13.9 BUN 30.0 H (7.0-18.0) mg/dL Creatinine 4.62 H (0.55-1.02) mg/dL Est GFR ( Amer) 11 L (>=60 mL/min/1.73m^2) Est GFR (Non-Af Amer) 9 L (>=60 mL/min/1.73m^2) BUN/Creatinine Ratio 6.5 Glucose 250 H (74-106) mg/dL Lactate 2.3 H* (0.4-2.0) mmol/L Calcium 9.1 (8.5-10.1) mg/dL Total Bilirubin 0.3 (0.2-1.0) mg/dL AST 11 L (15-37) U/L ALT <6 L (14-59) U/L Alkaline Phosphatase 197 H (46-116) U/L C-Reactive Protein 14.34 H (<=0.50) mg/dL Total Protein 7.2 (6.4-8.2) g/dL Albumin 2.2 L (3.4-5.0) g/dL Globulin 5.0 g/dL Albumin/Globulin Ratio 0.4 Imaging Data XR foot : Attestation: I have reviewed the pertinent imaging results. Radiologist's impression: X-ray of the foot: Osteopenia with no evidence of osteomyelitis or abscess Critical Care Time Critical Care Time Critical Care Time: Yes Total Critical Care Time: 35 Attestation: 35 minutes of critical care time assessed for evaluation of potentially limb threatening condition and transfer to tertiary care Discharge Plan Discharge Chief Complaint: Wound/Laceration Clinical Impression: Wet gangrene, Chronic kidney disease, Pain in right leg, Anemia [facility] Time of Disposition Decision: 16:59 Discharge Location: [facility] Med Condition: Good Mode of Transportation: EMS Prescriptions / Home Meds: No Action acetaminophen 500 mg capsule 500 mg PO Q6H PRN (Reason: pain) allopurinol 100 mg tablet 100 mg PO DAILY albuterol sulfate 90 mcg/actuation HFA aerosol inhaler 2 puff INHALATION Q4H PRN (Reason: shortness of breath or wheezing) biotin 5 mg capsule 5 mg PO DAILY Boost Glucose Control 0.06-1.1 gram-kcal/mL liquid See Rx Instructions PO .QHS Rx Instructions: 237 ML orally QHS; cholecalciferol (vitamin D3) 25 mcg (1,000 unit) capsule 1,000 unit PO DAILY docusate sodium [Colace] 100 mg capsule 200 mg PO DAILY Eliquis 5 mg tablet 5 mg PO BID folic acid 1 mg tablet 1 mg PO DAILY Humulin R U-500 (Conc) Kwikpen 500 unit/mL (3 mL) insulin pen 20 unit SUBCUT .COMPLEX Rx Instructions: 20 units subcutaneously at bedtime; hyoscyamine sulfate 0.125 mg tablet, sublingual 0.125 mg sublingual Q4H PRN (Reason: dyspepsia) levothyroxine 125 mcg tablet 225 mcg PO DAILY pregabalin 50 mg capsule 100 mg PO DAILY midodrine 10 mg tablet 10 mg PO .QD Rx Instructions: 1 TAB M-W- DIALYSIS montelukast 10 mg tablet 10 mg PO DAILY hydrocodone-acetaminophen 5-325 mg tablet 2 tab PO Q12H PRN (Reason: pain) omeprazole 20 mg capsule,delayed release(DR/EC) 20 mg PO Q12H polyethylene glycol Powder See Rx Instructions miscellaneous .COMPLEX Rx Instructions: 17 GRAMS QD as directed; Laxative (sennosides) 15 mg tablet 15 mg PO DAILY sevelamer carbonate 800 mg tablet 800 mg PO .COMPLEX Rx Instructions: 800 mg orally bedtime; sevelamer carbonate 800 mg tablet 2,400 mg PO .HS SPS (with sorbitol) 15-20 gram/60 mL suspension 120 ml PO .COMPLEX Rx Instructions: 120 mL orally every 24hrs as needed for missed dialysis; nortriptyline 10 mg capsule 25 mg PO DAILY ondansetron HCl 4 mg tablet 4 mg PO Q6H levothyroxine 100 mcg tablet 100 mcg PO DAILY Rybelsus 3 mg tablet PO DAILY senna 8.6 mg capsule 8.6 mg PO DAILY fluticasone propionate 50 mcg/actuation spray,suspension 2 spray INTRANASAL .hs lidocaine HCl [Aspercreme (lidocaine HCl)] 4 % cream 1 applic topical Q8H PRN (Reason: pain) diphenhydramine HCl [Banophen] 25 mg capsule 25 mg PO Q8H PRN (Reason: itching) fluticasone furoate-vilanterol [Breo Ellipta] 100-25 mcg/dose blister with device 1 inh inhalation DAILY [facility] [employer] [facility] 10 billion cell -200 mg capsule 1 cap PO DAILY glucagon HCl [Glucagon (HCl) Emergency Kit] 1 mg recon soln 1 mg IM Q20M PRN (Reason: hypoglycemia) Rx Instructions: until target blood sugar attained hydrocortisone [Anusol-HC] 2.5 % cream with perineal applicator 1 applic OH Q6H PRN (Reason: hemorrhoids) guaifenesin [Mucinex] 600 mg tablet extended release 12hr 600 mg PO BID PRN (Reason: congestion) Humulin R U-500 (Conc) Kwikpen 500 unit/mL (3 mL) insulin pen 35 unit subcut QPM Rx Instructions: SUPPER Humulin R U-500 (Conc) Kwikpen 500 unit/mL (3 mL) insulin pen 40 unit subcut QAM Humulin R U-500 (Conc) Kwikpen 500 unit/mL (3 mL) insulin pen 25 unit subcut TID Rx Instructions: SLIDING SCALE duloxetine [Cymbalta] 30 mg capsule,delayed release(DR/EC) 30 mg PO .HS ammonium lactate [AmLactin] 12 % lotion 1 applic topical DAILY fluticasone furoate-vilanterol [Breo Ellipta] 100-25 mcg/dose blister with device 1 inh inhalation DAILY Print Language: Bengali Referrals: KELLI CARLSON [Primary Care Provider] - 1 week
[2025-02-13 15:36] LABS: Basophils Absolute Auto 0.1 10^3/uL (0.0-0.1); Basophils Percent Auto 0.9 % (0.2-2.0); Eosinophils Absolute Auto 0.2 10^3/uL (0.0-0.7); Eosinophils Percent Auto 2.5 % (0.9-7.0); Hematocrit 27.2 % (36.0-48.0); Hemoglobin 7.9 g/dL (12.0-16.0); Immature Granulocytes Abs Auto 0.08 10^3/uL (0.00-0.03); Lymphocytes Absolute Auto 1.5 10^3/uL (1.2-3.8); Lymphocytes Percent Auto 18.8 % (20.5-60.0); Mean Corpuscular Hemoglobin 32.4 pg (26.7-34.0); Mean Corpuscular Volume 111.5 fL (81.0-99.0); Mean Platelet Volume 11.5 fL (9.5-13.5); Monocytes Absolute Auto 0.5 10^3/uL (0.3-0.8); Monocytes Percent Auto 5.6 % (1.7-12.0); Neutrophils Absolute Auto 5.8 10^3/uL (1.4-6.5); Neutrophils Percent Auto 71.2 % (43.0-75.0); Platelet Count 214 10^3/uL (150-450); Red Blood Count 2.44 10^6/uL (4.20-5.40); Red Cell Distribution Width 15.9 % (11.0-15.0); White Blood Count 8.1 10^3/uL (4.0-11.0)
[2025-02-13 15:38] LABS: PCO2 VBG 43.1 mmHg (40.0-52.0)
[2025-02-13] MEDS: HYDROMORPHONE HCL 0.5 MG/0.5 ML SYRINGE IV (15:43)
[2025-02-13] MEDS: ERTAPENEM SODIUM 0.5 GM in 0.9 % SODIUM CHLORIDE 50 ML IV (15:43)
[2025-02-13] MEDS: ONDANSETRON PF 4 MG/2 ML VIAL IV (15:44)
[2025-02-13 15:45] LABS: C Reactive Protein 14.34 mg/dL (<=0.50)
[2025-02-13 15:46] LABS: Erythrocyte Sedimentation Rate >130 mm/hr (<=30)
[2025-02-13 16:01] LABS: Albumin Globulin Ratio 0.4; Albumin Level 2.2 g/dL (3.4-5.0); Alkaline Phosphatase 197 U/L (46-116); Anion Gap 13.9; Aspartate Amino Transferase 11 U/L (15-37); BUN Creatinine Ratio 6.5; Bilirubin Total 0.3 mg/dL (0.2-1.0); Calcium 9.1 mg/dL (8.5-10.1); Carbon Dioxide 29.3 mmol/L (21.0-32.0); Chloride 97 mmol/L (98-107); Estimated GFR (African America 11 (>=60 mL/min/1.73m^2); Estimated GFR (Non-African Ame 9 (>=60 mL/min/1.73m^2); Glucose 250 mg/dL (74-106); Partial Thromboplastin Time 38.5 sec (22.3-36.2); Potassium 4.2 mmol/L (3.5-5.1); Prothrombin Time 12.5 sec (9.0-11.6); Sodium 136 mmol/L (136-145); Total Protein 7.2 g/dL (6.4-8.2)
[2025-02-13 16:06] LABS: Alanine Aminotransferase <6 U/L (14-59)
[2025-02-13 16:08] LABS: Lactate/Lactic Acid 2.3 mmol/L (0.4-2.0)
--- NOTE | 2025-02-13 16:09 | PC.NURSE ---
Pt presents from Wound care where she went for assessment of her right non healing foot wound. Pt broke her distal femur 8 months ago and was admitted to [facility] for rehab where a blister to her foot has worsened into a large stasis ulcer with eschar. Pt was sent to a [facility] with cellulitis in December and was on a Levophed drip at that time. Pts wound care Dr sent her from clinic today for evaluation of possible wet gangrene. Pts foot does have post tibial and dorsalis pedis pulses per doppler, auscultated by this RN
[2025-02-13] MEDS: VANCOMYCIN HCL 1,500 MG in 0.9 % SODIUM CHLORIDE 500 ML 250 MG IV (16:26)
[2025-02-13] MEDS: 0.9 % SODIUM CHLORIDE 500 ML IV (19:34)
[2025-02-13 19:40] LABS: Glucometer 238 mg/dL (74-106)
== END 2025-02-13 21:05 | disposition short-term general hospital (02) ==
PROVIDERS: Physician Assistant; Emergency Provider Emergency Medicine; PCP Family Medicine
DX: I96 Gangrene, not elsewhere classified (principal); N18.6 End stage renal disease; Z99.2 Dependence on renal dialysis; R20.2 Paresthesia of skin; Z98.890 Other specified postprocedural states; Z87.891 Personal history of nicotine dependence; D64.9 Anemia, unspecified; M79.604 Pain in right leg; E11.621 Type 2 diabetes mellitus with foot ulcer; L97.413 Non-pressure chronic ulcer of right heel and midfoot with necrosis of muscle; L89.616 Pressure-induced deep tissue damage of right heel
CPT/HCPCS: 36415; 73620; 80053; 82800; 83605; 85025; 85610; 85652; 85730; 86140; 87040; 96365; 96366; 96368; 96375; 99285; G0463; J1171; J1335; J2405; J3370

== ENCOUNTER 2025-07-27 09:26 | Emergency (ER) | payer MEDICARE, MEDICAID, SELFPAY ==
[2025-07-27] VITALS (30 sets, daily range): BP systolic 78–114; BP diastolic 43–50; PULSE 71–161; TEMP 36.9; O2SAT 92–100; BMI 38.0
--- NOTE | 2025-07-27 09:40 | CT_ITS ---
The [address] [address] Patient Name: ANNA DOHERTY MRN: [id number] date: 1950 Sex: F Assigned Patient Location: ER Current Patient Location: ER Accession/Order Number: [id number] Exam Date: 07/27/2025 09:47 Report Date: 07/27/2025 10:03 At the request of: NAZARIO VALENCIA MD Procedure: CT stroke head/brain wo con CT stroke head/brain wo con 07/27/2025 9:55 AM SIGNS AND SYMPTOMS: difficulty finding words TECHNIQUE:Multi-detector CT axial slices of the brain were obtained without IV contrast. CT was performed with one or more of the following dose reduction techniques: Automated exposure control, adjustment of the mA and/or kV according to patient size, or use of iterative reconstruction technique. COMPARISON: 07/21/2023 FINDINGS: There is no shift of the midline structures, acute intracranial bleeding, mass effects, or evidence of acute ischemia. Atherosclerotic changes are noted in the V4 segments of the vertebral arteries and intravenous segments of the internal carotid arteries. There is age-related cortical atrophy. There is periventricular white matter hypoattenuation. The ventricular system is normal in size. The brainstem and the cerebellum are unremarkable. There is opacification of the left maxillary sinus, left ethmoid air cells, and the left frontal sinus. The visualized intraorbital contents and the infratemporal soft tissues show no acute abnormality. The osseous structures in the skull base and the calvarium show no abnormality. CT/CT stroke head/brain wo con IMPRESSION: No acute intracranial pathology. Chronic age-related neurodegenerative changes are noted as above. Impression dictated by: Khurram aMrtin M.D. 07/27/2025 10:03 AM Dictation Location: [employer] Electronically authenticated by: [id number] Y Date: 07/27/2025 10:03
--- NOTE | 2025-07-27 09:40 | ECG_ITS ---
The [facility] Test Date: 2025-07-27 Pat Name: ANNA DOHERTY Department: Room: - Gender: Female [employer]: : 1950 Requested By: [id number] Order Number: [id number] Reading MD: JOE DONAHUE Measurements Intervals [place] Rate: 76 P: 90 NC: 172 QRS: 67 QRSD: 82 T: 52 QT: 376 QTc: 407 Interpretive Statements 1100 Sinus rhythm 3113 Cannot rule out anterior myocardial infarction, probably old 8100 Low QRS voltage 9150 abnormal ECG Compared to ECG 01/20/2025 10:55:13 Myocardial infarct finding now present Sinus tachycardia no longer present Electronically Signed On 07-30-2025 13:34:45 EDT by JOE DONAHUE
[2025-07-27 09:47] LABS: Hematocrit 29.5 % (36.0-48.0); Hemoglobin 8.6 g/dL (12.0-16.0); Immature Granulocytes Abs Auto 0.10 10^3/uL (0.00-0.03); Immature Granulocytes Pct Auto 0.9 % (0.0-0.5); Lymphocytes Absolute Auto 1.7 10^3/uL (1.2-3.8); Mean Corpuscular HGB Conc 29.2 g/dL (29.9-35.2); Mean Corpuscular Hemoglobin 31.5 pg (26.7-34.0); Mean Corpuscular Volume 108.1 fL (81.0-99.0); Platelet Count 158 10^3/uL (150-450); Red Blood Count 2.73 10^6/uL (4.20-5.40); White Blood Count 11.8 10^3/uL (4.0-11.0)
[2025-07-27 10:13] LABS: INR 1.12; Prothrombin Time 11.7 sec (9.0-11.6)
[2025-07-27 10:20] LABS: Alanine Aminotransferase 7 U/L (14-59); Albumin Globulin Ratio 0.5; Albumin Level 2.2 g/dL (3.4-5.0); Alkaline Phosphatase 180 U/L (46-116); Anion Gap 14.8; Aspartate Amino Transferase 12 U/L (15-37); Blood Urea Nitrogen 54.0 mg/dL (7.0-18.0); Calcium 9.0 mg/dL (8.5-10.1); Carbon Dioxide 29.4 mmol/L (21.0-32.0); Chloride 101 mmol/L (98-107); Estimated GFR (African America 9 (>=60 mL/min/1.73m^2); Estimated GFR (Non-African Ame 7 (>=60 mL/min/1.73m^2); Globulin 4.8 g/dL; Glucose 109 mg/dL (74-106); Potassium 4.2 mmol/L (3.5-5.1); Sodium 141 mmol/L (136-145); Total Protein 7.0 g/dL (6.4-8.2)
--- NOTE | 2025-07-27 10:27 | ED.GENADUL1 ---
HPI HPI - General Adult General Chief complaint: Altered Mental Status Stated complaint: ALTERED MENTAL STATUS Time Seen by Provider: 07/27/25 09:40 Source: patient Mode of arrival: ambulance Limitations: no limitations History of Present Illness HPI narrative: 75-year-old female with history of end-stage renal disease on dialysis Monday, as well as history of diabetes status post debridement to her right foot ulcer 3 weeks ago, patient coming to us from the [facility] after she told them about difficulty speaking yesterday at 1 or 3 PM The patient mentioned that on arrival that she has been having this for the last 3 weeks and is not an issue that just started yesterday patient was upset because they brought her today for an issue that been going on for a while, the patient denies any headache nausea vomiting or any other concerns She also denies having any previous history of similar presentation, Related Data Home Medications ?Medication ?Instructions ?Recorded ?Confirmed acetaminophen 500 mg capsule 500 mg PO .q8 pain 05/22/23 07/27/25 albuterol sulfate 90 mcg/actuation 2 puff inhalation Q4H PRN 05/22/23 07/27/25 aerosol inhaler shortness of breath or wheezing allopurinol 100 mg tablet 100 mg PO DAILY 05/22/23 07/27/25 apixaban 5 mg tablet (Eliquis) 2.5 mg PO BID 05/22/23 02/13/25 cholecalciferol (vitamin D3) 25 1,000 unit PO DAILY 05/22/23 07/27/25 mcg (1,000 unit) capsule folic acid 1 mg tablet 1 mg PO DAILY 05/22/23 07/27/25 insulin regular hum U-500 conc 500 40 unit subcut QDAY 05/22/23 02/13/25 unit/mL(3 mL) subcut pen (Humulin R U-500 (Conc) Insulin Kwikpen) midodrine 10 mg tablet 10 mg PO TID 05/22/23 07/27/25 nutrition tx glu See Rx Instructions PO .QHS 05/22/23 02/13/25 intol,lac-free,soy-fiber 0.06 gram-1.1 kcal/mL liquid (Boost Glucose Control) montelukast 10 mg tablet 10 mg PO DAILY 05/23/23 07/27/25 omeprazole 20 mg capsule,delayed 20 mg PO Q12H 05/23/23 07/27/25 release polyethylene glycol See Rx Instructions miscellaneous 05/23/23 02/13/25 .COMPLEX sevelamer carbonate 800 mg tablet 1,600 mg PO TIDWMEAL 05/23/23 07/27/25 levothyroxine 100 mcg tablet 250 mcg PO DAILY 01/31/24 07/27/25 nortriptyline 10 mg capsule 25 mg PO DAILY 01/31/24 07/27/25 sennosides 8.6 mg capsule (senna) 8.6 mg PO DAILY 01/31/24 07/27/25 fluticasone propionate 50 2 spray intranasal .hs 04/15/24 07/27/25 mcg/actuation nasal spray,suspension glucagon HCl 1 mg solution for 1 mg IM Q20M PRN hypoglycemia 04/15/24 07/27/25 injection (Glucagon (HCl) Emergency Kit) insulin regular hum U-500 conc 500 15 unit subcut QPM 04/15/24 02/13/25 unit/mL(3 mL) subcut pen (Humulin R U-500 (Conc) Insulin Kwikpen) insulin regular hum U-500 conc 500 30 unit subcut QDAY 04/15/24 02/13/25 unit/mL(3 mL) subcut pen (Humulin R U-500 (Conc) Insulin Kwikpen) insulin regular hum U-500 conc 500 45 unit subcut QDAY 04/15/24 02/13/25 unit/mL(3 mL) subcut pen (Humulin R U-500 (Conc) Insulin Kwikpen) fluticasone furoate 100 1 inh inhalation DAILY 01/20/25 07/27/25 mcg-vilanterol 25 mcg/dose inhalation powder (Breo Ellipta) hyoscyamine sulfate 0.125 mg 0.125 mg PO Q4H PRN dyspepsia 02/13/25 07/27/25 tablet (Levsin) lactulose 10 gram/15 mL oral 10 g PO DAILY 02/13/25 07/27/25 solution apixaban 2.5 mg tablet (Eliquis) 2.5 mg PO BID 07/27/25 07/27/25 cefepime 2 gram/50 mL in dextrose 2 g IV .q3week 07/27/25 07/27/25 5 % intravenous piggyback cyclobenzaprine 10 mg tablet 10 mg PO TID PRN muscle spasm 07/27/25 07/27/25 docusate sodium 100 mg capsule 100 mg PO BID 07/27/25 07/27/25 (Colace) doxycycline monohydrate 100 mg 100 mg PO BID 07/27/25 07/27/25 capsule dulaglutide 0.75 mg/0.5 mL 0.75 mg subcut DAILY 07/27/25 07/27/25 subcutaneous pen injector (Trulicity) ferrous sulfate 325 mg (65 mg 325 mg PO DAILY 07/27/25 07/27/25 iron) tablet (FeroSul) pregabalin 100 mg capsule 100 mg PO BID 07/27/25 07/27/25 topiramate 25 mg tablet 25 mg PO DAILY 07/27/25 07/27/25 Allergies Allergy/AdvReac Type Severity Reaction Status Date / Time aspirin Allergy Unknown Verified 06/17/24 06:57 gentamicin Allergy cutaneous Verified 06/17/24 06:57 hypersensativity NSAIDS (Non-Steroidal Allergy Unknown Verified 06/17/24 06:57 Anti-Inflamma oxycodone Allergy Unknown Verified 06/17/24 06:57 Penicillins Allergy Unknown Verified 06/17/24 06:57 shrimp Allergy Anaphylaxis Verified 06/01/24 01:09 tetanus Allergy Unknown Uncoded 06/01/24 01:09 Opioid HPI Opioid Management Most Recent Opioid Data: Last Pain Scale 0 Today, 09:41 Review of Systems ROS Status of ROS 10 or more systems reviewed and unremarkable except as noted in history and below [facility] Medical History (Updated 07/27/25 @ 11:26 by Lori Pina MD) Cognitive communication deficit ?R41.841 - Cognitive communication deficit (ICD-10) assisted (current) use of insulin ?Z79.4 - assisted (current) use of insulin (ICD-10) Hyperlipidemia, unspecified ?E78.5 - Hyperlipidemia, unspecified (ICD-10) End stage renal disease ?N18.6 - End stage renal disease (ICD-10) Hypertensive chronic kidney disease with stage 5 chronic kidney disease or end stage renal disease ?I12.0 - Hypertensive chronic kidney disease with stage 5 chronic kidney disease or end stage renal disease (ICD-10) Hyperkalemia ?E87.5 - Hyperkalemia (ICD-10) Other specified complication of vascular prosthetic devices, implants and grafts, initial encounter ?T82.898A - Other specified complication of vascular prosthetic devices, implants and grafts, initial encounter (ICD-10) 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 ?N25.81 - Secondary hyperparathyroidism of renal origin (ICD-10) ?N18.6 - End stage renal disease (ICD-10) ?Z99.2 - Dependence on renal dialysis (ICD-10) Personal history of urinary calculi ?Z87.442 - Personal history of urinary calculi (ICD-10) Discitis, unspecified, site unspecified ?M46.40 - Discitis, unspecified, site unspecified (ICD-10) Osteomyelitis of vertebra, thoracic region ?M46.24 - Osteomyelitis of vertebra, thoracic region (ICD-10) Ankle fracture, left ?S82.892A - Other fracture of left lower leg, initial encounter for closed fracture (ICD-10) Dialysis patient ?Z99.2 - Dependence on renal dialysis (ICD-10) Social History Smoking status: Former smoker Little interest or pleasure in doing things: not at all Feeling down, depressed, or hopeless: not at all Exam Narrative Exam Narrative: Nurses notes and vital signs reviewed and patient is not hypoxic. General: Well-appearing and in no apparent distress. Skin: Warm, dry, no pallor noted. No rash. Head: Normocephalic, atraumatic. Neck: Supple, non-tender. Eye: Pupils are equal, round and EOMI. No scleral icterus. Cardiovascular: Regular Rate and Rhythm without murmur, gallop or rub. Respiratory: No accessory muscle use or respiratory distress. Lungs are clear to auscultation, no wheezing, rales or rhonchi Chest Wall: no tenderness Back: No midline thoracic or lumbar vertebral tenderness. No CVA tenderness Musculoskeletal: normal ROM, no calf or popliteal tenderness, left upper extremity fistula GI: Abdomen is soft, non-distended. Normal bowel sounds. No masses appreciated. No tenderness to palpation. No rebound, guarding, or rigidity noted. Neurological: A&O x4. No cranial nerve dysfunction observed.. Moves all extremities. Sensation intact. Patient had difficulty speaking out when she gets frustrated to speak certain words but with another attempt she will get the right Psychiatric: Cooperative and interactive. Normal mood and affect. Constitutional Vital Signs, click to edit/add: Last Vital Signs Temp 98.4 F 07/27/25 09:29 Pulse 79 07/27/25 09:29 Resp 20 07/27/25 09:29 BP 99/48 L 07/27/25 09:29 Pulse Ox 100 07/27/25 09:47 O2 Del Method Nasal Cannula 07/27/25 09:47 O2 Flow Rate 3 07/27/25 09:47 Course Vital Signs Vital signs: Vital Signs Temperature 98.4 F 07/27/25 09:29 Pulse Rate 79 07/27/25 09:29 Respiratory Rate 20 07/27/25 09:29 Blood Pressure 99/48 L 07/27/25 09:29 Pulse Oximetry 99 07/27/25 09:29 Oxygen Delivery Method Nasal Cannula 07/27/25 09:29 Oxygen Delivery Flow Rate 3 07/27/25 09:29 Temperature 98.4 F 07/27/25 09:29 Pulse Rate 79 07/27/25 09:29 Respiratory Rate 20 07/27/25 09:29 Blood Pressure 99/48 L 07/27/25 09:29 Pulse Oximetry 100 07/27/25 09:47 Oxygen Delivery Method Nasal Cannula 07/27/25 09:47 Oxygen Delivery Flow Rate 3 07/27/25 09:47 Medical Decision Making MDM Narrative Medical decision making narrative: The patient EKG showing sinus rhythm with a heart rate of [address] elevation or depression Initially the patient presentation was concerning for a stroke that is either around [address] the patient CT head did not show any acute pathology at the moment But the patient presentation is highly suspicious for a stroke that passed the window for tPA and the patient definitely need the CT angio head and neck with her history of renal failure creatinine of 5 and BUN of 50 with 4.2 potassium The patient case discussed with in Tele neurology stroke team and he after reviewing the CAT scan questions the patient to have inpatient management with a CT angio head and neck that has to be done before her dialysis so that she will not have prolonged exposure to the contrast and she also might need inpatient MRI The patient requested to be transferred to [facility] and I did speak with in the hospitalist service in [facility] and he accepted the patient Lab Data Labs: Lab Results 07/27/25 Range/Units 09:40 WBC 11.8 H (4.0-11.0) 10^3/uL RBC 2.73 L (4.20-5.40) 10^6/uL Hgb 8.6 L (12.0-16.0) g/dL Hct 29.5 L (36.0-48.0) % MCV 108.1 H (81.0-99.0) fL MCH 31.5 (26.7-34.0) pg MCHC 29.2 L (29.9-35.2) g/dL RDW 16.2 H (11.0-15.0) % Plt Count 158 (150-450) 10^3/uL MPV 13.0 (9.5-13.5) fL Neut % (Auto) 77.9 H (43.0-75.0) % Lymph % (Auto) 14.0 L (20.5-60.0) % [place] % (Auto) 4.3 (1.7-12.0) % Eos % (Auto) 2.3 (0.9-7.0) % Baso % (Auto) 0.6 (0.2-2.0) % Neut # (Auto) 9.2 H (1.4-6.5) 10^3/uL Lymph # (Auto) 1.7 (1.2-3.8) 10^3/uL [place] # (Auto) 0.5 (0.3-0.8) 10^3/uL Eos # (Auto) 0.3 (0.0-0.7) 10^3/uL Baso # (Auto) 0.1 (0.0-0.1) 10^3/uL Abs Immat Gran (auto) 0.10 H (0.00-0.03) 10^3/uL Imm/Tot Granulo (auto) 0.9 H (0.0-0.5) % PT 11.7 H (9.0-11.6) sec INR 1.12 Sodium 141 (136-145) mmol/L Potassium 4.2 (3.5-5.1) mmol/L Chloride 101 (98-107) mmol/L Carbon Dioxide 29.4 (21.0-32.0) mmol/L Anion Gap 14.8 BUN 54.0 H (7.0-18.0) mg/dL Creatinine 5.88 H* (0.55-1.02) mg/dL Est GFR ( Amer) 9 L (>=60 mL/min/1.73m^2) Est GFR (Non-Af Amer) 7 L (>=60 mL/min/1.73m^2) BUN/Creatinine Ratio 9.2 Glucose 109 H (74-106) mg/dL Calcium 9.0 (8.5-10.1) mg/dL Total Bilirubin 0.4 (0.2-1.0) mg/dL AST 12 L (15-37) U/L ALT 7 L (14-59) U/L Alkaline Phosphatase 180 H (46-116) U/L Troponin I High Sens 8.6 (4.0-51.3) pg/mL Total Protein 7.0 (6.4-8.2) g/dL Albumin 2.2 L (3.4-5.0) g/dL Globulin 4.8 g/dL Albumin/Globulin Ratio 0.5 Discharge Plan Discharge Chief Complaint: Altered Mental Status Clinical Impression: Stroke, Dysarthria, ESRD on dialysis Patient Disposition: [facility] Time of Disposition Decision: 11:26
[2025-07-27] MEDS: 0.9 % SODIUM CHLORIDE 1,000 ML 500 ML IV (12:17)
[2025-07-27] MEDS: MIDODRINE HCL 5 MG TABLET 10 MG PO (12:18)
== END 2025-07-27 14:11 | disposition short-term general hospital (02) ==
PROVIDERS: Emergency Provider Emergency Medicine; PCP Family Medicine
DX: I63.9 Cerebral infarction, unspecified (principal); R47.1 Dysarthria and anarthria; N18.6 End stage renal disease; Z99.2 Dependence on renal dialysis; E11.22 Type 2 diabetes mellitus with diabetic chronic kidney disease; L97.429 Non-pressure chronic ulcer of left heel and midfoot with unspecified severity; Z79.4 Long term (current) use of insulin; Z79.85 Long-term (current) use of injectable non-insulin antidiabetic drugs; Z87.891 Personal history of nicotine dependence
CPT/HCPCS: 36415; 70450; 80053; 84484; 85025; 85610; 93005; 99285

== ENCOUNTER 2025-07-31 10:23 | Outpatient (OUT) | payer MEDICARE, MEDICAID, SELFPAY | END 2025-07-31 10:24 | disposition home or self-care (01) | LOC: LAB 10:24 | PROVIDERS: PCP Family Medicine; Visit Provider Family Medicine | DX: Z01.812 Encounter for preprocedural laboratory examination (principal); B95.61 Methicillin susceptible Staphylococcus aureus infection as the cause of diseases classified elsewhere | CPT/HCPCS: 87081 ==